=== PATIENT | male | born 1955 | race Caucasian/White ===

== ENCOUNTER 2020-06-24 13:01 | Outpatient (REF) | payer SELFPAY | END 2020-06-24 13:02 | disposition home or self-care (01) | LOC: HO.HAP 13:01 | PROVIDERS: Visit Provider Internal Medicine | DX: Z46.1 Encounter for fitting and adjustment of hearing aid (principal) | CPT/HCPCS: V5264 ==

== ENCOUNTER 2020-08-24 12:34 | Outpatient (REF) | payer OTHER, SELFPAY | END 2020-08-24 12:35 | disposition home or self-care (01) | LOC: HO.LAB 12:34 | PROVIDERS: PCP Internal Medicine; Visit Provider Internal Medicine | DX: Z20.828 Contact with and (suspected) exposure to other viral communicable diseases (principal) | CPT/HCPCS: C9803; U0003 ==

== ENCOUNTER 2021-03-13 06:07 | Outpatient (REF) | payer OTHER, SELFPAY ==
[2021-03-13 06:59] LABS: MANUAL DIFF FLAG NO
[2021-03-13 07:01] LABS: Basophils Absolute Auto 0.1 X10*3/uL (0.0-0.2); Basophils Percent Auto 0.6 % (0-2); Eosinophils Absolute Auto 0.6 X10*3/uL (0.0-0.4); Eosinophils Percent Auto 6.1 % (0-4); Hemoglobin 15.8 g/dl (14.0-18.0); Imm Gran Abs Auto 0.03 X10*3/uL (0.00-0.03); Imm Gran Pct Auto 0.3 % (0.0-0.4); Lymphocytes Absolute Auto 2.5 X10*3/uL (1.2-4.9); Lymphocytes Percent Auto 25.1 % (20-40); Mean Corpuscular HGB Conc 34.3 g/dl (31.0-36.0); Mean Corpuscular Hemoglobin 31.7 pg (27.0-33.0); Mean Corpuscular Volume 92.4 fL (80-98); Mean Platelet Volume 9.9 fL (9.4-12.4); Monocytes Absolute Auto 0.8 X10*3/uL (0.1-1.2); Monocytes Percent Auto 8.1 % (2-11); Neutrophils Absolute Auto 5.9 X10*3/uL (2.0-8.3); Neutrophils Percent Auto 59.8 % (45-73); Platelet Count 326 X10*3/uL (160-400); Red Blood Count 4.98 X10*6/uL (4.60-5.80); Red Cell Distribution Width 12.3 % (11.0-16.0); White Blood Count 9.8 X10*3/uL (4.8-10.8)
[2021-03-13 07:26] LABS: Alanine Aminotransferase 16 U/L (0-40); Albumin Level 4.6 g/dL (3.5-5.0); Alkaline Phosphatase 72 U/L (39-117); Anion Gap 14 (12-20); Aspartate Amino Transferase 21 U/L (5-37); Bilirubin Total 0.4 mg/dL (0.0-1.0); Blood Urea Nitrogen 16 mg/dL (9-16); Carbon Dioxide 29 mmol/L (22-29); Chloride 105 mmol/L (96-108); Cholesterol 172 mg/dL; Estimated Glomerular Filt Rate > 60; Glucose Random 134 mg/dL (60-115); HDL Cholesterol 52 mg/dL; LDL Cholesterol Calculated 100 mg/dl; Sodium 143 mmol/L (135-145); Total Protein 7.6 g/dL (6.5-8.0); Triglycerides 103 mg/dL
[2021-03-13 07:49] LABS: Free T4 (Free Thyroxine) 0.87 ng/dL (0.71-1.85); Prostate Specific Antigen Scr 2.95 ng/mL (<0.05-4.0); Thyroid Stimulating Hormone 0.67 uIU/mL (0.32-4.0)
[2021-03-13 08:12] LABS: Estimated Average Glucose 114 mg/dL; Hemoglobin A1C 151.9601 umol/L; Hemoglobin A1c % 5.6 %
[2021-03-13 08:17] LABS: Vitamin B12 540 pg/mL (200-900)
[2021-03-13 09:44] LABS: Creatinine Urine 78.79 mg/dL; Microalbumin Urine < 5.0 mg/L
== END 2021-03-13 06:08 | disposition home or self-care (01) ==
LOC: HO.LAB 06:07
PROVIDERS: PCP Internal Medicine; Visit Provider Internal Medicine
DX: Z12.5 Encounter for screening for malignant neoplasm of prostate (principal); E11.65 Type 2 diabetes mellitus with hyperglycemia; E78.00 Pure hypercholesterolemia, unspecified
CPT/HCPCS: 36415; 80053; 80061; 82043; 82607; 82746; 83036; 84153; 84439; 84443; 85025

== ENCOUNTER 2021-05-29 15:43 | Outpatient (REF) | payer OTHER, SELFPAY | END 2021-05-29 15:44 | disposition home or self-care (01) | LOC: HO.LAB 15:43 | PROVIDERS: PCP Internal Medicine; Visit Provider Internal Medicine | DX: Z20.822 Contact with and (suspected) exposure to COVID-19 (principal) | CPT/HCPCS: C9803; U0003; U0005 ==

== ENCOUNTER 2021-06-15 08:25 | Outpatient (REF) | payer OTHER, SELFPAY ==
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
--- NOTE | 2021-06-20 12:55 | MHC.AU.MED ---
Medical Clearance for Hearing Instrumentation Date: 06/20/21 Patient Name: Nabeel Saha Date of : 1955 Referring Provider: Kerline Chadwick MD We have seen your patient on 06/15/21 and have determined that they are a candidate for amplification (See accompanying report). Specifically, they would benefit from: Hearing aid use in both ears There is a statute that addresses Medical Evaluation Requirements prior to fitting a patient with a hearing aid. According to [place] statute 265 CMR:6.03(1), (a) General. Except as provided in 265 CMR 6.03(1)(b), a tenderizer tender shall not sell a hearing aid unless the prospective user has presented to the tenderizer tender a written statement signed by a licensed physician that states that the patient's hearing loss has been medically evaluated and the patient may be considered a candidate for a hearing aid. The medical evaluation must have taken place within the preceding six months. Please note: Due to the [place] Statute referenced above, we cannot accept a signature other than that of a licensed physician. DIVISION LEADER and PA signatures cannot be accepted. I am in agreement with the above recommendation. There is no medical contraindication for hearing instrumentation. Physician Signature Date Physician Name (Printed)
== END 2021-06-15 08:26 | disposition home or self-care (01) ==
LOC: HO.SH 08:25
PROVIDERS: Visit Provider Internal Medicine
DX: H91.90 Unspecified hearing loss, unspecified ear (principal)
CPT/HCPCS: 92557; 92567

== ENCOUNTER 2021-06-27 15:10 | Outpatient (REF) | payer SELFPAY | END 2021-06-27 15:11 | disposition home or self-care (01) | LOC: HO.HAP 15:10 | PROVIDERS: Visit Provider Internal Medicine | DX: Z13.89 Encounter for screening for other disorder (principal) ==

== ENCOUNTER → 2021-08-23 13:37 | Outpatient (BNVA) | payer OTHER, SELFPAY | PROVIDERS: PCP Internal Medicine; Visit Provider Dietitian, Registered | DX: E11.65 Type 2 diabetes mellitus with hyperglycemia (principal) | CPT/HCPCS: 97802 ==

== ENCOUNTER 2021-08-25 13:53 | Outpatient (REF) | payer SELFPAY | END 2021-08-25 13:54 | disposition home or self-care (01) | LOC: HO.HAP 13:53 | PROVIDERS: Visit Provider Internal Medicine | DX: Z13.89 Encounter for screening for other disorder (principal) ==

== ENCOUNTER 2021-10-24 14:02 | Outpatient (REF) | payer OTHER, SELFPAY ==
--- NOTE | ~2021-10-24 | US_ITS ---
EXAMINATION: US ABDOMEN COMPLETE CLINICAL INFORMATION: Right upper quadrant abdominal pain. COMPARISON: CT abdomen 03/11/2007 TECHNIQUE: Real-time imaging of the abdominal viscera. FINDINGS: PANCREAS: Normal. ABDOMINAL AORTA: The proximal, mid, and distal segments are normal in caliber. Calcific plaque is present in the aorta. INFERIOR VENA CAVA: Visualized portions are normal. LIVER: Normal. The liver is normal in size. The liver contour is normal. Parenchymal echogenicity is normal. No focal hepatic lesion. There is no intrahepatic biliary duct dilatation seen. GALLBLADDER: A single 3 mm polyp is present. The gallbladder is physiologically distended without evidence of stones, sludge, wall thickening or pericholecystic fluid. COMMON BILE DUCT: Normal in caliber measuring 0.24 cm in diameter. RIGHT KIDNEY: A 4 x 4 x 3 mm upper pole echogenic focus seen consistent with a calculus, nonobstructing. No hydronephrosis or focal parenchymal lesions. The kidney measures 12.4 cm in maximum dimension. LEFT KIDNEY: There is a 5 x 2 x 2 mm lower pole echogenic focus seen consistent with a nonobstructing calculus. At the time of the 2006 a distal obstructing stone was seen in left distal ureter. No hydronephrosis or focal parenchymal lesions. The kidney measures 12.7 cm in maximum dimension. SPLEEN: Normal. The spleen measures 12.2 cm in maximum dimension. FREE FLUID: None. US/US abdomen complete IMPRESSION: 1. Nonobstructing 5 mm left lower pole calculus. 2. A 4 mm nonobstructing right upper pole calculus. 3. A 3 mm gallbladder polyp.
== END 2021-10-24 14:03 | disposition home or self-care (01) ==
LOC: HO.HMGCX 14:02
PROVIDERS: PCP Internal Medicine; Visit Provider Internal Medicine
DX: R10.9 Unspecified abdominal pain (principal); R07.9 Chest pain, unspecified; M79.89 Other specified soft tissue disorders
CPT/HCPCS: 76700

== ENCOUNTER → 2021-10-25 13:28 | Outpatient (BNVA) | payer OTHER, SELFPAY | PROVIDERS: PCP Internal Medicine; Visit Provider Dietitian, Registered | DX: E11.65 Type 2 diabetes mellitus with hyperglycemia (principal); R63.4 Abnormal weight loss; Z68.22 Body mass index [BMI] 22.0-22.9, adult; Z79.84 Long term (current) use of oral hypoglycemic drugs | CPT/HCPCS: 97803 ==

== ENCOUNTER 2021-12-21 10:00 | Outpatient (RCR) | payer OTHER, SELFPAY ==
[2021-12-07 12:07] VITALS: BMI 23.0
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
--- NOTE | 2021-12-07 15:14 | PC.NURSE ---
Case opened in treatment team
--- NOTE | 2021-12-12 11:45 | PC.NURSE ---
I called and left a message with Raeann Early [facility], the clients therapsit, to call to discuss client progress and after care plans.
--- NOTE | 2021-12-12 14:29 | P.PNPSP_ITS ---
Subjective Subjective Date of Service: 12/12/21 Reason For Visit: excessive hoarding, ADHD Guardianship: No Medical Problems Affecting Mental Status: No Interim History: Reports today has been a stressful day so far . Attributes this to a long conversation he had yesterday with his sister. No SI/HI, no safety concerns. Continues with depressed mood, including poor sleep / appetite. Willing to try mirtazapine. Continues with nightmares, hoarding behaviors. Medication Compliance: Yes Side effects from medications: No Attending Groups: Yes Review of Systems Acute medical concerns: No Medical Review of Systems: unchanged Review of Systems Review of Systems Yes all other systems are reviewed and are negative Constitutional: Reports no additional constitutional complaints Mental Status Exam Mental Status Exam Narrative: Well-developed, well nourished male, in NAD. Patient Appearance: Well Grooomed and Appropriate Patient Orientation: Person, Place, Time and Situation Level of Consciousness: Awake, Appropriate and Alert Patient Behavior: Appropriate, Cooperative and Good Eye Contact Mood Description: Depressed and Anxious Affect Description: Depressed and Anxious Patient Cognition Impaired: No Ability to Follow Directions: Good Speech Pattern: Clear, Appropriate and Coherent Memory Description: Intact Hallucinations: None Delusions: Not Present Thought Process: Intact Thought Content: positive for Intact Depressive Symptoms: Increased Anxiety, Insomnia, Difficulty Sleeping, Changes in Appetite (decreased, eating only some days during week. ), Crying Spells, Loss of Int. in Activity, Feelings of Worthlessness, Hopelessness, Feelings of Guilt, Unhappiness, Increased Fatigue, Low Self Esteem and Difficulty Concentrating Judgement: Fair Diagnostics Vital Signs (24Hr): BMI result Body Mass Index 23.0 Assessment & Plan Assessment & Plan (1) MDD (major depressive disorder), recurrent episode, moderate: Status: Acute Code(s): F33.1 - Major depressive disorder, recurrent, moderate Assessment and Plan: Reports today has been a stressful day so far . Attributes this to a long conversation he had yesterday with his sister. No SI/HI, no safety concerns. Continues with depressed mood, including poor sleep / appetite. Willing to try mirtazapine. Continues with nightmares, hoarding behaviors. Discussed stopping trazodone, and trying mirtazapine at night, in order to help with sleep and appetite. He reports he has had to force himself to eat at times due to his depression, and does not want to lose any more weight. We also discussed prazosin for nightmares. He was advisedto discuss with his primary care provider first, as he is already prescribed losartan, which is an antihypertensive, but also has protective factors regarding kidney damage related to diabetes. Discussed potential for low BP if added prazosin to current med regimen. He says that groups are helping. He says conversation with sister was difficult, but that she was supportive. He spent some time with a friend yesterday, which he says was also helpful. (2) Chronic post-traumatic stress disorder (PTSD): Status: Acute Code(s): F43.12 - Post-traumatic stress disorder, chronic (3) Hoarding disorder: Status: Acute Code(s): F42.3 - Hoarding disorder Plan 1. Stop trazodone. 2. Start mirtazapine 7.5mg at bedtime. (7-day script sent to pharmacy). 3. Continue with current [facility] plan of care. 4. Follow-up as per protocol. Patient educated on: diagnosis, medication risk/benefits, therapeutic strategies and medical condition Informed Consent: understands Reason for contiued partial hosp. stay Substantial Risk for: harm to self, inability to function, rapid decompensation and med/psych decompensation Certification I certify that partial hospital treatment is medically necessary due to the symptoms and problems resulting from the patient's mental illness and the failure to treat the patient at the partial hospital level of care would likely result in the patient requiring inpatient psychiatric care which could not be prevented at a less intensive level of care. I spent minutes with the patient and/or on the patient floor today, greater than?50% of which was spent counseling/coordinating care. Discharge Plan Discharge Attending provider: Jeramie Gonzalse Medications: New mirtazapine 7.5 mg tablet 7.5 mg PO BEDTIME 7 Days Qty: 7 0RF Discontinued trazodone 100 mg tablet 100 mg PO BEDTIME PRN (Reason: sleep) Qty: 30 4RF No Action simvastatin 5 mg tablet 5 mg PO DAILY 0RF lorazepam 1 mg tablet 1 mg PO BID-TID PRN (Reason: anxiety) 30 Days Qty: 90 0RF Rx Instructions: Take 2-3 times daily as needed. metformin 500 mg tablet 500 mg PO BID Qty: 180 3RF losartan 25 mg tablet 25 mg PO DAILY Qty: 90 3RF methylphenidate HCl 60 mg capsule,ER biphasic 50-50 60 mg PO DAILY 30 Days Qty: 30 0RF gabapentin 300 mg capsule 600 mg PO TID 90 Days Qty: 540 2RF sertraline 100 mg tablet 200 mg PO DAILY Qty: 180 2RF bupropion HCl 150 mg tablet sustained-release 12 hr 150 mg PO DAILY Qty: 30 0RF mupirocin 2 % ointment 1 appl topical TID Qty: 22 0RF Telehealth Telehealth Location of provider rendering services: practice address Location of patient: address on file Patient Identification confirmed using: Name, : Yes Telehealth method: video Patient verbally consented to treatment: Yes Patient verbally consented to billing insurance company: Yes Patient informed of any privacy concerns related to visit: Yes Time spent with patient (mins): 20
--- NOTE | 2021-12-18 11:51 | PC.NURSE ---
I called the client to talked about the clutter anonymous groups online. He agrees to gideon which times may work for him.
--- NOTE | 2021-12-20 08:27 | PC.NURSE ---
I spoke with the clients therapist Raeann GARCIA. We discussed client's depression and disorganization and the possibility of having the client stay longer in [facility].
--- NOTE | 2021-12-20 11:34 | P.PNPSP_ITS ---
Subjective Subjective Date of Service: 12/20/21 Reason For Visit: excessive hoarding, ADHD Guardianship: No Medical Problems Affecting Mental Status: No Interim History: Describes mood as sad . No SI/HI. Has anxiety regarding what to do after d/c from [facility] today, structure. RTW on Saturday. Asking for work note. Plans to try [employer] for hoarding. Medication Compliance: Yes Side effects from medications: No Attending Groups: Yes Review of Systems Acute medical concerns: No Medical Review of Systems: unchanged Review of Systems Review of Systems Yes all other systems are reviewed and are negative Constitutional: Reports no additional constitutional complaints Mental Status Exam Mental Status Exam Narrative: Met with patient over phone, due to a difficulty he had with logging into meeting. Speech/language was regular rate and rhythm, full prosody, normal volume. Patient Appearance: Appropriate Patient Orientation: Person, Place, Time and Situation Level of Consciousness: Awake, Appropriate and Alert Patient Behavior: Appropriate and Cooperative Mood Description: Sad Affect Description: Anxious Patient Cognition Impaired: No Ability to Follow Directions: Good Speech Pattern: Clear, Appropriate and Coherent Memory Description: Intact Hallucinations: None Delusions: Not Present Thought Process: Intact, Goal Oriented and Linear Thought Content: positive for Intact, positive for Goal Oriented and positive for Linear Depressive Symptoms: Increased Anxiety, Loss of Int. in Activity, Unhappiness, Low Self Esteem and Difficulty Concentrating Judgement: Good Judgement and Insight: Displays insight, states he knows he needs to focus on issues in therapy, includ ing hoarding. Diagnostics Vital Signs (24Hr): BMI result Body Mass Index 23.0 Assessment & Plan Assessment & Plan (1) Hoarding disorder: Status: Acute Code(s): F42.3 - Hoarding disorder Assessment and Plan: Patient expressed ongoing anxiety related to his hoarding. He plans to contact [employer], and is hoping that there 12 step approach will be helpful/useful. He would like to attend a meeting in the [place] area. (2) MDD (major depressive disorder), recurrent episode, moderate: Status: Acute Code(s): F33.1 - Major depressive disorder, recurrent, moderate Assessment and Plan: Patient describes his mood today as ?sad ?. He states that he has found PHP to be helpful. He expressed anxiety regarding completing program and returning to work. He states that he is nervous, and does not feel ready to resume his full duties at work. Discussed in detail possibility of his speaking with his outpatient providers to take a further leave of absence from work. He states that he would like to do this, and plans to contact them. No SI/HI, no safety concern at this time. Patient is satisfied with current medication regimen, no changes at this time. He will continue to work with his primary care provider regarding medications. (3) Chronic post-traumatic stress disorder (PTSD): Status: Acute Code(s): F43.12 - Post-traumatic stress disorder, chronic (4) Anxiety: Status: Acute Code(s): F41.9 - Anxiety disorder, unspecified Plan 1. Patient appears stable for discharge from [facility] at this time. 2. Patient will follow-up with outpatient providers going forward. Patient educated on: diagnosis, medication risk/benefits and therapeutic strategies Informed Consent: understands Reason for contiued partial hosp. stay Substantial Risk for: stable for discharge Certification I certify that partial hospital treatment is medically necessary due to the symp toms and problems resulting from the patient's mental illness and the failure to treat the patient at the partial hospital level of care would likely result in the patient requiring inpatient psychiatric care which could not be prevented at a less intensive level of care. I spent 25_ minutes with the patient and/or on the patient floor today, greater than?50% of which was spent counseling/coordinating care. Discharge Plan Discharge Attending provider: Jeramie Gonzales Medications: New mirtazapine 7.5 mg tablet 7.5 mg PO BEDTIME 7 Days Qty: 7 0RF Discontinued trazodone 100 mg tablet 100 mg PO BEDTIME PRN (Reason: sleep) Qty: 30 4RF No Action simvastatin 5 mg tablet 5 mg PO DAILY 0RF lorazepam 1 mg tablet 1 mg PO BID-TID PRN (Reason: anxiety) 30 Days Qty: 90 0RF Rx Instructions: Take 2-3 times daily as needed. metformin 500 mg tablet 500 mg PO BID Qty: 180 3RF losartan 25 mg tablet 25 mg PO DAILY Qty: 90 3RF methylphenidate HCl 60 mg capsule,ER biphasic 50-50 60 mg PO DAILY 30 Days Qty: 30 0RF gabapentin 300 mg capsule 600 mg PO TID 90 Days Qty: 540 2RF sertraline 100 mg tablet 200 mg PO DAILY Qty: 180 2RF bupropion HCl 150 mg tablet sustained-release 12 hr 150 mg PO DAILY Qty: 30 0RF mupirocin 2 % ointment 1 appl topical TID Qty: 22 0RF Stand Alone Forms: Patient Portal Discharge page Telehealth Telehealth Location of provider rendering services: practice address Location of patient: address on file Patient Identification confirmed using: Name, : Yes Telehealth method: voice only (Patient was unable to log into video, visit was held via telephone.) Patient verbally consented to treatment: Yes Patient verbally consented to billing insurance company: Yes Patient informed of any privacy concerns related to visit: Yes Minutes spent on Phone/Video with Pt.: 20
--- NOTE | 2021-12-20 13:02 | PC.NURSE ---
Patient scheduled to discharge from the program today. Patient stated he feels sad regarding leaving the program and stated he does not feel ready to go back to work however stated he is currently using his vacation time in order to do the program. Educated patient about talking to human resources regarding his benefits and mental health. Patient stated he would look into it. Patient denied SI or thoughts to harm himself. Reviewed patient medications with patient. Patient reports he is taking them as prescribed.
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
--- NOTE | 2021-12-22 08:37 | PC.NURSE ---
Patient struggling with severe depressive sxs with passive SI. Patient referred to [facility] ER crisis for an evaluation d/t symptoms. See Giana Hastings QA ARCHITECT note. Patient was admitted to inpatient level of care.
--- NOTE | 2021-12-22 10:22 | PC.NURSE ---
I spoke with the clients therapist Brit GARCIA about the clients presentation yesterday and inpatient admission
== END 2021-12-21 23:59 | disposition home or self-care (01) ==
LOC: HO.PHPA 10:00
PROVIDERS: Visit Provider Psychiatry & Neurology Psychiatry
DX: F33.1 Major depressive disorder, recurrent, moderate (principal); F43.12 Post-traumatic stress disorder, chronic; F42.3 Hoarding disorder; F90.2 Attention-deficit hyperactivity disorder, combined type
CPT/HCPCS: 90791; 90853

== ENCOUNTER 2021-12-21 14:38 | Inpatient (IN) | payer OTHER, SELFPAY ==
--- NOTE | 2021-12-21 | ECG_ITS ---
Test Reason : CP Blood Pressure : / mmHG Vent. Rate : 086 BPM Atrial Rate : 086 BPM P-R Int : 132 ms QRS Dur : 092 ms QT Int : 382 ms P-R-T Axes : 064 035 046 degrees QTc Int : 457 ms Normal sinus rhythm Normal ECG When compared with ECG of 20-MAY-2015 10:07, No significant change was found Referred By: Generic ED Physician Electronically Signed By:ROSARIO MANZANO MD
--- NOTE | ~2021-12-21 | XR_ITS ---
EXAMINATION: XR CHEST CLINICAL INFORMATION: Shortness of breath COMPARISON: None TECHNIQUE: Frontal view of the chest was obtained. FINDINGS: The lungs are well expanded. There is no focal consolidation, edema, or effusion. No pneumothorax. The cardiomediastinal silhouette is within normal limits. No acute osseous abnormality. XR/XR chest 1V IMPRESSION: Clear lungs.
--- NOTE | ~2021-12-21 | XR_ITS ---
EXAMINATION: XR WRIST, RIGHT CLINICAL INFORMATION: Fall. Pain. COMPARISON: None TECHNIQUE: PA, lateral, and oblique views of the right wrist. FINDINGS: No displaced fracture. No dislocation. Joint spaces are normal. No soft tissue abnormality. XR/XR wrist RT 2V IMPRESSION: No acute abnormality of the wrist. If the pain persists consider follow-up studies.
[2021-12-21 14:49] VITALS: BP 121/81; PULSE 118; RESP 17; TEMP 36.6; O2SAT 98; BMI 21.1
[2021-12-21 15:10] LABS: MANUAL DIFF FLAG NO
[2021-12-21 15:16] LABS: Basophils Absolute Auto 0.1 X10*3/uL (0.0-0.2); Basophils Percent Auto 0.5 % (0-2); Eosinophils Absolute Auto 0.5 X10*3/uL (0.0-0.4); Eosinophils Percent Auto 3.8 % (0-4); Hematocrit 45.2 % (42.0-52.0); Hemoglobin 15.6 g/dl (14.0-18.0); Imm Gran Abs Auto 0.07 X10*3/uL (0.00-0.03); Imm Gran Pct Auto 0.6 % (0.0-0.4); Lymphocytes Absolute Auto 2.4 X10*3/uL (1.2-4.9); Lymphocytes Percent Auto 19.6 % (20-40); Mean Corpuscular HGB Conc 34.5 g/dl (31.0-36.0); Mean Corpuscular Hemoglobin 31.7 pg (27.0-33.0); Mean Corpuscular Volume 91.9 fL (80.0-98.0); Mean Platelet Volume 9.1 fL (9.4-12.4); Monocytes Absolute Auto 1.2 X10*3/uL (0.1-1.2); Monocytes Percent Auto 9.9 % (2-11); Neutrophils Absolute Auto 7.9 x10*3/uL (2.0-8.3); Neutrophils Percent Auto 65.6 % (45-73); Platelet Count 314 X10*3/uL (160-400); Red Blood Count 4.92 X10*6/uL (4.60-5.80); Red Cell Distribution Width 12.1 % (11.0-16.0)
[2021-12-21 15:25] LABS: Ethanol < 10 mg/dL
[2021-12-21 15:26] LABS: Anion Gap 16 (12-20); Blood Urea Nitrogen 18 mg/dL (9-16); Calcium 10.1 mg/dL (8.4-10.2); Carbon Dioxide 29 mmol/L (22-29); Chloride 100 mmol/L (96-108); Creatinine Clr Calc Pharmacy 70.3; Estimated Glomerular Filt Rate > 60; Glucose Random 129 mg/dL (60-115); Potassium 4.8 mmol/L (3.3-5.1); Sodium 140 mmol/L (135-145)
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
[2021-12-21 16:48] LABS: Appearance Urine CLEAR; Color Urine YELLOW; Glucose Urine UA NEG (NEG); Leukocyte Esterase Urine NEG (NEG); Nitrite Urine NEG (NEG); PH 5.5 (5.0-8.0); Urine Blood NEG (NEG); Urine Ketones NEG (NEG); Urine Protein NEG (NEG-TRACE)
[2021-12-21 16:56] LABS: Amphetamine Screen Urine Not Detected (Not Detect); Barbiturates, Urine Not Detected (Not Detect); Benzodiazepines Screen Urine Not Detected (Not Detect); Cannabinoid Screen Urine Not Detected (Not Detect); Cocaine Screen Urine Not Detected (Not Detect); Fentanyl, urine Not Detected (Not Detect); Opiate Screen Urine Not Detected (Not Detect); Phencyclidine Screen Urine Not Detected (Not Detect)
[2021-12-21 16:57] LABS: Magnesium 2.2 mg/dL (1.6-2.6)
[2021-12-21 17:07] LABS: B Type Natriuretic Peptide 14 pg/mL (<100); Troponin-I High Sensitivity 11.3 ng/L (<3.5-35.0)
[2021-12-21 17:14] LABS: COVID-19 Test Negative (Negative)
[2021-12-21 18:11] LABS: Ethanol < 10 mg/dL
[2021-12-21 18:18] LABS: Troponin-I High Sensitivity 11.5 ng/L (<3.5-35.0)
[2021-12-21] MEDS: Gabapentin 300 MG CAPSULE 600 MG PO (20:42)
[2021-12-21] MEDS: Mirtazapine 7.5 MG TABLET PO (20:43)
[2021-12-21] MEDS: metFORMIN HCl 500 MG TABLET PO (20:43)
[2021-12-21 20:50] VITALS: BP 141/79; PULSE 80; RESP 18; TEMP 36.1; O2SAT 99
[2021-12-21] MEDS: LORazepam 1 MG TABLET PO (22:20)
[2021-12-21] MEDS: traZODone HCL 50 MG TABLET PO (22:20)
--- NOTE | 2021-12-22 00:54 | PC.NURSE ---
Pt refusing 2021 flu vaccine, stated already vaccinated.
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
[2021-12-22 06:00] VITALS: BP 115/75; PULSE 92; RESP 16; TEMP 36.9; O2SAT 94
[2021-12-22 08:15] LABS: Estimated Average Glucose 105 mg/dL; Hemoglobin A1c % 5.3 %
[2021-12-22 08:16] LABS: Cholesterol 141 mg/dL; HDL Cholesterol 51 mg/dL; LDL Cholesterol Calculated 78 mg/dl; Magnesium 2.4 mg/dL (1.6-2.6); Triglycerides 64 mg/dL
[2021-12-22 08:37] LABS: Free T4 (Free Thyroxine) 1.22 ng/dL (0.71-1.85); Thyroid Stimulating Hormone 1.19 uIU/mL (0.32-4.0)
[2021-12-22 08:56] LABS: Vitamin B12 653 pg/mL (200-900)
[2021-12-22] MEDS: metFORMIN HCl 500 MG TABLET PO ×2 (09:16→21:45)
[2021-12-22] MEDS: Losartan Potassium 25 MG TABLET PO (09:16)
[2021-12-22] MEDS: Sertraline HCL 100 MG TABLET 200 MG PO (09:16)
[2021-12-22] MEDS: Gabapentin 300 MG CAPSULE 600 MG PO ×3 (09:16→21:45)
[2021-12-22] MEDS: buPROPion HCL 75 MG TABLET PO ×2 (09:16→21:45)
--- NOTE | 2021-12-22 14:46 | PC.NURSE ---
Pt participated in [facility] screen on this date, scored 27/30, indicating cognition is within normal limits. Nurse and WHARFINGER CHIEF aware.
[2021-12-22 17:25] VITALS: BP 102/78; PULSE 76; RESP 16; TEMP 36; O2SAT 94
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
[2021-12-22] MEDS: Atorvastatin Calcium 10 MG TABLET 5 MG PO (21:44)
[2021-12-22] MEDS: Mirtazapine 7.5 MG TABLET PO (21:45)
[2021-12-23 06:20] VITALS: BP 125/59; PULSE 60; RESP 18; TEMP 36.3; O2SAT 97
[2021-12-23] MEDS: Sertraline HCL 100 MG TABLET 200 MG PO (08:25)
[2021-12-23] MEDS: buPROPion HCL 75 MG TABLET PO ×2 (08:25→21:24)
[2021-12-23] MEDS: Gabapentin 300 MG CAPSULE 600 MG PO ×3 (08:25→21:24)
[2021-12-23] MEDS: Losartan Potassium 25 MG TABLET PO (08:25)
[2021-12-23] MEDS: metFORMIN HCl 500 MG TABLET PO ×2 (08:25→21:30)
[2021-12-23 12:33] LABS: Glucose, Whole Blood 87 mg/dL (60-115)
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
[2021-12-23 18:00] VITALS: BP 141/78; PULSE 81; TEMP 36.3; O2SAT 98
[2021-12-23] MEDS: Mirtazapine 7.5 MG TABLET PO (21:24)
[2021-12-23] MEDS: Atorvastatin Calcium 10 MG TABLET 5 MG PO (21:25)
[2021-12-24] MEDS: traZODone HCL 50 MG TABLET PO ×2 (01:37→21:22)
[2021-12-24] MEDS: Milk of Magnesia 30 ML ORAL.SUSP PO (02:10)
[2021-12-24] MEDS: LORazepam 1 MG TABLET PO ×3 (03:48→21:21)
[2021-12-24 06:00] VITALS: BP 122/68; PULSE 71; RESP 14; TEMP 36.8; O2SAT 98
[2021-12-24] MEDS: Sertraline HCL 100 MG TABLET 200 MG PO (09:37)
[2021-12-24] MEDS: buPROPion HCL 75 MG TABLET PO ×2 (09:38→21:21)
[2021-12-24] MEDS: Gabapentin 300 MG CAPSULE 600 MG PO ×3 (09:38→21:21)
[2021-12-24] MEDS: Losartan Potassium 25 MG TABLET PO (09:38)
[2021-12-24] MEDS: metFORMIN HCl 500 MG TABLET PO ×2 (09:38→21:21)
[2021-12-24 12:33] LABS: Glucose, Whole Blood 95 mg/dL (60-115)
--- NOTE | 2021-12-24 13:35 | HO.PSYCHPN ---
Subjective Subjective Date of Service: 12/24/21 Reason For Visit: Depression,SI Interim History: Patient reports he is doing fine. No SI. Had trouble sleeping last night and asked for trazodone and Ativan to be scheduled instead of left as a p.r.n.. Patient says he takes Ativan 1 mg at bedtime at home pretty much every night. Corporate Accounting Manager may changes. Mental Status Exam Mental Status Exam Narrative: Patient Appearance:?Appropriate Patient Orientation:?Person, Place, Time and Situation Level of Consciousness:?Awake and Alert Patient Behavior:?Appropriate, Talkative, Cooperative and Good Eye Contact Mood Description:? ok Affect Description:?congruent Patient Cognition Impaired:?No Ability to Follow Directions:?Good Speech Pattern:?Spontaneous Speech Memory Description:?Intact Perceptual Disturbances: none Thought Process: goal oriented and circumstantial Thought Content:?denies SI/HI Depressive Symptoms:?Increased Anxiety, Insomnia, Diff. Making Decisions, Difficulty Sleeping, Changes in Appetite, Significant Weight Loss, Loss of Int. in Activity, Feelings of Worthlessness, Isolating-Friends/Family, Feelings of Guilt, Unhappiness, Increased Fatigue, Low Self Esteem, Loss of Energy and Difficulty Concentrating Judgement:?Fair Diagnostics Vital Signs (24Hr): Vital Signs - 24 hr 12/23/21 18:00 12/24/21 06:00 Temperature 97.3 F 98.2 F Pulse Rate 81 71 Respiratory Rate 14 Blood Pressure 141/78 H 122/68 Pulse Oximetry 98 98 BMI result Body Mass Index 21.1 Labs Results: 12/21/21 15:02 12/21/21 15:02 Labs: Laboratory Results - last 48 hr 12/23/21 12/24/21 12:28 12:28 POC Glucose 87 95 Imaging Radiology Impressions: ITS Impressions Chest X-Ray 12/21/21 16:38 IMPRESSION: Clear lungs. Wrist X-Ray 12/22/21 13:51 IMPRESSION: No acute abnormality of the wrist. If the pain persists consider follow-up studies. Medications Medications Current Medications Acetaminophen (Acetaminophen 325 Mg Tablet) 650 mg PO Q6H PRN PRN Reason: Headache/Pain Mild Scale (1-3) Al Hydroxide/Mg Hydroxide (Magnesium Hydrox/Alum Hydrox 30 Ml Oral.Susp) 30 ml PO Q6H PRN PRN Reason: Heartburn/Nausea Atorvastatin Calcium (Atorvastatin Calcium 10 Mg Tablet) 5 mg PO BEDTIME [facility] Last Admin: 12/23/21 21:25 Dose: 5 mg Documented by: Bupropion HCl (Bupropion Hcl 75 Mg Tablet) 75 mg PO BID [facility] Last Admin: 12/24/21 09:38 Dose: 75 mg Documented by: Gabapentin (Gabapentin 300 Mg Capsule) 600 mg PO TID [facility] Last Admin: 12/24/21 09:38 Dose: 600 mg Documented by: Hydroxyzine HCl (Hydroxyzine Hcl 25 Mg Tablet) 25 mg PO Q6H PRN PRN Reason: Anxiety Lorazepam (Lorazepam 1 Mg Tablet) 1 mg PO BID PRN PRN Reason: anxiety Lorazepam (Lorazepam 1 Mg Tablet) 1 mg PO BEDTIME [facility] Losartan Potassium (Losartan Potassium 25 Mg Tablet) 25 mg PO DAILY [facility]; Protocol Last Admin: 12/24/21 09:38 Dose: 25 mg Documented by: Magnesium Hydroxide (Milk Of Magnesia 30 Ml Oral.Susp) 30 ml PO DAILY PRN PRN Reason: Constipation Last Admin: 12/24/21 02:10 Dose: 30 ml Documented by: Metformin HCl (Metformin Hcl 500 Mg Tablet) 500 mg PO BID [facility] Last Admin: 12/24/21 09:38 Dose: 500 mg Documented by: Mirtazapine (Mirtazapine 7.5 Mg Tablet) 7.5 mg PO BEDTIME [facility] Last Admin: 12/23/21 21:24 Dose: 7.5 mg Documented by: Sertraline HCl (Sertraline Hcl 100 Mg Tablet) 200 mg PO DAILY [facility] Last Admin: 12/24/21 09:37 Dose: 200 mg Documented by: Sodium Chloride (Sodium Chloride 0.65 % Nasal 44 Ml Sprbtl) 1 spray NOSTRIL-B Q1H PRN PRN Reason: dry nares Trazodone HCl (Trazodone Hcl 50 Mg Tablet) 50 mg PO BEDTIME [facility] Allergies Allergies Allergy/AdvReac Type Severity Reaction Status Date / Time codeine [Codeine] Allergy Mild N/V Verified 12/05/21 16:48 bacitracin Allergy Unknown Unknown Verified 12/05/21 16:48 lisinopril Allergy Unknown Unknown Verified 12/05/21 16:48 Assessment & Plan Assessment & Plan (1) Chronic post-traumatic stress disorder (PTSD): Status: Acute Code(s): F43.12 - Post-traumatic stress disorder, chronic (2) MDD (major depressive disorder), recurrent episode, moderate: Status: Acute Code(s): F33.1 - Major depressive disorder, recurrent, moderate (3) Hoarding disorder: Status: Acute Code(s): F42.3 - Hoarding disorder Plan 66 yo male with PTSD, recurrent MDD, hoarding sx (OCD) with current exacerbation of PTSD sx, conflicts at work and reports of difficulty at home [place] . Plan: Abilify 5 mg daily Continue other medications 12/23 no change in treatment plan 12/24 made trazodone 50 mg scheduled Made Ativan 1 mg q.h.s. scheduled; patient says he takes every night at home I spent minutes with the patient and/or on the patient floor today, greater than?50% of which was spent counseling/coordinating care. Reason for contiued inpatient stay Substantial Risk for: med/psych decompensation
[2021-12-24 18:00] VITALS: BP 129/74; PULSE 89; RESP 16; TEMP 36.6; O2SAT 98
[2021-12-24] MEDS: Mirtazapine 7.5 MG TABLET PO (21:21)
[2021-12-24] MEDS: Atorvastatin Calcium 10 MG TABLET 5 MG PO (21:21)
[2021-12-25] MEDS: hydrOXYzine HCL 25 MG TABLET PO (03:03)
[2021-12-25 06:40] LABS: Glucose, Whole Blood 114 mg/dL (60-115)
[2021-12-25] MEDS: Gabapentin 300 MG CAPSULE 600 MG PO ×3 (08:00→22:09)
[2021-12-25] MEDS: Sertraline HCL 100 MG TABLET 200 MG PO (08:00)
[2021-12-25] MEDS: Losartan Potassium 25 MG TABLET PO (08:00)
[2021-12-25] MEDS: buPROPion HCL 75 MG TABLET PO ×2 (08:00→22:09)
[2021-12-25] MEDS: metFORMIN HCl 500 MG TABLET PO ×2 (08:00→22:09)
[2021-12-25 10:47] VITALS: BP 138/80; PULSE 78; RESP 14; TEMP 36.6; O2SAT 98
--- NOTE | 2021-12-25 16:39 | P.PNPSI_ITS ---
Subjective Subjective Date of Service: 12/25/21 Reason For Visit: Depression,SI Subjective Notes: Conditional Voluntary Healthcare Proxy: No Guardianship: No Medical Problems Affecting Mental Status: No Interim History: Reports sleep quality as a symptom-staying asleep is problematic. Discussed Abilify and not having any SE but no noted positive change as well. Reports depressive sx, poor appetite, with weight loss [employer]. Agrees to a trial of Ensure. Interested in reading Stuff-Compulsive Hoarding and the Meaning of Things and Buried in Treasures . Medication Compliance: Yes Side effects from medications: No Attending Groups: No Review of Systems Acute medical concerns: No Medical Review of Systems: unchanged Review of Systems Reports behavioral changes and Reports memory loss Psychiatric: Reports anxiety, Reports behavioral changes, Reports depression, Reports difficulty concentrating, Reports hopelessness, Reports anhedonia and Reports memory loss Mental Status Exam Mental Status Exam Patient Appearance: Appropriate Patient Orientation: Person, Place, Time and Situation Level of Consciousness: Alert Patient Behavior: Talkative and Good Eye Contact Mood Description: Depressed Affect Description: Flat Patient Cognition Impaired: No Ability to Follow Directions: Good Speech Pattern: Spontaneous Speech Memory Description: Episodic Impaired Hallucinations: None Delusions: Not Present Thought Process: Distracted and Rumination Thought Content: positive for Intact and positive for Perseveration Depressive Symptoms: Increased Anxiety, Diff. Making Decisions, Loss of Int. in Activity, Feelings of Worthlessness, Hopelessness, Feelings of Guilt, Unhappine ss, Increased Fatigue, Low Self Esteem, Loss of Energy and Difficulty Concentrating Judgement: Fair Diagnostics Vital Signs (24Hr): Vital Signs - 24 hr 12/24/21 18:00 12/25/21 10:47 Temperature 97.8 F 98 F Pulse Rate 89 78 Respiratory Rate 16 14 Blood Pressure 129/74 138/80 Pulse Oximetry 98 98 BMI result Body Mass Index 21.1 Labs Results: 12/21/21 15:02 12/21/21 15:02 Labs: Laboratory Results - last 48 hr 12/24/21 12/25/21 12:28 06:36 POC Glucose 95 114 Imaging Radiology Impressions: ITS Impressions Chest X-Ray 12/21/21 16:38 IMPRESSION: Clear lungs. Wrist X-Ray 12/22/21 13:51 IMPRESSION: No acute abnormality of the wrist. If the pain persists consider follow-up studies. Medications Medications Current Medications Acetaminophen (Acetaminophen 325 Mg Tablet) 650 mg PO Q6H PRN PRN Reason: Headache/Pain Mild Scale (1-3) Al Hydroxide/Mg Hydroxide (Magnesium Hydrox/Alum Hydrox 30 Ml Oral.Susp) 30 ml PO Q6H PRN PRN Reason: Heartburn/Nausea Atorvastatin Calcium (Atorvastatin Calcium 10 Mg Tablet) 5 mg PO BEDTIME [facility] Last Admin: 12/24/21 21:21 Dose: 5 mg Documented by: Bupropion HCl (Bupropion Hcl 75 Mg Tablet) 75 mg PO BID [facility] Last Admin: 12/25/21 08:00 Dose: 75 mg Documented by: Gabapentin (Gabapentin 300 Mg Capsule) 600 mg PO TID [facility] Last Admin: 12/25/21 14:02 Dose: 600 mg Documented by: Hydroxyzine HCl (Hydroxyzine Hcl 25 Mg Tablet) 25 mg PO Q6H PRN PRN Reason: Anxiety Last Admin: 12/25/21 03:03 Dose: 25 mg Documented by: Lorazepam (Lorazepam 1 Mg Tablet) 1 mg PO BID PRN PRN Reason: anxiety Last Admin: 12/24/21 14:18 Dose: 1 mg Documented by: Lorazepam (Lorazepam 1 Mg Tablet) 1 mg PO BEDTIME [facility] Last Admin: 12/24/21 21:21 Dose: 1 mg Documented by: Losartan Potassium (Losartan Potassium 25 Mg Tablet) 25 mg PO DAILY [facility]; Protocol Last Admin: 12/25/21 08:00 Dose: 25 mg Documented by: Magnesium Hydroxide (Milk Of Magnesia 30 Ml Oral.Susp) 30 ml PO DAILY PRN PRN Reason: Constipation Last Admin: 12/24/21 02:10 Dose: 30 ml Documented by: Metformin HCl (Metformin Hcl 500 Mg Tablet) 500 mg PO BID [facility] Last Admin: 12/25/21 08:00 Dose: 500 mg Documented by: Mirtazapine (Mirtazapine 7.5 Mg Tablet) 7.5 mg PO BEDTIME [facility] Last Admin: 12/24/21 21:21 Dose: 7.5 mg Documented by: Sertraline HCl (Sertraline Hcl 100 Mg Tablet) 200 mg PO DAILY [facility] Last Admin: 12/25/21 08:00 Dose: 200 mg Documented by: Sodium Chloride (Sodium Chloride 0.65 % Nasal 44 Ml Sprbtl) 1 spray NOSTRIL-B Q1H PRN PRN Reason: dry nares Trazodone HCl (Trazodone Hcl 50 Mg Tablet) 50 mg PO BEDTIME [facility] Last Admin: 12/24/21 21:22 Dose: 50 mg Documented by: Allergies Allergies Allergy/AdvReac Type Severity Reaction Status Date / Time codeine [Codeine] Allergy Mild N/V Verified 12/05/21 16:48 bacitracin Allergy Unknown Unknown Verified 12/05/21 16:48 lisinopril Allergy Unknown Unknown Verified 12/05/21 16:48 Assessment & Plan Assessment & Plan (1) Chronic post-traumatic stress disorder (PTSD): Status: Acute Code(s): F43.12 - Post-traumatic stress disorder, chronic (2) MDD (major depressive disorder), recurrent episode, moderate: Status: Acute Code(s): F33.1 - Major depressive disorder, recurrent, moderate (3) Hoarding disorder: Status: Acute Code(s): F42.3 - Hoarding disorder Plan 66 yo male with PTSD, recurrent MDD, hoarding sx (OCD) with current exacerbation of PTSD sx, conflicts at work and reports of difficulty at home I live in paths at home . Plan: Abilify 5 mg daily Continue other medications 12/23 no change in treatment plan 12/24 made trazodone 50 mg scheduled Made Ativan 1 mg q.h.s. scheduled; patient says he takes every night at home 12/25/21 Insomnia-Increase Trazodone to 100 mg hs Ensure tid Increase Abilify to 10 mg daily I spent minutes with the patient and/or on the patient floor today, greater than?50% of which was spent counseling/coordinating care. Patient educated on: medication risk/benefits and therapeutic strategies Informed Consent: understands and further education needed Reason for contiued inpatient stay Substantial Risk for: inability to function and rapid decompensation
[2021-12-25] MEDS: LORazepam 1 MG TABLET PO ×2 (18:42→22:12)
[2021-12-25 21:55] VITALS: BP 140/87; PULSE 74; TEMP 35.9; O2SAT 97
[2021-12-25] MEDS: Atorvastatin Calcium 10 MG TABLET 5 MG PO (22:08)
[2021-12-25] MEDS: Mirtazapine 7.5 MG TABLET PO (22:09)
[2021-12-25] MEDS: traZODone HCL 100 MG TABLET PO (22:09)
[2021-12-26] MEDS: hydrOXYzine HCL 25 MG TABLET PO (01:53)
[2021-12-26 06:00] VITALS: BP 104/53; PULSE 64; RESP 14; TEMP 37.4; O2SAT 97
[2021-12-26 06:26] LABS: Glucose, Whole Blood 137 mg/dL (60-115)
[2021-12-26] MEDS: buPROPion HCL 75 MG TABLET PO ×2 (09:35→20:08)
[2021-12-26] MEDS: Sertraline HCL 100 MG TABLET 200 MG PO (09:35)
[2021-12-26] MEDS: ARIPiprazole 10 MG TABLET PO (09:35)
[2021-12-26] MEDS: Losartan Potassium 25 MG TABLET PO (09:35)
[2021-12-26] MEDS: Gabapentin 300 MG CAPSULE 600 MG PO ×3 (09:35→20:08)
[2021-12-26] MEDS: metFORMIN HCl 500 MG TABLET PO ×2 (09:36→20:08)
[2021-12-26 13:31] LABS: Creatinine Clr Calc Pharmacy 97.6; Estimated Glomerular Filt Rate > 60
--- NOTE | 2021-12-26 14:50 | HO.PSYCHPN ---
Subjective Subjective Date of Service: 12/26/21 Reason For Visit: Depression,SI Subjective Notes: Conditional Voluntary Healthcare Proxy: No Guardianship: No Medical Problems Affecting Mental Status: No Interim History: Nabeel reports overall sleep is improved, but with nightmares. Wrist pain is still an issue. Discussed Gabapentin-declines at this time. Discussed hx of depression mgt, hoarding mgt-has used an organizational system for keeping items, sending items to trash, or giving items away. Discussed his attempts to attend [employer] in [place] and [place] without success during pandemic. Review of his decision to admit to inpatient. Medication Compliance: Yes Side effects from medications: No Attending Groups: Yes Review of Systems Acute medical concerns: No Medical Review of Systems: unchanged Review of Systems Psychiatric: Reports abnormal sleep pattern (nightmares), Reports anxiety, Reports depression, Reports difficulty concentrating, Reports anhedonia and Reports suicidal ideation Mental Status Exam Mental Status Exam Patient Appearance: Fatigued Patient Orientation: Person, Place, Time and Situation Level of Consciousness: Alert Patient Behavior: Appropriate, Talkative, Cooperative and Good Eye Contact Mood Description: Depressed Affect Description: Flat Patient Cognition Impaired: No Ability to Follow Directions: Good Speech Pattern: Spontaneous Speech Memory Description: Intact Hallucinations: None Delusions: Not Present Perceptual Disturbances: Depersonalization and Derealization Thought Process: Rumination Depressive Symptoms: Increased Anxiety, Diff. Making Decisions, Difficulty Sleeping, Loss of Int. in Activity, Feelings of Worthlessness, Hopelessness, Isolating-Friends/Family, Feelings of Guilt, Unhappiness, Increased Fatigue, Thoughts of /Suicide, Low Self Esteem and Difficulty Concentrating Judgement: Fair Diagnostics Vital Signs (24Hr): Vital Signs - 24 hr 12/25/21 21:55 12/26/21 06:00 Temperature 96.6 F L 99.3 F Pulse Rate 74 64 Respiratory Rate 14 Blood Pressure 140/87 H 104/53 L Pulse Oximetry 97 97 BMI result Body Mass Index 21.1 Labs Results: 12/21/21 15:02 12/26/21 13:05 Labs: Laboratory Results - last 48 hr 12/25/21 12/26/21 12/26/21 06:36 06:14 13:05 Creatinine 0.85 Estim Creat Clear Calc 97.6 Estimated GFR > 60 POC Glucose 114 137 H Imaging Radiology Impressions: ITS Impressions Chest X-Ray 12/21/21 16:38 IMPRESSION: Clear lungs. Wrist X-Ray 12/22/21 13:51 IMPRESSION: No acute abnormality of the wrist. If the pain persists consider follow-up studies. Medications Medications Current Medications Acetaminophen (Acetaminophen 325 Mg Tablet) 650 mg PO Q6H PRN PRN Reason: Headache/Pain Mild Scale (1-3) Al Hydroxide/Mg Hydroxide (Magnesium Hydrox/Alum Hydrox 30 Ml Oral.Susp) 30 ml PO Q6H PRN PRN Reason: Heartburn/Nausea Aripiprazole (Aripiprazole 10 Mg Tablet) 10 mg PO DAILY [facility] Last Admin: 12/26/21 09:35 Dose: 10 mg Documented by: Atorvastatin Calcium (Atorvastatin Calcium 10 Mg Tablet) 5 mg PO BEDTIME [facility] Last Admin: 12/25/21 22:08 Dose: 5 mg Documented by: Bupropion HCl (Bupropion Hcl 75 Mg Tablet) 75 mg PO BID [facility] Last Admin: 12/26/21 09:35 Dose: 75 mg Documented by: Gabapentin (Gabapentin 300 Mg Capsule) 600 mg PO TID [facility] Last Admin: 12/26/21 14:15 Dose: 600 mg Documented by: Hydroxyzine HCl (Hydroxyzine Hcl 25 Mg Tablet) 25 mg PO Q6H PRN PRN Reason: Anxiety Last Admin: 12/26/21 01:53 Dose: 25 mg Documented by: Lorazepam (Lorazepam 1 Mg Tablet) 1 mg PO BID PRN PRN Reason: anxiety Last Admin: 12/25/21 18:42 Dose: 1 mg Documented by: Lorazepam (Lorazepam 1 Mg Tablet) 1 mg PO BEDTIME [facility] Last Admin: 12/25/21 22:12 Dose: 1 mg Documented by: Losartan Potassium (Losartan Potassium 25 Mg Tablet) 25 mg PO DAILY [facility]; Protocol Last Admin: 12/26/21 09:35 Dose: 25 mg Documented by: Magnesium Hydroxide (Milk Of Magnesia 30 Ml Oral.Susp) 30 ml PO DAILY PRN PRN Reason: Constipation Last Admin: 12/24/21 02:10 Dose: 30 ml Documented by: Metformin HCl (Metformin Hcl 500 Mg Tablet) 500 mg PO BID [facility] Last Admin: 12/26/21 09:36 Dose: 500 mg Documented by: Mirtazapine (Mirtazapine 7.5 Mg Tablet) 7.5 mg PO BEDTIME [facility] Last Admin: 12/25/21 22:09 Dose: 7.5 mg Documented by: Sertraline HCl (Sertraline Hcl 100 Mg Tablet) 200 mg PO DAILY [facility] Last Admin: 12/26/21 09:35 Dose: 200 mg Documented by: Sodium Chloride (Sodium Chloride 0.65 % Nasal 44 Ml Sprbtl) 1 spray NOSTRIL-B Q1H PRN PRN Reason: dry nares Trazodone HCl (Trazodone Hcl 100 Mg Tablet) 100 mg PO BEDTIME [facility] Last Admin: 12/25/21 22:09 Dose: 100 mg Documented by: Allergies Allergies Allergy/AdvReac Type Severity Reaction Status Date / Time codeine [Codeine] Allergy Mild N/V Verified 12/05/21 16:48 bacitracin Allergy Unknown Unknown Verified 12/05/21 16:48 lisinopril Allergy Unknown Unknown Verified 12/05/21 16:48 Assessment & Plan Assessment & Plan (1) Chronic post-traumatic stress disorder (PTSD): Status: Acute Code(s): F43.12 - Post-traumatic stress disorder, chronic (2) MDD (major depressive disorder), recurrent episode, moderate: Status: Acute Code(s): F33.1 - Major depressive disorder, recurrent, moderate (3) Hoarding disorder: Status: Acute Code(s): F42.3 - Hoarding disorder Plan 66 yo male with PTSD, recurrent MDD, hoarding sx (OCD) with current exacerbation of PTSD sx, conflicts at work and reports of difficulty at home I live in paths at home . Plan: Abilify 5 mg daily Continue other medications 12/23 no change in treatment plan 12/24 made trazodone 50 mg scheduled Made Ativan 1 mg q.h.s. scheduled; patient says he takes every night at home 12/25/21 Insomnia-Increase Trazodone to 100 mg hs Ensure tid Increase Abilify to 10 mg daily 12/26/21 Continue current regime I spent minutes with the patient and/or on the patient floor today, greater than?50% of which was spent counseling/coordinating care. Patient educated on: therapeutic strategies Informed Consent: understands and further education needed Reason for contiued inpatient stay Substantial Risk for: harm to self, inability to function and rapid decompensation
[2021-12-26 16:11] VITALS: BP 110/74; PULSE 94
[2021-12-26] MEDS: traZODone HCL 100 MG TABLET PO (20:08)
[2021-12-26] MEDS: Mirtazapine 7.5 MG TABLET PO (20:08)
[2021-12-26] MEDS: Atorvastatin Calcium 10 MG TABLET 5 MG PO (20:08)
[2021-12-26] MEDS: LORazepam 1 MG TABLET PO (20:08)
[2021-12-27] MEDS: hydrOXYzine HCL 25 MG TABLET PO (01:23)
[2021-12-27 06:00] VITALS: BP 104/69; PULSE 81; RESP 16; TEMP 36.3; O2SAT 98
[2021-12-27 06:22] LABS: Glucose, Whole Blood 104 mg/dL (60-115)
[2021-12-27] MEDS: Sertraline HCL 100 MG TABLET 200 MG PO (08:44)
[2021-12-27] MEDS: buPROPion HCL 75 MG TABLET PO ×2 (08:44→20:03)
[2021-12-27] MEDS: Losartan Potassium 25 MG TABLET PO (08:44)
[2021-12-27] MEDS: metFORMIN HCl 500 MG TABLET PO ×2 (08:44→20:03)
[2021-12-27] MEDS: Gabapentin 300 MG CAPSULE 600 MG PO ×3 (08:44→20:05)
[2021-12-27] MEDS: ARIPiprazole 10 MG TABLET PO (08:44)
[2021-12-27] MEDS: LORazepam 1 MG TABLET PO ×2 (14:47→20:04)
--- NOTE | 2021-12-27 16:38 | HO.PSYCHPN ---
Subjective Subjective Date of Service: 12/27/21 Reason For Visit: Depression,SI Subjective Notes: Conditional Voluntary Healthcare Proxy: No Guardianship: No Medical Problems Affecting Mental Status: No Interim History: Met with pt and Kiran GOODE. Discussed sx of depression, hoarding, OCD, family issues and pt's perspective on family history and effects current day. Continues with anxiety 02/23, nightmares, poor sleep and dreams of feeling lost. Avoiding television programs that may be triggering or activating for him. Discussed some of his traumatic experience/ memories in his past of psychiatric care. Willing to participate in coaching to address hoarding issues at home. Anxiety is increased around this issue as his sister is the truckload owner operator of the home he is living in currently and he believes she will be upset if she sees the condition it is in. Medication Compliance: Yes Side effects from medications: No Attending Groups: Yes Review of Systems Acute medical concerns: No Medical Review of Systems: unchanged Review of Systems Psychiatric: Reports abnormal sleep pattern, Reports anxiety, Reports depression, Reports difficulty concentrating, Reports hopelessness, Reports anhedonia and Reports suicidal ideation Mental Status Exam Mental Status Exam Patient Appearance: Fatigued Patient Orientation: Person, Place, Time and Situation Level of Consciousness: Alert Patient Behavior: Appropriate, Talkative, Cooperative and Good Eye Contact Mood Description: Depressed Affect Description: Flat Patient Cognition Impaired: No Ability to Follow Directions: Good Speech Pattern: Spontaneous Speech Memory Description: Intact Hallucinations: None Delusions: Not Present Perceptual Disturbances: Depersonalization and Derealization Thought Process: Rumination Depressive Symptoms: Increased Anxiety, Diff. Making Decisions, Difficulty Sleeping, Loss of Int. in Activity, Feelings of Worthlessness, Hopelessness, Isolating-Friends/Family, Feelings of Guilt, Unhappiness, Increased Fatigue, Thoughts of /Suicide, Low Self Esteem and Difficulty Concentrating Judgement: Fair Diagnostics Vital Signs (24Hr): Vital Signs - 24 hr 12/27/21 06:00 Temperature 97.3 F Pulse Rate 81 Respiratory Rate 16 Blood Pressure 104/69 Pulse Oximetry 98 BMI result Body Mass Index 21.1 Labs Results: 12/21/21 15:02 12/26/21 13:05 Labs: Laboratory Results - last 48 hr 12/26/21 12/26/21 12/27/21 06:14 13:05 06:10 Creatinine 0.85 Estim Creat Clear Calc 97.6 Estimated GFR > 60 POC Glucose 137 H 104 Imaging Radiology Impressions: ITS Impressions Chest X-Ray 12/21/21 16:38 IMPRESSION: Clear lungs. Wrist X-Ray 12/22/21 13:51 IMPRESSION: No acute abnormality of the wrist. If the pain persists consider follow-up studies. Medications Medications Current Medications Acetaminophen (Acetaminophen 325 Mg Tablet) 650 mg PO Q6H PRN PRN Reason: Headache/Pain Mild Scale (1-3) Al Hydroxide/Mg Hydroxide (Magnesium Hydrox/Alum Hydrox 30 Ml Oral.Susp) 30 ml PO Q6H PRN PRN Reason: Heartburn/Nausea Aripiprazole (Aripiprazole 10 Mg Tablet) 10 mg PO DAILY [facility] Last Admin: 12/27/21 08:44 Dose: 10 mg Documented by: Atorvastatin Calcium (Atorvastatin Calcium 10 Mg Tablet) 5 mg PO BEDTIME [facility] Last Admin: 12/26/21 20:08 Dose: 5 mg Documented by: Bupropion HCl (Bupropion Hcl 75 Mg Tablet) 75 mg PO BID [facility] Last Admin: 12/27/21 08:44 Dose: 75 mg Documented by: Gabapentin (Gabapentin 300 Mg Capsule) 600 mg PO TID [facility] Last Admin: 12/27/21 14:45 Dose: 600 mg Documented by: Hydroxyzine HCl (Hydroxyzine Hcl 25 Mg Tablet) 25 mg PO Q6H PRN PRN Reason: Anxiety Last Admin: 12/27/21 01:23 Dose: 25 mg Documented by: Lorazepam (Lorazepam 1 Mg Tablet) 1 mg PO BID PRN PRN Reason: anxiety Last Admin: 12/27/21 14:47 Dose: 1 mg Documented by: Lorazepam (Lorazepam 1 Mg Tablet) 1 mg PO BEDTIME [facility] Last Admin: 12/26/21 20:08 Dose: 1 mg Documented by: Losartan Potassium (Losartan Potassium 25 Mg Tablet) 25 mg PO DAILY [facility]; Protocol Last Admin: 12/27/21 08:44 Dose: 25 mg Documented by: Magnesium Hydroxide (Milk Of Magnesia 30 Ml Oral.Susp) 30 ml PO DAILY PRN PRN Reason: Constipation Last Admin: 12/24/21 02:10 Dose: 30 ml Documented by: Metformin HCl (Metformin Hcl 500 Mg Tablet) 500 mg PO BID [facility] Last Admin: 12/27/21 08:44 Dose: 500 mg Documented by: Mirtazapine (Mirtazapine 7.5 Mg Tablet) 7.5 mg PO BEDTIME [facility] Last Admin: 12/26/21 20:08 Dose: 7.5 mg Documented by: Sertraline HCl (Sertraline Hcl 100 Mg Tablet) 200 mg PO DAILY [facility] Last Admin: 12/27/21 08:44 Dose: 200 mg Documented by: Sodium Chloride (Sodium Chloride 0.65 % Nasal 44 Ml Sprbtl) 1 spray NOSTRIL-B Q1H PRN PRN Reason: dry nares Trazodone HCl (Trazodone Hcl 100 Mg Tablet) 100 mg PO BEDTIME [facility] Last Admin: 12/26/21 20:08 Dose: 100 mg Documented by: Allergies Allergies Allergy/AdvReac Type Severity Reaction Status Date / Time codeine [Codeine] Allergy Mild N/V Verified 12/05/21 16:48 bacitracin Allergy Unknown Unknown Verified 12/05/21 16:48 lisinopril Allergy Unknown Unknown Verified 12/05/21 16:48 Assessment & Plan Assessment & Plan (1) Chronic post-traumatic stress disorder (PTSD): Status: Acute Code(s): F43.12 - Post-traumatic stress disorder, chronic (2) MDD (major depressive disorder), recurrent episode, moderate: Status: Acute Code(s): F33.1 - Major depressive disorder, recurrent, moderate (3) Hoarding disorder: Status: Acute Code(s): F42.3 - Hoarding disorder Plan 66 yo male with PTSD, recurrent MDD, hoarding sx (OCD) with current exacerbation of PTSD sx, conflicts at work and reports of difficulty at home I live in paths at home . Plan: Abilify 5 mg daily Continue other medications 12/23 no change in treatment plan 12/24 made trazodone 50 mg scheduled Made Ativan 1 mg q.h.s. scheduled; patient says he takes every night at home 12/25/21 Insomnia-Increase Trazodone to 100 mg hs Ensure tid Increase Abilify to 10 mg daily 12/26/21 Continue current regime 12/27/21 Continue current regime Willing to review hoarding resources to assist him in the home. I spent minutes with the patient and/or on the patient floor today, greater than?50% of which was spent counseling/coordinating care. Patient educated on: medication risk/benefits and therapeutic strategies Informed Consent: understands and further education needed Reason for contiued inpatient stay Substantial Risk for: harm to self, inability to function and rapid decompensation
[2021-12-27 18:00] VITALS: BP 124/74; PULSE 69; RESP 16; TEMP 37; O2SAT 97
[2021-12-27] MEDS: traZODone HCL 100 MG TABLET PO (20:03)
[2021-12-27] MEDS: Atorvastatin Calcium 10 MG TABLET 5 MG PO (20:04)
[2021-12-27] MEDS: Mirtazapine 7.5 MG TABLET PO (20:04)
[2021-12-28] MEDS: hydrOXYzine HCL 25 MG TABLET PO (01:54)
[2021-12-28 06:21] LABS: Glucose, Whole Blood 95 mg/dL (60-115)
[2021-12-28] MEDS: Sertraline HCL 100 MG TABLET 200 MG PO (09:34)
[2021-12-28] MEDS: metFORMIN HCl 500 MG TABLET PO ×2 (09:34→20:01)
[2021-12-28] MEDS: buPROPion HCL 75 MG TABLET PO ×2 (09:34→20:01)
[2021-12-28] MEDS: Losartan Potassium 25 MG TABLET PO (09:34)
[2021-12-28] MEDS: ARIPiprazole 10 MG TABLET PO (09:34)
[2021-12-28] MEDS: Gabapentin 300 MG CAPSULE 600 MG PO ×3 (09:34→20:02)
[2021-12-28 09:36] VITALS: BP 128/60; PULSE 70; RESP 14; TEMP 36.2; O2SAT 96
[2021-12-28 12:43] LABS: Glucose, Whole Blood 104 mg/dL (60-115)
[2021-12-28] MEDS: Sodium Chloride 0.65 % Nasal 44 ML SPRBTL 1 SPRAY NOSTRIL-B ×2 (15:22→18:46)
--- NOTE | 2021-12-28 16:26 | HO.PSYCHPN ---
Subjective Subjective Date of Service: 12/28/21 Reason For Visit: Depression,SI Subjective Notes: Conditional Voluntary Healthcare Proxy: No Guardianship: No Medical Problems Affecting Mental Status: No Interim History: Review of medications and purpose. Reviewed use of stimulants (Methylphenidate) and efficacy. Will trial again. Discussed feeling judged by the family for his symptoms, with associated shame and guilt. Discussed hoarding and is willing to pursue more active interventions for assistance Medication Compliance: Yes Side effects from medications: No Attending Groups: Yes Review of Systems Acute medical concerns: No Medical Review of Systems: unchanged Review of Systems Psychiatric: Reports abnormal sleep pattern, Reports anxiety, Reports depression, Reports difficulty concentrating, Reports hopelessness, Reports anhedonia and Reports suicidal ideation Mental Status Exam Mental Status Exam Patient Appearance: Fatigued Patient Orientation: Person, Place, Time and Situation Level of Consciousness: Alert Patient Behavior: Appropriate, Talkative, Cooperative and Good Eye Contact Mood Description: Depressed Affect Description: Flat Patient Cognition Impaired: No Ability to Follow Directions: Good Speech Pattern: Spontaneous Speech Memory Description: Intact Hallucinations: None Delusions: Not Present Perceptual Disturbances: Depersonalization and Derealization Thought Process: Rumination Depressive Symptoms: Increased Anxiety, Diff. Making Decisions, Difficulty Sleeping, Loss of Int. in Activity, Feelings of Worthlessness, Hopelessness, Isolating-Friends/Family, Feelings of Guilt, Unhappiness, Increased Fatigue, Thoughts of /Suicide, Low Self Esteem and Difficulty Concentrating Judgement: Fair Diagnostics Vital Signs (24Hr): Vital Signs - 24 hr 12/27/21 18:00 12/28/21 09:36 Temperature 98.6 F 97.2 F Pulse Rate 69 70 Respiratory Rate 16 14 Blood Pressure 124/74 128/60 Pulse Oximetry 97 96 BMI result Body Mass Index 21.1 Labs Results: 12/21/21 15:02 12/26/21 13:05 Labs: Laboratory Results - last 48 hr 12/27/21 12/28/21 12/28/21 06:10 05:50 12:37 POC Glucose 104 95 104 Imaging Radiology Impressions: ITS Impressions Chest X-Ray 12/21/21 16:38 IMPRESSION: Clear lungs. Wrist X-Ray 12/22/21 13:51 IMPRESSION: No acute abnormality of the wrist. If the pain persists consider follow-up studies. Medications Medications Current Medications Acetaminophen (Acetaminophen 325 Mg Tablet) 650 mg PO Q6H PRN PRN Reason: Headache/Pain Mild Scale (1-3) Al Hydroxide/Mg Hydroxide (Magnesium Hydrox/Alum Hydrox 30 Ml Oral.Susp) 30 ml PO Q6H PRN PRN Reason: Heartburn/Nausea Atorvastatin Calcium (Atorvastatin Calcium 10 Mg Tablet) 5 mg PO BEDTIME [facility] Last Admin: 12/27/21 20:04 Dose: 5 mg Documented by: Bupropion HCl (Bupropion Hcl 75 Mg Tablet) 75 mg PO BID [facility] Last Admin: 12/28/21 09:34 Dose: 75 mg Documented by: Gabapentin (Gabapentin 300 Mg Capsule) 600 mg PO TID [facility] Last Admin: 12/28/21 15:20 Dose: 600 mg Documented by: Hydroxyzine HCl (Hydroxyzine Hcl 25 Mg Tablet) 25 mg PO Q6H PRN PRN Reason: Anxiety Last Admin: 12/28/21 01:54 Dose: 25 mg Documented by: Lorazepam (Lorazepam 1 Mg Tablet) 1 mg PO BID PRN PRN Reason: anxiety Last Admin: 12/27/21 14:47 Dose: 1 mg Documented by: Lorazepam (Lorazepam 1 Mg Tablet) 1 mg PO BEDTIME [facility] Last Admin: 12/27/21 20:04 Dose: 1 mg Documented by: Losartan Potassium (Losartan Potassium 25 Mg Tablet) 25 mg PO DAILY [facility]; Protocol Last Admin: 12/28/21 09:34 Dose: 25 mg Documented by: Magnesium Hydroxide (Milk Of Magnesia 30 Ml Oral.Susp) 30 ml PO DAILY PRN PRN Reason: Constipation Last Admin: 12/24/21 02:10 Dose: 30 ml Documented by: Metformin HCl (Metformin Hcl 500 Mg Tablet) 500 mg PO BID [facility] Last Admin: 12/28/21 09:34 Dose: 500 mg Documented by: Methylphenidate HCl (Methylphenidate Hcl 10 Mg Tablet) 10 mg PO DAILY@0700 [facility] Mirtazapine (Mirtazapine 7.5 Mg Tablet) 7.5 mg PO BEDTIME [facility] Last Admin: 12/27/21 20:04 Dose: 7.5 mg Documented by: Sertraline HCl (Sertraline Hcl 100 Mg Tablet) 200 mg PO DAILY [facility] Last Admin: 12/28/21 09:34 Dose: 200 mg Documented by: Sodium Chloride (Sodium Chloride 0.65 % Nasal 44 Ml Sprbtl) 1 spray NOSTRIL-B Q1H PRN PRN Reason: dry nares Last Admin: 12/28/21 15:22 Dose: 1 spray Documented by: Trazodone HCl (Trazodone Hcl 100 Mg Tablet) 100 mg PO BEDTIME [facility] Last Admin: 12/27/21 20:03 Dose: 100 mg Documented by: Allergies Allergies Allergy/AdvReac Type Severity Reaction Status Date / Time codeine [Codeine] Allergy Mild N/V Verified 12/05/21 16:48 bacitracin Allergy Unknown Rash Verified 12/28/21 14:17 lisinopril Allergy Unknown Rash Verified 12/28/21 14:17 Assessment & Plan Assessment & Plan (1) Chronic post-traumatic stress disorder (PTSD): Status: Acute Code(s): F43.12 - Post-traumatic stress disorder, chronic (2) MDD (major depressive disorder), recurrent episode, moderate: Status: Acute Code(s): F33.1 - Major depressive disorder, recurrent, moderate (3) Hoarding disorder: Status: Acute Code(s): F42.3 - Hoarding disorder Plan 66 yo male with PTSD, recurrent MDD, hoarding sx (OCD) with current exacerbation of PTSD sx, conflicts at work and reports of difficulty at home I live [place] home . Plan: Abilify 5 mg daily Continue other medications 12/23 no change in treatment plan 12/24 made trazodone 50 mg scheduled Made Ativan 1 mg q.h.s. scheduled; patient says he takes every night at home 12/25/21 Insomnia-Increase Trazodone to 100 mg hs Ensure tid Increase Abilify to 10 mg daily 12/26/21 Continue current regime 12/27/21 Continue current regime Willing to review hoarding resources to assist him in the home. 12/28/21 Discontinue Abilify-tolerated with no effect of augmentation Methylphenidate 10 mg a.m.. I spent minutes with the patient and/or on the patient floor today, greater than?50% of which was spent counseling/coordinating care. Patient educated on: medication risk/benefits and therapeutic strategies Informed Consent: understands and further education needed Reason for contiued inpatient stay Substantial Risk for: harm to self, inability to function and rapid decompensation
[2021-12-28 16:44] VITALS: BP 124/75; PULSE 79; RESP 20; TEMP 36.4; O2SAT 96
[2021-12-28] MEDS: LORazepam 1 MG TABLET PO ×2 (18:45→20:02)
[2021-12-28] MEDS: traZODone HCL 100 MG TABLET PO (20:01)
[2021-12-28] MEDS: Atorvastatin Calcium 10 MG TABLET 5 MG PO (20:02)
[2021-12-28] MEDS: Mirtazapine 7.5 MG TABLET PO (20:02)
[2021-12-29 06:43] LABS: Glucose, Whole Blood 119 mg/dL (60-115)
[2021-12-29 08:00] VITALS: BP 125/74; PULSE 62; TEMP 36.1
[2021-12-29] MEDS: Losartan Potassium 25 MG TABLET PO (08:57)
[2021-12-29] MEDS: Sertraline HCL 100 MG TABLET 200 MG PO (08:57)
[2021-12-29] MEDS: metFORMIN HCl 500 MG TABLET PO ×2 (08:57→21:42)
[2021-12-29] MEDS: buPROPion HCL 75 MG TABLET PO ×2 (08:57→21:42)
[2021-12-29] MEDS: Gabapentin 300 MG CAPSULE 600 MG PO ×3 (08:57→21:42)
[2021-12-29] MEDS: Methylphenidate HCl 10 MG TABLET PO (08:58)
[2021-12-29] MEDS: LORazepam 1 MG TABLET PO ×2 (12:17→21:42)
[2021-12-29] MEDS: Sodium Chloride 0.65 % Nasal 44 ML SPRBTL 1 SPRAY NOSTRIL-B (12:17)
--- NOTE | 2021-12-29 18:08 | P.PNPSI_ITS ---
Subjective Subjective Date of Service: 12/29/21 Reason For Visit: Depression,SI Subjective Notes: Conditional Voluntary Healthcare Proxy: No Guardianship: No Medical Problems Affecting Mental Status: No Interim History: Tolerating methylphenidate. FMLA paperwork completed. Pt to review. Pt attending group and participating. Engaged in milieu. Medication Compliance: Yes Side effects from medications: No Attending Groups: Yes Review of Systems Acute medical concerns: No Medical Review of Systems: unchanged Review of Systems Psychiatric: Reports abnormal sleep pattern, Reports anxiety, Reports depression, Reports difficulty concentrating, Reports hopelessness, Reports anhedonia and Reports suicidal ideation Mental Status Exam Mental Status Exam Patient Appearance: Fatigued Patient Orientation: Person, Place, Time and Situation Level of Consciousness: Alert Patient Behavior: Appropriate, Talkative, Cooperative and Good Eye Contact Mood Description: Depressed Affect Description: Flat Patient Cognition Impaired: No Ability to Follow Directions: Good Speech Pattern: Spontaneous Speech Memory Description: Intact Hallucinations: None Delusions: Not Present Perceptual Disturbances: Depersonalization and Derealization Thought Process: Rumination Depressive Symptoms: Increased Anxiety, Diff. Making Decisions, Difficulty Sleeping, Loss of Int. in Activity, Feelings of Worthlessness, Hopelessness, Isolating-Friends/Family, Feelings of Guilt, Unhappiness, Increased Fatigue, Thoughts of /Suicide, Low Self Esteem and Difficulty Concentrating Judgement: Fair Diagnostics Vital Signs (24Hr): Vital Signs - 24 hr 12/29/21 08:00 Temperature 96.9 F Pulse Rate 62 Blood Pressure 125/74 BMI result Body Mass Index 21.1 Labs Results: 12/21/21 15:02 12/26/21 13:05 Labs: Laboratory Results - last 48 hr 12/28/21 12/28/21 12/29/21 05:50 12:37 06:36 POC Glucose 95 104 119 H Imaging Radiology Impressions: ITS Impressions Chest X-Ray 12/21/21 16:38 IMPRESSION: Clear lungs. Wrist X-Ray 12/22/21 13:51 IMPRESSION: No acute abnormality of the wrist. If the pain persists consider follow-up studies. Medications Medications Current Medications Acetaminophen (Acetaminophen 325 Mg Tablet) 650 mg PO Q6H PRN PRN Reason: Headache/Pain Mild Scale (1-3) Al Hydroxide/Mg Hydroxide (Magnesium Hydrox/Alum Hydrox 30 Ml Oral.Susp) 30 ml PO Q6H PRN PRN Reason: Heartburn/Nausea Atorvastatin Calcium (Atorvastatin Calcium 10 Mg Tablet) 5 mg PO BEDTIME [facility] Last Admin: 12/28/21 20:02 Dose: 5 mg Documented by: Bupropion HCl (Bupropion Hcl 75 Mg Tablet) 75 mg PO BID [facility] Last Admin: 12/29/21 08:57 Dose: 75 mg Documented by: Gabapentin (Gabapentin 300 Mg Capsule) 600 mg PO TID [facility] Last Admin: 12/29/21 15:41 Dose: 600 mg Documented by: Hydroxyzine HCl (Hydroxyzine Hcl 25 Mg Tablet) 25 mg PO Q6H PRN PRN Reason: Anxiety Last Admin: 12/28/21 01:54 Dose: 25 mg Documented by: Lorazepam (Lorazepam 1 Mg Tablet) 1 mg PO BID PRN PRN Reason: anxiety Last Admin: 12/29/21 12:17 Dose: 1 mg Documented by: Lorazepam (Lorazepam 1 Mg Tablet) 1 mg PO BEDTIME [facility] Last Admin: 12/28/21 20:02 Dose: 1 mg Documented by: Losartan Potassium (Losartan Potassium 25 Mg Tablet) 25 mg PO DAILY [facility]; Protocol Last Admin: 12/29/21 08:57 Dose: 25 mg Documented by: Magnesium Hydroxide (Milk Of Magnesia 30 Ml Oral.Susp) 30 ml PO DAILY PRN PRN Reason: Constipation Last Admin: 12/24/21 02:10 Dose: 30 ml Documented by: Metformin HCl (Metformin Hcl 500 Mg Tablet) 500 mg PO BID [facility] Last Admin: 12/29/21 08:57 Dose: 500 mg Documented by: Methylphenidate HCl (Methylphenidate Hcl 10 Mg Tablet) 10 mg PO DAILY@0700 [facility] Last Admin: 12/29/21 08:58 Dose: 10 mg Documented by: Mirtazapine (Mirtazapine 7.5 Mg Tablet) 7.5 mg PO BEDTIME [facility] Last Admin: 12/28/21 20:02 Dose: 7.5 mg Documented by: Sertraline HCl (Sertraline Hcl 100 Mg Tablet) 200 mg PO DAILY [facility] Last Admin: 12/29/21 08:57 Dose: 200 mg Documented by: Sodium Chloride (Sodium Chloride 0.65 % Nasal 44 Ml Sprbtl) 1 spray NOSTRIL-B Q1H PRN PRN Reason: dry nares Last Admin: 12/29/21 12:17 Dose: 1 spray Documented by: Trazodone HCl (Trazodone Hcl 100 Mg Tablet) 100 mg PO BEDTIME [facility] Last Admin: 12/28/21 20:01 Dose: 100 mg Documented by: Allergies Allergies Allergy/AdvReac Type Severity Reaction Status Date / Time codeine [Codeine] Allergy Mild N/V Verified 12/05/21 16:48 bacitracin Allergy Unknown Rash Verified 12/28/21 14:17 lisinopril Allergy Unknown Rash Verified 12/28/21 14:17 Assessment & Plan Assessment & Plan (1) Chronic post-traumatic stress disorder (PTSD): Status: Acute Code(s): F43.12 - Post-traumatic stress disorder, chronic (2) MDD (major depressive disorder), recurrent episode, moderate: Status: Acute Code(s): F33.1 - Major depressive disorder, recurrent, moderate (3) Hoarding disorder: Status: Acute Code(s): F42.3 - Hoarding disorder Plan 66 yo male with PTSD, recurrent MDD, hoarding sx (OCD) with current exacerbation of PTSD sx, conflicts at work and reports of difficulty at home I live [place] at home . Plan: Abilify 5 mg daily Continue other medications 12/23 no change in treatment plan 12/24 made trazodone 50 mg scheduled Made Ativan 1 mg q.h.s. scheduled; patient says he takes every night at home 12/25/21 Insomnia-Increase Trazodone to 100 mg hs Ensure tid Increase Abilify to 10 mg daily 12/26/21 Continue current regime 12/27/21 Continue current regime Willing to review hoarding resources to assist him in the home. 12/28/21 Discontinue Abilify-tolerated with no effect of augmentation Methylphenidate 10 mg a.m.. 12/29/21 Continue current plan. I spent minutes with the patient and/or on the patient floor today, greater than?50% of which was spent counseling/coordinating care. Patient educated on: medication risk/benefits Informed Consent: understands Reason for contiued inpatient stay Substantial Risk for: harm to self, inability to function and rapid decompensation
[2021-12-29 20:28] VITALS: BP 142/91; PULSE 95; RESP 18; TEMP 36.3; O2SAT 98
[2021-12-29] MEDS: traZODone HCL 100 MG TABLET PO (21:42)
[2021-12-29] MEDS: Atorvastatin Calcium 10 MG TABLET 5 MG PO (21:42)
[2021-12-29] MEDS: Mirtazapine 7.5 MG TABLET PO (21:42)
[2021-12-29 21:50] LABS: Glucose, Whole Blood 89 mg/dL (60-115)
[2021-12-29] MEDS: Acetaminophen 325 MG TABLET 650 MG PO (21:51)
[2021-12-30 06:45] LABS: Glucose, Whole Blood 97 mg/dL (60-115)
[2021-12-30 08:23] VITALS: BP 114/72; PULSE 68; RESP 16; TEMP 36.5; O2SAT 97
[2021-12-30] MEDS: Sertraline HCL 100 MG TABLET 200 MG PO (08:44)
[2021-12-30] MEDS: metFORMIN HCl 500 MG TABLET PO ×2 (08:44→20:55)
[2021-12-30] MEDS: Losartan Potassium 25 MG TABLET PO (08:45)
[2021-12-30] MEDS: Gabapentin 300 MG CAPSULE 600 MG PO ×3 (08:45→20:56)
[2021-12-30] MEDS: buPROPion HCL 75 MG TABLET PO ×2 (08:45→20:54)
[2021-12-30] MEDS: Methylphenidate HCl 10 MG TABLET PO (08:45)
[2021-12-30] MEDS: Acetaminophen 325 MG TABLET 650 MG PO (11:31)
[2021-12-30] MEDS: LORazepam 1 MG TABLET PO ×2 (11:31→20:56)
[2021-12-30] MEDS: Milk of Magnesia 30 ML ORAL.SUSP PO (14:34)
[2021-12-30 18:00] VITALS: BP 130/61; PULSE 74; RESP 16; TEMP 36.6; O2SAT 96
--- NOTE | 2021-12-30 18:36 | P.PNPSI_ITS ---
Subjective Subjective Date of Service: 12/30/21 Reason For Visit: Depression,SI Interim History: Participating in milieu and groups, [facility] paperwork completed and faxed. Reports back pain, foot pain (neuropathy). Medication review with pt. Discussed sx of confusion [employer]. Medication Compliance: Yes Side effects from medications: No Attending Groups: Yes Review of Systems Acute medical concerns: No Medical Review of Systems: unchanged Mental Status Exam Mental Status Exam Patient Appearance: Fatigued Patient Orientation: Person, Place, Time and Situation Level of Consciousness: Alert Patient Behavior: Appropriate, Talkative, Cooperative and Good Eye Contact Mood Description: Depressed Affect Description: Flat Patient Cognition Impaired: No Ability to Follow Directions: Good Speech Pattern: Spontaneous Speech Memory Description: Intact Hallucinations: None Delusions: Not Present Perceptual Disturbances: Depersonalization and Derealization Thought Process: Rumination Depressive Symptoms: Increased Anxiety, Diff. Making Decisions, Difficulty Sleeping, Loss of Int. in Activity, Feelings of Worthlessness, Hopelessness, Isolating-Friends/Family, Feelings of Guilt, Unhappiness, Increased Fatigue, Thoughts of /Suicide, Low Self Esteem and Difficulty Concentrating Judgement: Fair Diagnostics Vital Signs (24Hr): Vital Signs - 24 hr 12/29/21 20:28 12/30/21 08:23 Temperature 97.4 F 97.7 F Pulse Rate 95 68 Respiratory Rate 18 16 Blood Pressure 142/91 H 114/72 Pulse Oximetry 98 97 BMI result Body Mass Index 21.1 Labs Results: 12/21/21 15:02 12/26/21 13:05 Labs: Laboratory Results - last 48 hr 12/29/21 12/29/21 12/30/21 06:36 21:41 06:31 POC Glucose 119 H 89 97 Imaging Radiology Impressions: ITS Impressions Chest X-Ray 12/21/21 16:38 IMPRESSION: Clear lungs. Wrist X-Ray 12/22/21 13:51 IMPRESSION: No acute abnormality of the wrist. If the pain persists consider follow-up studies. Medications Medications Current Medications Acetaminophen (Acetaminophen 325 Mg Tablet) 650 mg PO Q6H PRN PRN Reason: Headache/Pain Mild Scale (1-3) Last Admin: 12/30/21 11:31 Dose: 650 mg Documented by: Al Hydroxide/Mg Hydroxide (Magnesium Hydrox/Alum Hydrox 30 Ml Oral.Susp) 30 ml PO Q6H PRN PRN Reason: Heartburn/Nausea Atorvastatin Calcium (Atorvastatin Calcium 10 Mg Tablet) 5 mg PO BEDTIME [facility] Last Admin: 12/29/21 21:42 Dose: 5 mg Documented by: Bupropion HCl (Bupropion Hcl 75 Mg Tablet) 75 mg PO BID [facility] Last Admin: 12/30/21 08:45 Dose: 75 mg Documented by: Gabapentin (Gabapentin 300 Mg Capsule) 600 mg PO TID [facility] Last Admin: 12/30/21 14:34 Dose: 600 mg Documented by: Hydroxyzine HCl (Hydroxyzine Hcl 25 Mg Tablet) 25 mg PO Q6H PRN PRN Reason: Anxiety Last Admin: 12/28/21 01:54 Dose: 25 mg Documented by: Lorazepam (Lorazepam 1 Mg Tablet) 1 mg PO BID PRN PRN Reason: anxiety Last Admin: 12/30/21 11:31 Dose: 1 mg Documented by: Lorazepam (Lorazepam 1 Mg Tablet) 1 mg PO BEDTIME [facility] Last Admin: 12/29/21 21:42 Dose: 1 mg Documented by: Losartan Potassium (Losartan Potassium 25 Mg Tablet) 25 mg PO DAILY [facility]; Protocol Last Admin: 12/30/21 08:45 Dose: 25 mg Documented by: Magnesium Hydroxide (Milk Of Magnesia 30 Ml Oral.Susp) 30 ml PO DAILY PRN PRN Reason: Constipation Last Admin: 12/30/21 14:34 Dose: 30 ml Documented by: Metformin HCl (Metformin Hcl 500 Mg Tablet) 500 mg PO BID [facility] Last Admin: 12/30/21 08:44 Dose: 500 mg Documented by: Methylphenidate HCl (Methylphenidate Hcl 10 Mg Tablet) 10 mg PO DAILY@0700 [facility] Last Admin: 12/30/21 08:45 Dose: 10 mg Documented by: Mirtazapine (Mirtazapine 7.5 Mg Tablet) 7.5 mg PO BEDTIME [facility] Last Admin: 12/29/21 21:42 Dose: 7.5 mg Documented by: Sertraline HCl (Sertraline Hcl 100 Mg Tablet) 200 mg PO DAILY [facility] Last Admin: 12/30/21 08:44 Dose: 200 mg Documented by: Sodium Chloride (Sodium Chloride 0.65 % Nasal 44 Ml Sprbtl) 1 spray NOSTRIL-B Q1H PRN PRN Reason: dry nares Last Admin: 12/29/21 12:17 Dose: 1 spray Documented by: Trazodone HCl (Trazodone Hcl 100 Mg Tablet) 100 mg PO BEDTIME [facility] Last Admin: 12/29/21 21:42 Dose: 100 mg Documented by: Allergies Allergies Allergy/AdvReac Type Severity Reaction Status Date / Time codeine [Codeine] Allergy Mild N/V Verified 12/05/21 16:48 bacitracin Allergy Unknown Rash Verified 12/28/21 14:17 lisinopril Allergy Unknown Rash Verified 12/28/21 14:17 Assessment & Plan Assessment & Plan (1) Chronic post-traumatic stress disorder (PTSD): Status: Acute Code(s): F43.12 - Post-traumatic stress disorder, chronic (2) MDD (major depressive disorder), recurrent episode, moderate: Status: Acute Code(s): F33.1 - Major depressive disorder, recurrent, moderate (3) Hoarding disorder: Status: Acute Code(s): F42.3 - Hoarding disorder Plan 66 yo male with PTSD, recurrent MDD, hoarding sx (OCD) with current exacerbation of PTSD sx, conflicts at work and reports of difficulty at home I live [place] at home . Plan: Abilify 5 mg daily Continue other medications 12/23 no change in treatment plan 12/24 made trazodone 50 mg scheduled Made Ativan 1 mg q.h.s. scheduled; patient says he takes every night at home 12/25/21 Insomnia-Increase Trazodone to 100 mg hs Ensure tid Increase Abilify to 10 mg daily 12/26/21 Continue current regime 12/27/21 Continue current regime Willing to review hoarding resources to assist him in the home. 12/28/21 Discontinue Abilify-tolerated with no effect of augmentation Methylphenidate 10 mg a.m.. 12/29/21 Continue current plan. 12/30/21 Continue current plan. I spent minutes with the patient and/or on the patient floor today, greater than?50% of which was spent counseling/coordinating care. Patient educated on: medication risk/benefits, therapeutic strategies and other Informed Consent: understands and further education needed Reason for contiued inpatient stay Substantial Risk for: harm to self, inability to function and rapid decompensation
[2021-12-30] MEDS: traZODone HCL 100 MG TABLET PO (20:54)
[2021-12-30] MEDS: Atorvastatin Calcium 10 MG TABLET 5 MG PO (20:55)
[2021-12-30] MEDS: Mirtazapine 7.5 MG TABLET PO (20:57)
[2021-12-31] MEDS: hydrOXYzine HCL 25 MG TABLET PO (01:32)
[2021-12-31 06:48] LABS: Glucose, Whole Blood 113 mg/dL (60-115)
[2021-12-31] MEDS: Losartan Potassium 25 MG TABLET PO (10:10)
[2021-12-31] MEDS: Gabapentin 300 MG CAPSULE 600 MG PO ×3 (10:10→22:02)
[2021-12-31] MEDS: Methylphenidate HCl 10 MG TABLET PO (10:10)
[2021-12-31] MEDS: metFORMIN HCl 500 MG TABLET PO ×2 (10:11→22:02)
[2021-12-31] MEDS: Sertraline HCL 100 MG TABLET 200 MG PO (10:11)
[2021-12-31] MEDS: buPROPion HCL 75 MG TABLET PO ×2 (10:11→22:02)
[2021-12-31 10:21] VITALS: BP 113/62; PULSE 74; RESP 16; TEMP 35.9; O2SAT 99
[2021-12-31] MEDS: LORazepam 1 MG TABLET PO ×2 (12:29→22:02)
[2021-12-31] MEDS: Acetaminophen 325 MG TABLET 650 MG PO (12:29)
[2021-12-31] MEDS: Sodium Chloride 0.65 % Nasal 44 ML SPRBTL 1 SPRAY NOSTRIL-B ×2 (12:45→22:05)
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
[2021-12-31] MEDS: Atorvastatin Calcium 10 MG TABLET 5 MG PO (22:02)
[2021-12-31] MEDS: Mirtazapine 7.5 MG TABLET PO (22:03)
[2021-12-31] MEDS: traZODone HCL 100 MG TABLET PO (22:03)
[2022-01-01] MEDS: LORazepam 1 MG TABLET PO ×2 (03:19→21:00)
[2022-01-01] MEDS: Methylphenidate HCl 5 MG TABLET 15 MG PO (06:39)
[2022-01-01 06:49] LABS: Glucose, Whole Blood 114 mg/dL (60-115)
[2022-01-01 08:00] VITALS: BP 121/68; PULSE 76; TEMP 36.2; O2SAT 98
[2022-01-01] MEDS: Gabapentin 300 MG CAPSULE 600 MG PO ×3 (09:46→21:00)
[2022-01-01] MEDS: Losartan Potassium 25 MG TABLET PO (09:47)
[2022-01-01] MEDS: Sertraline HCL 100 MG TABLET 200 MG PO (09:47)
[2022-01-01] MEDS: buPROPion HCL 75 MG TABLET PO ×2 (09:47→21:01)
[2022-01-01] MEDS: metFORMIN HCl 500 MG TABLET PO ×2 (09:47→21:00)
[2022-01-01 19:00] VITALS: BP 122/67; PULSE 67; TEMP 36.2; O2SAT 100
--- NOTE | 2022-01-01 19:28 | P.PNPSI_ITS ---
Subjective Subjective Date of Service: 01/01/22 Reason For Visit: Depression,SI Interim History: Pt reports his hearing aid has broken and he requested assistance in repair. Will contact [facility] [place] (they are on holiday today). Continues to struggle with depressive sx. Discussed discharge. Pt not feeling ready at all. Working on full milieu participation to assist with sx mgt. Tolerating increase in Methylphenidate Medication Compliance: Yes Side effects from medications: No Attending Groups: Yes Review of Systems Acute medical concerns: No Medical Review of Systems: unchanged Mental Status Exam Mental Status Exam Patient Appearance: Fatigued Patient Orientation: Person, Place, Time and Situation Level of Consciousness: Alert Patient Behavior: Appropriate, Talkative, Cooperative and Good Eye Contact Mood Description: Depressed Affect Description: Flat Patient Cognition Impaired: No Ability to Follow Directions: Good Speech Pattern: Spontaneous Speech Memory Description: Intact Hallucinations: None Delusions: Not Present Perceptual Disturbances: Depersonalization and Derealization Thought Process: Rumination Depressive Symptoms: Increased Anxiety, Diff. Making Decisions, Difficulty Sl eeping, Loss of Int. in Activity, Feelings of Worthlessness, Hopelessness, Isolating-Friends/Family, Feelings of Guilt, Unhappiness, Increased Fatigue, Thoughts of /Suicide, Low Self Esteem and Difficulty Concentrating Judgement: Fair Diagnostics Vital Signs (24Hr): Vital Signs - 24 hr 01/01/22 08:00 Temperature 97.1 F Pulse Rate 76 Blood Pressure 121/68 Pulse Oximetry 98 BMI result Body Mass Index 21.1 Labs Results: 12/21/21 15:02 12/26/21 13:05 Labs: Laboratory Results - last 48 hr 12/31/21 01/01/22 06:36 06:43 POC Glucose 113 114 Imaging Radiology Impressions: ITS Impressions Chest X-Ray 12/21/21 16:38 IMPRESSION: Clear lungs. Wrist X-Ray 12/22/21 13:51 IMPRESSION: No acute abnormality of the wrist. If the pain persists consider follow-up studies. Medications Medications Current Medications Acetaminophen (Acetaminophen 325 Mg Tablet) 650 mg PO Q6H PRN PRN Reason: Headache/Pain Mild Scale (1-3) Last Admin: 12/31/21 12:29 Dose: 650 mg Documented by: Al Hydroxide/Mg Hydroxide (Magnesium Hydrox/Alum Hydrox 30 Ml Oral.Susp) 30 ml PO Q6H PRN PRN Reason: Heartburn/Nausea Atorvastatin Calcium (Atorvastatin Calcium 10 Mg Tablet) 5 mg PO BEDTIME [facility] Last Admin: 12/31/21 22:02 Dose: 5 mg Documented by: Bupropion HCl (Bupropion Hcl 75 Mg Tablet) 75 mg PO BID [facility] Last Admin: 01/01/22 09:47 Dose: 75 mg Documented by: Gabapentin (Gabapentin 300 Mg Capsule) 600 mg PO TID [facility] Last Admin: 01/01/22 15:13 Dose: 600 mg Documented by: Hydroxyzine HCl (Hydroxyzine Hcl 25 Mg Tablet) 25 mg PO Q6H PRN PRN Reason: Anxiety Last Admin: 12/31/21 01:32 Dose: 25 mg Documented by: Lorazepam (Lorazepam 1 Mg Tablet) 1 mg PO BID PRN PRN Reason: anxiety Last Admin: 01/01/22 03:19 Dose: 1 mg Documented by: Lorazepam (Lorazepam 1 Mg Tablet) 1 mg PO BEDTIME [facility] Last Admin: 12/31/21 22:02 Dose: 1 mg Documented by: Losartan Potassium (Losartan Potassium 25 Mg Tablet) 25 mg PO DAILY [facility]; Protocol Last Admin: 01/01/22 09:47 Dose: 25 mg Documented by: Magnesium Hydroxide (Milk Of Magnesia 30 Ml Oral.Susp) 30 ml PO DAILY PRN PRN Reason: Constipation Last Admin: 12/30/21 14:34 Dose: 30 ml Documented by: Metformin HCl (Metformin Hcl 500 Mg Tablet) 500 mg PO BID [facility] Last Admin: 01/01/22 09:47 Dose: 500 mg Documented by: Methylphenidate HCl (Methylphenidate Hcl 5 Mg Tablet) 15 mg PO DAILY@0700 [facility] Last Admin: 01/01/22 06:39 Dose: 15 mg Documented by: Mirtazapine (Mirtazapine 7.5 Mg Tablet) 7.5 mg PO BEDTIME [facility] Last Admin: 12/31/21 22:03 Dose: 7.5 mg Documented by: Sertraline HCl (Sertraline Hcl 100 Mg Tablet) 200 mg PO DAILY [facility] Last Admin: 01/01/22 09:47 Dose: 200 mg Documented by: Sodium Chloride (Sodium Chloride 0.65 % Nasal 44 Ml Sprbtl) 1 spray NOSTRIL-B Q1H PRN PRN Reason: dry nares Last Admin: 12/31/21 22:05 Dose: 1 spray Documented by: Trazodone HCl (Trazodone Hcl 100 Mg Tablet) 100 mg PO BEDTIME [facility] Last Admin: 12/31/21 22:03 Dose: 100 mg Documented by: Allergies Allergies Allergy/AdvReac Type Severity Reaction Status Date / Time codeine [Codeine] Allergy Mild N/V Verified 12/05/21 16:48 bacitracin Allergy Unknown Rash Verified 12/28/21 14:17 lisinopril Allergy Unknown Rash Verified 12/28/21 14:17 Assessment & Plan Assessment & Plan (1) Chronic post-traumatic stress disorder (PTSD): Status: Acute Code(s): F43.12 - Post-traumatic stress disorder, chronic (2) MDD (major depressive disorder), recurrent episode, moderate: Status: Acute Code(s): F33.1 - Major depressive disorder, recurrent, moderate (3) Hoarding disorder: Status: Acute Code(s): F42.3 - Hoarding disorder Plan 66 yo male with PTSD, recurrent MDD, hoarding sx (OCD) with current exacerbation of PTSD sx, conflicts at work and reports of difficulty at home I live [place] at home . Plan: Abilify 5 mg daily Continue other medications 12/23 no change in treatment plan 12/24 made trazodone 50 mg scheduled Made Ativan 1 mg q.h.s. scheduled; patient says he takes every night at home 12/25/21 Insomnia-Increase Trazodone to 100 mg hs Ensure tid Increase Abilify to 10 mg daily 12/26/21 Continue current regime 12/27/21 Continue current regime Willing to review hoarding resources to assist him in the home. 12/28/21 Discontinue Abilify-tolerated with no effect of augmentation Methylphenidate 10 mg a.m.. 12/29/21 Continue current plan. 12/30/21 Continue current plan. 12/31/21- Increase Methylphenidate to 15 mg a.m. 01/01/22- Continue current regime. I spent minutes with the patient and/or on the patient floor today, greater than?50% of which was spent counseling/coordinating care. Patient educated on: medication risk/benefits and therapeutic strategies Informed Consent: further education needed Reason for contiued inpatient stay Substantial Risk for: harm to self, inability to function and rapid decompensation
[2022-01-01] MEDS: Atorvastatin Calcium 10 MG TABLET 5 MG PO (21:00)
[2022-01-01] MEDS: Mirtazapine 7.5 MG TABLET PO (21:00)
[2022-01-01] MEDS: traZODone HCL 100 MG TABLET PO (21:01)
[2022-01-02] MEDS: hydrOXYzine HCL 25 MG TABLET PO (00:41)
[2022-01-02] MEDS: LORazepam 1 MG TABLET PO ×2 (00:41→20:32)
[2022-01-02] MEDS: Methylphenidate HCl 5 MG TABLET 15 MG PO (07:13)
[2022-01-02 07:26] LABS: Glucose, Whole Blood 136 mg/dL (60-115)
[2022-01-02] MEDS: Gabapentin 300 MG CAPSULE 600 MG PO ×3 (08:25→20:32)
[2022-01-02] MEDS: buPROPion HCL 75 MG TABLET PO ×2 (08:25→20:33)
[2022-01-02] MEDS: Losartan Potassium 25 MG TABLET PO (08:25)
[2022-01-02] MEDS: metFORMIN HCl 500 MG TABLET PO ×2 (08:25→20:32)
[2022-01-02] MEDS: Sertraline HCL 100 MG TABLET 200 MG PO (08:25)
[2022-01-02] MEDS: Acetaminophen 325 MG TABLET 650 MG PO ×2 (08:31→21:42)
[2022-01-02] MEDS: Milk of Magnesia 30 ML ORAL.SUSP PO (08:31)
[2022-01-02 08:35] VITALS: BP 133/81; PULSE 70; RESP 16; TEMP 35.8; O2SAT 99
[2022-01-02 09:27] LABS: Creatinine Clr Calc Pharmacy 103.7; Estimated Glomerular Filt Rate > 60
[2022-01-02] MEDS: Sodium Chloride 0.65 % Nasal 44 ML SPRBTL 1 SPRAY NOSTRIL-B (13:55)
--- NOTE | 2022-01-02 17:26 | P.PNPSI_ITS ---
Subjective Subjective Date of Service: 01/02/22 Reason For Visit: Depression,SI Subjective Notes: Conditional Voluntary Interim History: Discussed a tense few days in milieu. Struggling with peers which he is focused on. Discussed using mindfulness skills. Agrees that he is more focused on others and peer struggles vs his own issues. It may be time for me to go home and return to my therapy. Medication Compliance: Yes Side effects from medications: No Attending Groups: Yes Review of Systems Acute medical concerns: No Medical Review of Systems: unchanged Review of Systems Reports behavioral changes Psychiatric: Reports anxiety, Reports behavioral changes, Reports irritability, Reports anhedonia and Reports suicidal ideation (denies) Mental Status Exam Mental Status Exam Patient Appearance: Appropriate Patient Orientation: Person, Place, Time and Situation Level of Consciousness: Alert Patient Behavior: Appropriate, Talkative, Cooperative and Good Eye Contact Mood Description: Apprehensive Affect Description: Flat Patient Cognition Impaired: No Ability to Follow Directions: Good Speech Pattern: Spontaneous Speech Memory Description: Intact Hallucinations: None Delusions: Not Present Thought Process: Distracted Thought Content: positive for [place], positive for Circumstantial and positive for Suicidal Ideation (denies) Depressive Symptoms: Increased Anxiety Judgement: Good Diagnostics Vital Signs (24Hr): Vital Signs - 24 hr 01/01/22 19:00 01/02/22 08:35 Temperature 97.1 F 96.4 F L Pulse Rate 67 70 Respiratory Rate 16 Blood Pressure 122/67 133/81 Pulse Oximetry 100 99 BMI result Body Mass Index 21.1 Labs Results: 12/21/21 15:02 01/02/22 08:08 Labs: Laboratory Results - last 48 hr 01/01/22 01/02/22 01/02/22 06:43 07:19 08:08 Creatinine 0.80 Estim Creat Clear Calc 103.7 Estimated GFR > 60 POC Glucose 114 136 H Imaging Radiology Impressions: ITS Impressions Chest X-Ray 12/21/21 16:38 IMPRESSION: Clear lungs. Wrist X-Ray 12/22/21 13:51 IMPRESSION: No acute abnormality of the wrist. If the pain persists consider follow-up studies. Medications Medications Current Medications Acetaminophen (Acetaminophen 325 Mg Tablet) 650 mg PO Q6H PRN PRN Reason: Headache/Pain Mild Scale (1-3) Last Admin: 01/02/22 08:31 Dose: 650 mg Documented by: Al Hydroxide/Mg Hydroxide (Magnesium Hydrox/Alum Hydrox 30 Ml Oral.Susp) 30 ml PO Q6H PRN PRN Reason: Heartburn/Nausea Atorvastatin Calcium (Atorvastatin Calcium 10 Mg Tablet) 5 mg PO BEDTIME [facility] Last Admin: 01/01/22 21:00 Dose: 5 mg Documented by: Bupropion HCl (Bupropion Hcl 75 Mg Tablet) 75 mg PO BID [facility] Last Admin: 01/02/22 08:25 Dose: 75 mg Documented by: Gabapentin (Gabapentin 300 Mg Capsule) 600 mg PO TID [facility] Last Admin: 01/02/22 15:19 Dose: 600 mg Documented by: Hydroxyzine HCl (Hydroxyzine Hcl 25 Mg Tablet) 25 mg PO Q6H PRN PRN Reason: Anxiety Last Admin: 01/02/22 00:41 Dose: 25 mg Documented by: Lorazepam (Lorazepam 1 Mg Tablet) 1 mg PO BID PRN PRN Reason: anxiety Last Admin: 01/02/22 00:41 Dose: 1 mg Documented by: Lorazepam (Lorazepam 1 Mg Tablet) 1 mg PO BEDTIME [facility] Last Admin: 01/01/22 21:00 Dose: 1 mg Documented by: Losartan Potassium (Losartan Potassium 25 Mg Tablet) 25 mg PO DAILY [facility]; Protocol Last Admin: 01/02/22 08:25 Dose: 25 mg Documented by: Magnesium Hydroxide (Milk Of Magnesia 30 Ml Oral.Susp) 30 ml PO DAILY PRN PRN Reason: Constipation Last Admin: 01/02/22 08:31 Dose: 30 ml Documented by: Metformin HCl (Metformin Hcl 500 Mg Tablet) 500 mg PO BID [facility] Last Admin: 01/02/22 08:25 Dose: 500 mg Documented by: Methylphenidate HCl (Methylphenidate Hcl 5 Mg Tablet) 15 mg PO DAILY@0700 [facility] Last Admin: 01/02/22 07:13 Dose: 15 mg Documented by: Mirtazapine (Mirtazapine 7.5 Mg Tablet) 7.5 mg PO BEDTIME [facility] Last Admin: 01/01/22 21:00 Dose: 7.5 mg Documented by: Sertraline HCl (Sertraline Hcl 100 Mg Tablet) 200 mg PO DAILY [facility] Last Admin: 01/02/22 08:25 Dose: 200 mg Documented by: Sodium Chloride (Sodium Chloride 0.65 % Nasal 44 Ml Sprbtl) 1 spray NOSTRIL-B Q1H PRN PRN Reason: dry nares Last Admin: 01/02/22 13:55 Dose: 1 spray Documented by: Trazodone HCl (Trazodone Hcl 100 Mg Tablet) 100 mg PO BEDTIME [facility] Last Admin: 01/01/22 21:01 Dose: 100 mg Documented by: Allergies Allergies Allergy/AdvReac Type Severity Reaction Status Date / Time bacitracin Allergy Unknown Rash Verified 12/28/21 14:17 lisinopril Allergy Unknown Rash Verified 12/28/21 14:17 codeine [Codeine] AdvReac Mild Nausea and Verified 01/02/22 11:50 Vomiting Assessment & Plan Assessment & Plan (1) Chronic post-traumatic stress disorder (PTSD): Status: Acute Code(s): F43.12 - Post-traumatic stress disorder, chronic (2) MDD (major depressive disorder), recurrent episode, moderate: Status: Acute Code(s): F33.1 - Major depressive disorder, recurrent, moderate (3) Hoarding disorder: Status: Acute Code(s): F42.3 - Hoarding disorder Plan 66 yo male with PTSD, recurrent MDD, hoarding sx (OCD) with current exacerbation of PTSD sx, conflicts at work and reports of difficulty at home I live [place] at home . Plan: Abilify 5 mg daily Continue other medications 12/23 no change in treatment plan 12/24 made trazodone 50 mg scheduled Made Ativan 1 mg q.h.s. scheduled; patient says he takes every night at home 12/25/21 Insomnia-Increase Trazodone to 100 mg hs Ensure tid Increase Abilify to 10 mg daily 12/26/21 Continue current regime 12/27/21 Continue current regime Willing to review hoarding resources to assist him in the home. 12/28/21 Discontinue Abilify-tolerated with no effect of augmentation Methylphenidate 10 mg a.m.. 12/29/21 Continue current plan. 12/30/21 Continue current plan. 12/31/21- Increase Methylphenidate to 15 mg a.m. 01/01/22- Continue current regime. 01/02/22- Continue current regime. Discharge planning. I spent minutes with the patient and/or on the patient floor today, greater than?50% of which was spent counseling/coordinating care. Patient educated on: therapeutic strategies Informed Consent: understands and further education needed Reason for contiued inpatient stay Substantial Risk for: harm to self, inability to function and rapid de compensation
[2022-01-02 18:00] VITALS: BP 153/77; PULSE 83; RESP 16; TEMP 35.9; O2SAT 98
[2022-01-02] MEDS: Mirtazapine 7.5 MG TABLET PO (20:32)
[2022-01-02] MEDS: traZODone HCL 100 MG TABLET PO (20:32)
[2022-01-02] MEDS: Atorvastatin Calcium 10 MG TABLET 5 MG PO (20:32)
[2022-01-03] MEDS: LORazepam 1 MG TABLET PO ×4 (03:30→22:20)
[2022-01-03] MEDS: Methylphenidate HCl 5 MG TABLET 15 MG PO (06:37)
[2022-01-03 08:04] LABS: Glucose, Whole Blood 111 mg/dL (60-115)
[2022-01-03] MEDS: Losartan Potassium 25 MG TABLET PO (08:53)
[2022-01-03] MEDS: Gabapentin 300 MG CAPSULE 600 MG PO ×3 (08:53→22:08)
[2022-01-03] MEDS: Sertraline HCL 100 MG TABLET 200 MG PO (08:53)
[2022-01-03] MEDS: buPROPion HCL 75 MG TABLET PO ×2 (08:54→22:07)
[2022-01-03] MEDS: metFORMIN HCl 500 MG TABLET PO ×2 (08:54→22:09)
[2022-01-03 09:04] VITALS: BP 144/75; PULSE 80; TEMP 36.2; O2SAT 95
--- NOTE | 2022-01-03 16:16 | P.PNPSI_ITS ---
Subjective Subjective Date of Service: 01/03/22 Reason For Visit: Depression,SI Subjective Notes: Conditional Voluntary Healthcare Proxy: No Guardianship: No Medical Problems Affecting Mental Status: No Interim History: Met with pt and Kiran GOODE Discussed current concerns and interpersonal difficulties with peers. Discussed future planning. Will proceed with discharge on 01/04. Medication Compliance: Yes Side effects from medications: No Attending Groups: Yes Review of Systems Acute medical concerns: No Medical Review of Systems: unchanged Review of Systems Reports behavioral changes Psychiatric: Reports anxiety, Reports behavioral changes and Reports suicidal ideation (denies) Mental Status Exam Mental Status Exam Patient Appearance: Appropriate Patient Orientation: Person, Place, Time and Situation Level of Consciousness: Alert Patient Behavior: Appropriate, Talkative, Cooperative and Good Eye Contact Mood Description: Apprehensive Affect Description: Constricted Patient Cognition Impaired: No Ability to Follow Directions: Good Speech Pattern: Spontaneous Speech Memory Description: Intact Hallucinations: None Delusions: Not Present Thought Process: Intact Thought Content: positive for Intact Judgement: Good Diagnostics Vital Signs (24Hr): Vital Signs - 24 hr 01/02/22 18:00 01/03/22 09:04 Temperature 96.6 F L 97.1 F Pulse Rate 83 80 Respiratory Rate 16 Blood Pressure 153/77 H 144/75 H Pulse Oximetry 98 95 BMI result Body Mass Index 21.1 Labs Results: 12/21/21 15:02 01/02/22 08:08 Labs: Laboratory Results - last 48 hr 01/02/22 01/02/22 01/03/22 07:19 08:08 07:56 Creatinine 0.80 Estim Creat Clear Calc 103.7 Estimated GFR > 60 POC Glucose 136 H 111 Imaging Radiology Impressions: ITS Impressions Chest X-Ray 12/21/21 16:38 IMPRESSION: Clear lungs. Wrist X-Ray 12/22/21 13:51 IMPRESSION: No acute abnormality of the wrist. If the pain persists consider follow-up studies. Medications Medications Current Medications Acetaminophen (Acetaminophen 325 Mg Tablet) 650 mg PO Q6H PRN PRN Reason: Headache/Pain Mild Scale (1-3) Last Admin: 01/02/22 21:42 Dose: 650 mg Documented by: Al Hydroxide/Mg Hydroxide (Magnesium Hydrox/Alum Hydrox 30 Ml Oral.Susp) 30 ml PO Q6H PRN PRN Reason: Heartburn/Nausea Atorvastatin Calcium (Atorvastatin Calcium 10 Mg Tablet) 5 mg PO BEDTIME [place] Last Admin: 01/02/22 20:32 Dose: 5 mg Documented by: Bupropion HCl (Bupropion Hcl 75 Mg Tablet) 75 mg PO BID [facility] Last Admin: 01/03/22 08:54 Dose: 75 mg Documented by: Gabapentin (Gabapentin 300 Mg Capsule) 600 mg PO TID [facility] Last Admin: 01/03/22 14:27 Dose: 600 mg Documented by: Hydroxyzine HCl (Hydroxyzine Hcl 25 Mg Tablet) 25 mg PO Q6H PRN PRN Reason: Anxiety Last Admin: 01/02/22 00:41 Dose: 25 mg Documented by: Lorazepam (Lorazepam 1 Mg Tablet) 1 mg PO BID PRN PRN Reason: anxiety Last Admin: 01/03/22 12:57 Dose: 1 mg Documented by: Lorazepam (Lorazepam 1 Mg Tablet) 1 mg PO BEDTIME [facility] Last Admin: 01/02/22 20:32 Dose: 1 mg Documented by: Losartan Potassium (Losartan Potassium 25 Mg Tablet) 25 mg PO DAILY [facility]; Protocol Last Admin: 01/03/22 08:53 Dose: 25 mg Documented by: Magnesium Hydroxide (Milk Of Magnesia 30 Ml Oral.Susp) 30 ml PO DAILY PRN PRN Reason: Constipation Last Admin: 01/02/22 08:31 Dose: 30 ml Documented by: Metformin HCl (Metformin Hcl 500 Mg Tablet) 500 mg PO BID [facility] Last Admin: 01/03/22 08:54 Dose: 500 mg Documented by: Methylphenidate HCl (Methylphenidate Hcl 5 Mg Tablet) 15 mg PO DAILY@0700 [facility] Last Admin: 01/03/22 06:37 Dose: 15 mg Documented by: Mirtazapine (Mirtazapine 7.5 Mg Tablet) 7.5 mg PO BEDTIME [facility] Last Admin: 01/02/22 20:32 Dose: 7.5 mg Documented by: Sertraline HCl (Sertraline Hcl 100 Mg Tablet) 200 mg PO DAILY [facility] Last Admin: 01/03/22 08:53 Dose: 200 mg Documented by: Sodium Chloride (Sodium Chloride 0.65 % Nasal 44 Ml Sprbtl) 1 spray NOSTRIL-B Q1H PRN PRN Reason: dry nares Last Admin: 01/02/22 13:55 Dose: 1 spray Documented by: Trazodone HCl (Trazodone Hcl 100 Mg Tablet) 100 mg PO BEDTIME [facility] Last Admin: 01/02/22 20:32 Dose: 100 mg Documented by: Allergies Allergies Allergy/AdvReac Type Severity Reaction Status Date / Time bacitracin Allergy Unknown Rash Verified 12/28/21 14:17 lisinopril Allergy Unknown Rash Verified 12/28/21 14:17 codeine [Codeine] AdvReac Mild Nausea and Verified 01/02/22 11:50 Vomiting Assessment & Plan Assessment & Plan (1) Chronic post-traumatic stress disorder (PTSD): Status: Acute Code(s): F43.12 - Post-traumatic stress disorder, chronic (2) MDD (major depressive disorder), recurrent episode, moderate: Status: Acute Code(s): F33.1 - Major depressive disorder, recurrent, moderate (3) Hoarding disorder: Status: Acute Code(s): F42.3 - Hoarding disorder Plan 66 yo male with PTSD, recurrent MDD, hoarding sx (OCD) with current exacerbation of PTSD sx, conflicts at work and reports of difficulty at home I live in [place] at home . Plan: Abilify 5 mg daily Continue other medications 12/23 no change in treatment plan 12/24 made trazodone 50 mg scheduled Made Ativan 1 mg q.h.s. scheduled; patient says he takes every night at home 12/25/21 Insomnia-Increase Trazodone to 100 mg hs Ensure tid Increase Abilify to 10 mg daily 12/26/21 Continue current regime 12/27/21 Continue current regime Willing to review hoarding resources to assist him in the home. 12/28/21 Discontinue Abilify-tolerated with no effect of augmentation Methylphenidate 10 mg a.m.. 12/29/21 Continue current plan. 12/30/21 Continue current plan. 12/31/21- Increase Methylphenidate to 15 mg a.m. 01/01/22- Continue current regime. 01/03/22-Discharge 01/04/22. Return to OP regime upon discharge. I spent minutes with the patient and/or on the patient floor today, greater than?50% of which was spent counseling/coordinating care. Patient educated on: therapeutic strategies Informed Consent: understands Reason for contiued inpatient stay Substantial Risk for: stable for discharge
[2022-01-03 18:50] VITALS: BP 121/67; PULSE 82; RESP 18; TEMP 36.4; O2SAT 97
[2022-01-03] MEDS: Sodium Chloride 0.65 % Nasal 44 ML SPRBTL 1 SPRAY NOSTRIL-B (20:30)
[2022-01-03] MEDS: Atorvastatin Calcium 10 MG TABLET 5 MG PO (22:05)
[2022-01-03] MEDS: Mirtazapine 7.5 MG TABLET PO (22:10)
[2022-01-03] MEDS: traZODone HCL 100 MG TABLET PO (22:10)
[2022-01-04] MEDS: Methylphenidate HCl 5 MG TABLET 15 MG PO (06:52)
[2022-01-04 07:01] LABS: Glucose, Whole Blood 105 mg/dL (60-115)
[2022-01-04 08:00] VITALS: BP 132/78; PULSE 84; TEMP 35.8; O2SAT 98
[2022-01-04] MEDS: Sertraline HCL 100 MG TABLET 200 MG PO (08:26)
[2022-01-04] MEDS: Gabapentin 300 MG CAPSULE 600 MG PO (08:26)
[2022-01-04] MEDS: metFORMIN HCl 500 MG TABLET PO (08:26)
[2022-01-04] MEDS: buPROPion HCL 75 MG TABLET PO (08:26)
[2022-01-04] MEDS: Losartan Potassium 25 MG TABLET PO (08:26)
--- NOTE | 2022-01-04 12:57 | PC.NURSE ---
Patient was well aware and ready for discharge. Paperwork reviewed with patient . Follow up appointment and next dose medications explained to patient. Patient verbalized understanding. Patient was accompanied with belongings to the front of the buildings per hospital policy.
--- NOTE | 2022-01-04 15:54 | PM.PSYDC ---
DS: Providers Provider Date of Service: 01/04/22 Date of admission: 12/21/21 20:48 Date of discharge: 01/04/22 Primary care physician: Kerline Chadwick MD Admitting clinician: Indiana Dawson Attending physician on admission: Indiana Dawson Attending physician on discharge: Indiana Dawson Discharging clinician: Indiana Dawson DS: Diagnosis Discharge Diagnosis (1) Chronic post-traumatic stress disorder (PTSD): Status: Acute (2) MDD (major depressive disorder), recurrent episode, moderate: Status: Acute (3) Hoarding disorder: Status: Acute DS: Medications Discharge Medications Home Medications: Home Medications Medication Instructions Recorded Confirmed simvastatin 5 mg tablet 5 mg PO DAILY 01/09/21 12/21/21 Previous Rx's Medication Instructions Recorded lorazepam 1 mg tablet 1 mg PO BID-TID PRN 30 Days #90 tab 09/05/21 metformin 500 mg tablet 500 mg PO BID #180 cap 10/17/21 mupirocin 2 % topical ointment 1 appl TOPICAL TID #22 g 11/16/21 gabapentin 300 mg capsule 600 mg PO TID 90 Days #540 cap 12/05/21 sertraline 100 mg tablet 200 mg PO DAILY #180 tab 12/05/21 losartan 25 mg tablet 25 mg PO DAILY #90 tab 12/07/21 methylphenidate HCl 60 mg biphasic 60 mg PO DAILY 30 Days #30 cap 12/07/21 50-50 capsule,extended release mirtazapine 7.5 mg tablet 7.5 mg PO BEDTIME 7 Days #7 tab 12/12/21 bupropion HCl 150 mg tablet,12 hr 150 mg PO DAILY #90 tab 12/20/21 sustained-release trazodone 100 mg tablet 100 mg PO BEDTIME PRN 90 Days #90 12/21/21 tab sodium chloride 0.65 % nasal spray 1 spray INTRANASAL Q1H PRN #44 ml 01/04/22 aerosol (Deep Sea Nasal) Mental Status Exam Mental Status Exam Patient Appearance: Appropriate Patient Orientation: Person, Place, Time and Situation Level of Consciousness: Alert Patient Behavior: Appropriate, Talkative, Cooperative and Good Eye Contact Mood Description: Apprehensive Affect Description: Constricted Patient Cognition Impaired: No Ability to Follow Directions: Good Speech Pattern: Spontaneous Speech Memory Description: Intact Hallucinations: None Delusions: Not Present Thought Process: Intact Thought Content: positive for Intact Judgement: Good Data Data Completed and Pending Completed studies during hospitalization [Text1]: 12/29/21 12/29/21 12/30/21 06:36 21:41 06:31 Creatinine Estim Creat Clear Calc Estimated GFR POC Glucose 119 H 89 97 12/31/21 01/01/22 01/02/22 06:36 06:43 07:19 Creatinine Estim Creat Clear Calc Estimated GFR POC Glucose 113 114 136 H 01/02/22 01/03/22 01/04/22 08:08 07:56 06:54 Creatinine 0.80 Estim Creat Clear Calc 103.7 Estimated GFR > 60 POC Glucose 111 105 Imaging Diagnostic Imaging Impressions Chest X-Ray 12/21/21 16:38 IMPRESSION: Clear lungs. Wrist X-Ray 12/22/21 13:51 IMPRESSION: No acute abnormality of the wrist. If the pain persists consider follow-up studies. DS: Summary Hospital Course Hospital Course: Admission to adult psychiatry to address symptoms of chronic PTSD, recurrent severe major depression and hoarding disorder. Pt admitted after an admission to [facility] hospital program. Care plan, medication regime and out patient plan of care prior to admission were reviewed. Education was provided regarding management of symptoms, medications and side effects. Nursing and social media coordinator worked with Nabeel on care planning, education regarding management of symptoms, medications and discharge planning. Medication regime was maintained. Methylphenidate was re-started. Nabeel responded to individual psychotherapy and appeared to get distracted with peers in the milieu and psychosocial struggles within the milieu. He was willing to accept assistance from [facility] with coaching regarding his hoarding and prefers to return to his individual therapy focus in out patient vs group focus on in patient milieu. Time spent discussing smoking cessation with patient: 3 to 10 minutes Status at Discharge Functional status at discharge: independent ambulation Overall status at discharge: patient is back to baseline Time Spent with Patient Time attestation: Total time spent providing and/or coordinating discharge services:35 Time spent: Greater than 30 minutes Discharge Plan Discharge Patient Disposition: Home, Self-Care Discharge Diagnosis: PTSD-Chronic Recurrent Major Depression Hoarding Disorder Referrals: [facility] [Other] (Referral to [facility]. Patient will need to follow-up with Agency following discharge and speak with Ric and complete intake for assistance with hoarding) Raeann Early [Other] - 01/09/22 8:00 am (Outpatient appointment with therapist by tele-health) Kerline Chadwick MD [Primary Care Provider] - 01/09/22 2:00 pm (IN OFFICE) Discharge Medications: New Deep Sea Nasal 0.65 % Aerosol,Flushing 1 spray intranasal Q1H PRN (Reason: dry nares) Qty: 44 0RF Continued simvastatin 5 mg tablet 5 mg PO DAILY 0RF lorazepam 1 mg tablet 1 mg PO BID-TID PRN (Reason: anxiety) 30 Days Qty: 90 0RF Rx Instructions: Take 2-3 times daily as needed. metformin 500 mg tablet 500 mg PO BID Qty: 180 3RF losartan 25 mg tablet 25 mg PO DAILY Qty: 90 3RF methylphenidate HCl 60 mg capsule,ER biphasic 50-50 60 mg PO DAILY 30 Days Qty: 30 0RF bupropion HCl 150 mg tablet sustained-release 12 hr 150 mg PO DAILY Qty: 90 0RF trazodone 100 mg tablet 100 mg PO BEDTIME PRN (Reason: insomnia) 90 Days Qty: 90 1RF mirtazapine 7.5 mg tablet 7.5 mg PO BEDTIME 7 Days Qty: 7 0RF gabapentin 300 mg capsule 600 mg PO TID 90 Days Qty: 540 2RF sertraline 100 mg tablet 200 mg PO DAILY Qty: 180 2RF mupirocin 2 % ointment 1 appl topical TID Qty: 22 0RF Discharge Orders: Discharge Order (Routine); Ordered 01/04/22 Ordered By: Indiana Dawson Diet: advance to usual diet Activity on Discharge: As tolerated Stand Alone Forms: Patient Portal Discharge page, Community Support Care Plan Goals: Mood Stabilization Health Concerns: Chronic PTSD Recurrent Major Depression Hoarding Disorder Plan of Treatment: Attend follow up appointments Take medications as directed Work with [facility] team on managing your belongings Call/return as needed [place] to work on coping skills Crisis Team [phone] can be called as needed. Assessment: non-psychotic non-suicidal Discharge Date/Time: 01/04/22 13:30
== END 2022-01-04 13:30 | disposition home or self-care (01) | DRG 751 ==
LOC: HO.ED 17:31 → HO.PM5 20:58
PROVIDERS: Physician Assistant; Registered Nurse; Admitting Provider Psychiatry & Neurology Psychiatry; Emergency Provider Internal Medicine; PCP Internal Medicine; Visit Provider Clinical Nurse Specialist Psychiatric/Mental Health, Adult
DX: F33.1 Major depressive disorder, recurrent, moderate (principal); R45.851 Suicidal ideations; M32.9 Systemic lupus erythematosus, unspecified; F43.12 Post-traumatic stress disorder, chronic; F42.3 Hoarding disorder; Z20.822 Contact with and (suspected) exposure to COVID-19; Z88.5 Allergy status to narcotic agent; Z88.8 Allergy status to other drugs, medicaments and biological substances; Z79.84 Long term (current) use of oral hypoglycemic drugs; Z79.899 Other long term (current) drug therapy; F90.9 Attention-deficit hyperactivity disorder, unspecified type
CPT/HCPCS: 36415; 71045; 73100; 80048; 80061; 80307; 81003; 82077; 82565; 82607; 82746; 82947; 83036; 83735; 83880; 84439; 84443; 84484; 85025; 87635; 93005; 99285

== ENCOUNTER 2022-01-02 13:46 | Outpatient (REF) | payer SELFPAY | END 2022-01-02 13:47 | disposition home or self-care (01) | LOC: HO.HAP 13:46 | PROVIDERS: Visit Provider Internal Medicine | DX: Z13.89 Encounter for screening for other disorder (principal) ==

== ENCOUNTER 2023-05-13 12:37 | Outpatient (AMB) | payer OTHER, SELFPAY ==
[2023-05-13 12:46] VITALS: BP 130/74; PULSE 67; O2SAT 97; BMI 27.1
--- NOTE | 2023-05-13 12:46 | A.OFFPC_ITS ---
Vital Signs 05/13/23 12:46 Height 6 ft Weight 200 lb BMI 27.1 BP 130/74 Blood Pressure Location Lt brachial Position Sitting Pulse 67 Pulse Source Pulse Oximeter Pulse Oximetry (%) 97 Oxygen Delivery Method Room Air Intake Visit Reasons: Cholesterol , DM Allergies bacitracin Allergy (Unknown, Verified 05/13/23 12:47) Rash lisinopril Allergy (Unknown, Verified 05/13/23 12:47) Rash codeine [Codeine] Adverse Reaction (Mild, Verified 05/13/23 12:47) Nausea and Vomiting Tobacco use date assessed: 11/07/22 Fall risk assessment: No Falls in past year Last assessed Fall Risk: 05/13/23 Dental Screening Dental Screen Date: 05/13/23 Did you have a dental visit in the last 12 months?: Yes Did you have a dental problem in the last 6 months where you did not have access to dental care?: No Was dental information given to patient?: Patient has dentist HPI Cholesterol , DM HPI Details 68-year-old overweight male with controlled diabetes mellitus hypercholesterolemia obsessive-compulsive disorder, ADHD hypertension diabetic neuropathy . and obstructive sleep apnea coming in for follow-up. Last seen in January 2023. Noted weight gain. Review of the notes received letter from adoption social worker whom the patient seeing for counseling concern about generalized anxiety disorder [facility] Medical History (Updated 05/13/23 @ 13:07 by Kerline Chadwick MD) Acute anxiety Annual physical exam Anxiety Burn Chest pain not due to acute coronary syndrome Chronic post-traumatic stress disorder (PTSD) Colon cancer screening Colonoscopy refused Diabetic foot Diabetic neuropathy Diverticular disease Hospital discharge follow-up Hypercholesterolemia Insomnia Left renal stone Obsessive compulsive disorder Obstructive sleep apnea SLE (systemic lupus erythematosus related syndrome) Substance abuse Type 2 diabetes mellitus with hyperglycemia Surgical History History of hammertoe correction Hx of colonoscopy S/P tonsillectomy Family History (Updated 02/07/23 @ 12:34 by Brynn Bolaños CMA) Father CVD (cardiovascular disease) Mother Diabetes Sister Bladder cancer Other ADHD Social History Household Members: None Household Members Other:: None Housing: Condominium Do you presently have visiting nurse or other home services: No Alcohol intake: former Patient Tobacco Use Status: Never used Tobacco e-Cigarette/Vaping Use: Never Used Second Hand Smoke Exposure: No service: No Current occupational status: employed Sexual orientation: Straight/Heterosexual Cognitive needs: Yes Hearing needs: Yes Vision needs: Yes Questionnaire PHQ-9 Over the last 2 weeks, how often have you been bothered by any of the following problems? 1. Little interest or pleasure in doing things: more than half the days 2. Feeling down, depressed, or hopeless: nearly every day 3. Trouble falling or staying asleep, or sleeping too much: nearly every day 4. Feeling tired or having little energy: nearly every day 5. Poor appetite or overeating: nearly every day 6. Feeling bad about yourself - or that you are a failure or have let yourself or your family down: nearly every day 7. Trouble concentrating on things, such as reading the newspaper or watching television: nearly every day 8. Moving or speaking so slowly that other people could have noticed. Or the opposite - being so fidgety or restless that you have been moving around a lot more than usual: several days 9. Thoughts that you would be better off or of hurting yourself in some way: several days Total score: 22 Depression Screening Interpretation: Positive Depression Screening Follow-up: In treatment Source: Developed by Drs. Connor Carson, Jerri Caro, Amado Elmore and colleagues, with an educational dinah from [employer]. Thrive Questionnaire Date Thrive assessed: 11/07/22 I am a: Patient What is your living situation today?: I have a steady place to live Within the past 12 months, did the food you bought not last and you didn't have the money to get more?: Never true Within the past 12 months, did you worry whether your food would run out before you got money to buy more?: Never true Do you have trouble paying for medicines?: No Do you have trouble getting transportation to medical appointments?: No Do you have trouble paying your heating and electricity bill?: No Do you have trouble taking care of your child, family member or friend?: No Do you have trouble with day-to-day activities such as bathing, preparing meals, shopping, managing finances, etc.?: No Are you currently unemployed and looking for a job?: No Are you interested in more education?: No Currently or been in a relationship where the following occur: no concerns reported AUDIT C Alcohol Use Questionnaire (AUDIT-C) 1. How often do you have a drink containing alcohol?: Never 2. How many drinks containing alcohol do you have on a typical day when you are drinking?: 1 or 2 (0) 3. How often do you have six or more drinks on one occasion?: Never Total Score: 0 Score Reviewed/Action Taken: No LEIA-7 AMB Questionnaire LEIA-7 Date LEIA - 7 assessed: 11/07/22 Source: Developed by Drs. Connor Carson, Jerri Caro, Amado Elmore and colleagues, with an educational dinah from [employer]. Physical exam (Primary Care) Vital Signs: Last Vital Signs Pulse 67 05/13/23 12:46 BP 130/74 05/13/23 12:46 Pulse Ox 97 05/13/23 12:46 Oxygen Delivery Method Room Air 05/13/23 12:46 BMI result Body Mass Index 27.1 Tobacco/Smoking Status: Tobacco use Status Tobacco use date assessed 11/07/22 05/13/23 12:48 Patient Tobacco Use Status Never used Tobacco 05/13/23 12:48 e-Cigarette/Vaping Use Never Used 05/13/23 12:48 PHQ-9: PHQ-9 Score PHQ-9: Total score 22 05/13/23 13:01 Depression Screening Interpretation: Positive Depression Screening Follow-up: In treatment Thrive Assessment: Date of Thrive Assessment Date Thrive assessed 11/07/22 05/13/23 12:48 Currently or been in a relationship where the following occur: no concerns reported Const General: alert; No acute distress Eyes Conjunctivae: conjunctivae normal Resp Auscultation: clear to auscultation bilaterally Cardio Rate: regular rate Rhythm: regular rhythm GI Inspection: Yes normal to inspection Extrem General: Yes normal to inspection and No edema Results AMB Hemoglobin A1c AMB Hemoglobin A1c 5.8 % Last Edit by Brynn Bolaños CMA on 05/13/23 13 :01 Results Reviewed Results Reviewed: Laboratory Last Values Hgb A1c (Clinic) 5.8 % (4.0-6.0) 05/13/23 12:48 Assessment and Plan Assessment & Plan (1) Overweight (BMI 25.0-29.9): Code(s): E66.3 - Overweight Plan: Diet and exercise (2) MDD (major depressive disorder), recurrent episode, moderate: Comment: Counseling Code(s): F33.1 - Major depressive disorder, recurrent, moderate Plan: Continue with counseling (3) Hypertension: Code(s): I10 - Essential (primary) hypertension Plan: Continue with blood pressure medication. Decrease salt intake and exercise patient is on losartan 25 mg once a day (4) Type 2 diabetes mellitus with hyperglycemia: Comment: Dr. Yin Code(s): E11.65 - Type 2 diabetes mellitus with hyperglycemia Qualifiers: Diabetes mellitus fdc insulin use: without intermodal owner operator truck driver use Qualif ied Code(s): E11.65 - Type 2 diabetes mellitus with hyperglycemia Plan: Decrease the amount of carbohydrate intake, pasta, bread, rice and potatoes are all sugar and that is aside from all the sweet stuff, remember that fruits are good but they are Sweet also. Hemoglobin A1c goal of less than 7.0. Patient is on metformin 500 mg once a day (5) Hypercholesterolemia: Code(s): E78.00 - Pure hypercholesterolemia, unspecified Plan: Avoid fried foods, chicken skin, eggs, butter margarine, pastries and meat. Be it pork or beef they have a lot of cholesterol on simvastatin. LDL goal of less than 100 reminded about blood work (6) Obsessive compulsive disorder: Comment: PTSD held on [facility] [place] once a week April 2020 Code(s): F42.9 - Obsessive-compulsive disorder, unspecified Qualifiers: Obsessive-compulsive disorder type: hoarding disorder Qualified Code(s): F42.3 - Hoarding disorder Plan: Continue with counseling (7) ADHD: Code(s): F90.9 - Attention-deficit hyperactivity disorder, unspecified type Qualifiers: Attention deficit-hyperactivity disorder type: combined inattentive- hyperactive Qualified Code(s): F90.2 - Attention-deficit hyperactivity disorder, combined type Plan: Continue with present medication and counseling Orders: Orders AMB Hemoglobin A1c Today Z13.9 - Encounter for screening, unspecified Medications: Refilled bupropion HCl 150 mg PO DAILY 90 tabs 2RF F32.A - Depression, unspecified gabapentin 600 mg (2 x 300 mg) PO TID 540 caps 2RF 90 days E11.40 - Type 2 diabetes mellitus with diabetic neuropathy, unspecified hydroxyzine HCl 25 mg PO TID 270 tabs 1RF anxiety 90 days F41.9 - Anxiety disorder, unspecified lorazepam Take 2-3 times daily as needed. 1 mg PO BID-TID PRN 90 tabs 1RF anxiety 30 days F90.9 - Attention-deficit hyperactivity disorder, unspecified type losartan 25 mg PO DAILY 90 tabs 3RF I10 - Essential (primary) hypertension metformin 500 mg PO DAILY 90 caps 3RF 90 days E11.65 - Type 2 diabetes mellitus with hyperglycemia methylphenidate HCl Partial Fill upon patient request. 40 mg PO DAILY 30 caps 0RF 30 days F90.2 - Attention-deficit hyperactivity disorder, combined type sertraline 200 mg (2 x 100 mg) PO DAILY 180 tabs 2RF E11.65 - Type 2 diabetes mellitus with hyperglycemia simvastatin 5 mg PO DAILY 90 tabs 3RF E11.65 - Type 2 diabetes mellitus with hyperglycemia trazodone 100 mg PO BEDTIME PRN 90 tabs 1RF insomnia 90 days E11.65 - Type 2 diabetes mellitus with hyperglycemia Coding Level of Care Code Est Pt Level 4 (53782) Diagnoses Overweight (BMI 25.0-29.9) E66.3 MDD (major depressive disorder), recurrent episode, moderate F33.1 Hypertension I10 Type 2 diabetes mellitus with hyperglycemia E11.65 Diabetes mellitus 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
== END 2023-05-13 13:21 | disposition home or self-care (01) ==
PROVIDERS: PCP Internal Medicine; Visit Provider Internal Medicine
DX: F33.1 Major depressive disorder, recurrent, moderate (principal); I10 Essential (primary) hypertension; E11.65 Type 2 diabetes mellitus with hyperglycemia; F90.2 Attention-deficit hyperactivity disorder, combined type; E66.3 Overweight; E78.00 Pure hypercholesterolemia, unspecified; F42.3 Hoarding disorder
CPT/HCPCS: 83036; 99214

== ENCOUNTER 2023-05-22 07:41 | Outpatient (REF) | payer OTHER, SELFPAY ==
[2023-05-22 07:53] LABS: MANUAL DIFF FLAG NO
[2023-05-22 08:20] LABS: Basophils Absolute Auto 0.1 X10*3/uL (0.0-0.2); Basophils Percent Auto 0.6 % (0-2); Eosinophils Absolute Auto 0.8 X10*3/uL (0.0-0.4); Eosinophils Percent Auto 7.6 % (0-4); Hematocrit 41.4 % (42.0-52.0); Hemoglobin 14.9 g/dl (14.0-18.0); Imm Gran Abs Auto 0.04 X10*3/uL (0.00-0.03); Imm Gran Pct Auto 0.4 % (0.0-0.4); Lymphocytes Absolute Auto 3.2 X10*3/uL (1.2-4.9); Lymphocytes Percent Auto 29.9 % (20-40); Mean Corpuscular Volume 91.8 fL (80.0-98.0); Mean Platelet Volume 10.1 fL (9.4-12.4); Monocytes Percent Auto 9.5 % (2-11); Neutrophils Absolute Auto 5.6 x10*3/uL (2.0-8.3); Platelet Count 293 X10*3/uL (160-400); Red Blood Count 4.51 X10*6/uL (4.60-5.80); Red Cell Distribution Width 12.1 % (11.0-16.0); White Blood Count 10.8 X10*3/uL (4.8-10.8)
[2023-05-22 08:54] LABS: Estimated Average Glucose 108 mg/dL; Hemoglobin A1c % 5.4 % (<6.0)
[2023-05-22 09:04] LABS: Alanine Aminotransferase 23 U/L (0-40); Albumin Level 4.3 g/dL (3.5-5.0); Alkaline Phosphatase 67 U/L (39-117); Anion Gap 13 (12-20); Aspartate Amino Transferase 22 U/L (5-37); Bilirubin Total 0.4 mg/dL (0.0-1.0); Blood Urea Nitrogen 15 mg/dL (9-16); Calcium 9.5 mg/dL (8.4-10.2); Carbon Dioxide 26 mmol/L (22-29); Chloride 106 mmol/L (96-108); Cholesterol 157 mg/dL (<200); Estimated Glomerular Filt Rate > 60; Glucose Random 117 mg/dL (60-115); HDL Cholesterol 58 mg/dL (>40); LDL Cholesterol Calculated 84 mg/dL (<100); Sodium 141 mmol/L (135-145); Total Protein 7.5 g/dL (6.5-8.0); Triglycerides 75 mg/dL (<150)
[2023-05-22 09:19] LABS: Free T4 (Free Thyroxine) 1.02 ng/dL (0.71-1.85); Thyroid Stimulating Hormone 1.45 uIU/mL (0.32-4.0)
[2023-05-22 09:36] LABS: Folate 14.1 ng/mL (> or = 4.0); Prostate Specific Antigen Scr 2.95 ng/mL (<0.05-4.0); Vitamin B12 668 pg/mL (200-900)
[2023-05-22 11:13] LABS: Creatinine Urine 84.82 mg/dL; Microalbumin Urine < 5.0 mg/L
== END 2023-05-22 07:42 | disposition home or self-care (01) ==
LOC: HO.LAB 07:41
PROVIDERS: PCP Internal Medicine; Visit Provider Internal Medicine
DX: Z12.5 Encounter for screening for malignant neoplasm of prostate (principal); E11.65 Type 2 diabetes mellitus with hyperglycemia; E78.00 Pure hypercholesterolemia, unspecified
CPT/HCPCS: 36415; 80053; 80061; 82043; 82570; 82607; 82746; 83036; 84153; 84439; 84443; 85025

== ENCOUNTER 2023-08-26 12:46 | Outpatient (AMB) | payer OTHER, SELFPAY ==
[2023-08-26 12:48] VITALS: BP 112/62; PULSE 76; O2SAT 98; BMI 27.3
--- NOTE | 2023-08-26 12:48 | MHC.PC.OV ---
Vital Signs 08/26/23 12:48 Height 6 ft Weight 201 lb BMI 27.3 BP 112/62 Blood Pressure Location Lt brachial Position Sitting Pulse 76 Pulse Source Pulse Oximeter Pulse Oximetry (%) 98 Oxygen Delivery Method Room Air Intake Visit Reasons: Depression, DM HTN Chicken Tender Required: No Allergies bacitracin Allergy (Unknown, Verified 08/26/23 12:48) Rash lisinopril Allergy (Unknown, Verified 08/26/23 12:48) Rash codeine [Codeine] Adverse Reaction (Mild, Verified 08/26/23 12:48) Nausea and Vomiting Tobacco use date assessed: 08/26/23 Fall risk assessment: No Falls in past year Last assessed Fall Risk: 08/26/23 Dental Screening Dental Screen Date: 08/26/23 Did you have a dental visit in the last 12 months?: No Did you have a dental problem in the last 6 months where you did not have access to dental care?: No HPI Depression, DM HTN HPI Details 68-year-old overweight male with diabetes mellitus controlled hypertension hypercholesterolemia obsessive-compulsive disorder ADHD and major depressive disorder last seen in April 2023. Patient is here for follow-up. Patient's Cologuard test was done in November 2022 negative. Patient recently saw the eye doctor August 2023 showing open angle and borderline finding glaucoma stable no retinopathy cataracts but not significant retinal lesion [facility] Medical History (Updated 05/13/23 @ 13:07 by Kerline Chadwick MD) Colon cancer screening Colonoscopy refused Hospital discharge follow-up Chest pain not due to acute coronary syndrome Acute anxiety Chronic post-traumatic stress disorder (PTSD) Anxiety Annual physical exam Diabetic foot Burn Left renal stone Substance abuse SLE (systemic lupus erythematosus related syndrome) Diverticular disease Type 2 diabetes mellitus with hyperglycemia Diabetic neuropathy Hypercholesterolemia Obsessive compulsive disorder Obstructive sleep apnea Insomnia Surgical History Hx of colonoscopy S/P tonsillectomy History of hammertoe correction Family History (Updated 02/07/23 @ 12:34 by Brynn Bolaños CMA) Father CVD (cardiovascular disease) Mother Diabetes Sister Bladder cancer Other ADHD Social History Household Members: None Household Members Other:: None Housing: Condominium Do you presently have visiting nurse or other home services: No Alcohol intake: former Patient Tobacco Use Status: Never used Tobacco e-Cigarette/Vaping Use: Never Used Second Hand Smoke Exposure: No service: No Current occupational status: employed Sexual orientation: Straight/Heterosexual Cognitive needs: Yes Hearing needs: Yes Vision needs: Yes Questionnaire PHQ-9 Over the last 2 weeks, how often have you been bothered by any of the following problems? 1. Little interest or pleasure in doing things: more than half the days 2. Feeling down, depressed, or hopeless: nearly every day 3. Trouble falling or staying asleep, or sleeping too much: nearly every day 4. Feeling tired or having little energy: nearly every day 5. Poor appetite or overeating: nearly every day 6. Feeling bad about yourself - or that you are a failure or have let yourself or your family down: nearly every day 7. Trouble concentrating on things, such as reading the newspaper or watching television: nearly every day 8. Moving or speaking so slowly that other people could have noticed. Or the opposite - being so fidgety or restless that you have been moving around a lot more than usual: several days 9. Thoughts that you would be better off or of hurting yourself in some way: several days Total score: 22 Depression Screening Interpretation: Positive Depression Screening Follow-up: In treatment Depression Screening Done: Yes Source: Developed by Drs. Connor Carson, Jerri Caro, Amado Elmore and colleagues, with an educational dinah from [employer]. Thrive Questionnaire Date Thrive assessed: 11/07/22 AUDIT C Alcohol Use Questionnaire (AUDIT-C) 1. How often do you have a drink containing alcohol?: Never 2. How many drinks containing alcohol do you have on a typical day when you are drinking?: 1 or 2 (0) 3. How often do you have six or more drinks on one occasion?: Never Total Score: 0 Score Reviewed/Action Taken: No LEIA-7 AMB Questionnaire LEIA-7 Date LEIA - 7 assessed: 08/26/23 Feeling nervous, anxious, or on edge: 1 = Several days Not being able to stop or control worryin = Several days Worrying too much about different things: 0 = Not at all Trouble relaxin = Not at all Being so restless that it is hard to sit still: 0 = Not at all Becoming easily annoyed or irritable: 0 = Not at all Feeling afraid as if something awful might happen: 0 = Not at all Total LEIA-7 score (0-4 normal; 5-9 mild; 10-14 moderate; 15-21 severe): 2 Source: Developed by Drs. Connor Carson, Jerri Caro, Amado Elmore and colleagues, with an educational dinah from [employer]. Physical exam (Primary Care) Vital Signs: Last Vital Signs Pulse 76 08/26/23 12:48 BP 112/62 08/26/23 12:48 Pulse Ox 98 08/26/23 12:48 Oxygen Delivery Method Room Air 08/26/23 12:48 BMI result Body Mass Index 27.3 Tobacco/Smoking Status: Tobacco use Status Tobacco use date assessed 08/26/23 08/26/23 12:51 Patient Tobacco Use Status Never used Tobacco 08/26/23 12:51 e-Cigarette/Vaping Use Never Used 08/26/23 12:51 PHQ-9: PHQ-9 Score PHQ-9: Total score 22 08/26/23 12:51 Depression Screening Interpretation: Positive Depression Screening Follow-up: In treatment Thrive Assessment: Date of Thrive Assessment Date Thrive assessed 11/07/22 08/26/23 12:51 Const General: alert; No acute distress Eyes Conjunctivae: conjunctivae normal Resp Auscultation: clear to auscultation bilaterally Cardio Rate: regular rate Rhythm: regular rhythm GI Inspection: Yes normal to inspection Extrem General: Yes normal to inspection and No edema Office Procedures Flu Questionnaire Does the patient have a severe egg allergy?: No Does the patient have severe life threatening allergies?: No Does the patient have a fever or illness today?: No Has the patient ever had Guillain-Lampe Syndrome?: No Has the patient ever had any past reaction to a flu shot?: No Results AMB Hemoglobin A1c AMB Hemoglobin A1c 6.2 % Last Edit by JULES Carrero on 08/26/23 13:02 Immunizations flu vacc [id number] 6mos up(PF) 60 mcg(15 mcgx4)/0.5 mL IM syringe Performing Provider: Kerline Chadwick MD [facility] Administered by: JULES Carrero on 08/26/23 13:01 Dose Route Admin Location Dispensed Lot Number Expiration Date NDC Scooter Mechanic 0.5 mL IM Left Deltoid 0.5 mL [id number] 03/15/24 [id number] [employer] VIS Given Date VIS Provided VIS Publication Date 08/26/23 Single Vaccine 21 Eligibility Eligibility Date Funding Source Not [facility] Eligible 08/26/23 Private Results Reviewed Results Reviewed: Laboratory Last Values Hgb A1c (Clinic) 6.2 % (4.0-6.0) H 08/26/23 12:43 Assessment and Plan Assessment & Plan (1) Type 2 diabetes mellitus with hyperglycemia: Comment: Dr. Yin Code(s): E11.65 - Type 2 diabetes mellitus with hyperglycemia Qualifiers: Diabetes mellitus extermination inspector insulin use: without mcfp use Qualified Code(s): E11.65 - Type 2 diabetes mellitus with hyperglycemia Plan: Decrease the amount of carbohydrate intake, pasta, bread, rice and potatoes are all sugar and that is aside from all the sweet stuff, remember that fruits are good but they are Sweet also. Hemoglobin A1c goal of less than 7.0. Patient is on metformin 500 mg once a day (2) Hypercholesterolemia: Code(s): E78.00 - Pure hypercholesterolemia, unspecified Plan: Avoid fried foods, chicken skin, eggs, butter margarine, pastries and meat. Be it pork or beef they have a lot of cholesterol LDL goal of less than 100 and triglyceride of less than 150. Last blood work was May 2023 (3) Obsessive compulsive disorder: Comment: PTSD held on [facility] in [place] once a week April 2020 Code(s): F42.9 - Obsessive-compulsive disorder, unspecified Qualifiers: Obsessive-compulsive disorder type: hoarding disorder Qualified Code(s): F42.3 - Hoarding disorder Plan: Continue with counseling and therapy. On trazodone, sertraline lorazepam and bupropion (4) Overweight (BMI 25.0-29.9): Code(s): E66.3 - Overweight Plan: Diet and exercise (5) Hypertension: Code(s): I10 - Essential (primary) hypertension Plan: Continue with blood pressure medication. Decrease salt intake and exercise patient is on losartan 25 mg once a day Orders: Orders AMB Hemoglobin A1c Today E11.65 - Type 2 diabetes mellitus with hyperglycemia Influenza [id number] Immunization Today Z23 - Encounter for immunization Coding Level of Care Code Est Pt Level 4 (97801) Diagnoses Type 2 diabetes mellitus with hyperglycemia, without long-term current use of insulin E11.65 Diabetes mellitus extermination inspector insulin use: without mcfp use Hypercholesterolemia E78.00 Hoarding disorder F42.3 Obsessive-compulsive disorder type: hoarding disorder Overweight (BMI 25.0-29.9) E66.3 Hypertension I10 Additional Codes PHQ-9 - 01565 - PHQ-9 Billing: ([id number])
== END 2023-08-26 13:24 | disposition home or self-care (01) ==
PROVIDERS: PCP Internal Medicine; Visit Provider Internal Medicine
DX: E11.65 Type 2 diabetes mellitus with hyperglycemia (principal); E78.00 Pure hypercholesterolemia, unspecified; F42.3 Hoarding disorder; Z23 Encounter for immunization; E66.3 Overweight; I10 Essential (primary) hypertension
CPT/HCPCS: 83036; 90471; 90686; 99214

== ENCOUNTER 2023-09-06 10:19 | Outpatient (REF) | payer OTHER, SELFPAY | END 2023-09-06 10:20 | disposition home or self-care (01) | LOC: HO.SH 10:19 | PROVIDERS: Visit Provider Internal Medicine | DX: Z01.118 Encounter for examination of ears and hearing with other abnormal findings (principal); H90.3 Sensorineural hearing loss, bilateral | CPT/HCPCS: 92552 ==

== ENCOUNTER 2023-09-06 11:33 | Outpatient (REF) | payer SELFPAY ==
--- NOTE | 2023-09-06 15:02 | MHC.AU.MED ---
Medical Clearance for Hearing Instrumentation Date: 09/06/23 Patient Name: Nabeel Saha Date of : 1955 Primary Care Provider: Referring Provider: Kerline Chadwick MD We have seen your patient on 09/06/23 and have determined that they are a candidate for amplification (See accompanying report). Specifically, they would benefit from: Hearing aid use in both ears There is a statute that addresses Medical Evaluation Requirements prior to fitting a patient with a hearing aid. According to [place] statute 265 CMR:6.03(1), (a) General. Except as provided in 265 CMR 6.03(1)(b), a cloth shearing supervisor shall not sell a hearing aid unless the prospective user has presented to the cloth shearing supervisor a written statement signed by a licensed physician that states that the patient's hearing loss has been medically evaluated and the patient may be considered a candidate for a hearing aid. The medical evaluation must have taken place within the preceding six months. Please note: Due to the [place] Statute referenced above, we cannot accept a signature other than that of a licensed physician. CLAIM SPECIALIST and PA signatures cannot be accepted. I am in agreement with the above recommendation. There is no medical contraindication for hearing instrumentation. Physician Signature Date Physician Name (Printed)
--- NOTE | 2023-09-17 13:17 | MHC.AU.HA1 ---
Hearing Aid Evaluation Date of Visit: 09/06/23 Film Washer Used: Historical Information: Description of Hearing: Right ear: Moderately severe to profound mixed hearing loss Left ear: Moderate to moderately severe sensorineural hearing loss Summary: Nabeel is currently wearing amplifiers as he lost his hearing aids quite some time ago. He states he wants to pursue new hearing aids, would like to go back to the Vopium system, and would like for them to be able to stream to his Android phone. He is quite opposed to earmolds as he has had issues with comfort in the past and has successfully used domes. He understands my recommendation would be an earmold in the left ear, and agreed to re-evaluate this plan if we run into issues achieving adequate gain. Will contact for fitting once aids are in. Hearing Aid Prescription: Based on the individual?s shared listening needs, communication environments, dexterity, desire for connectivity, and personal preferences, the following prescription for amplification has been made: Right ear: Make, Model, Color: Phonak CROS Battery Size: Rechargeable Online Media Buyer/Slim Tube: 2 Type of Earmold/Dome/CShell/SlimTip: med open Left ear: Left ear prescription to be same as Right Hearing Aid above: Make, Model, Color: Phonak L70R Battery Size: Rechargeable Online Media Buyer/Slim Tube: 2 M Type of Earmold/Dome/CShell/SlimTip: med power Accessories/Assistive Technology Recommended: logging contractor Plan of Care: Patient wishes to purchase hearing aids as prescribed Action Taken/Action Needed: Medical Clearance to be requested from PCP/ENT Hearing Instrument Fitting to be scheduled when materials arrive Primary Diagnosis: H90.A31 Mixed HL, Unilateral Right Ear, W/Restricted Contralateral Secondary Diagnosis: H90.A22 SNHL, Unilatearl, Left Ear, W/Restricted Contralateral Hearing Signature: Provider: Geovani Santa, [facility]
== END 2023-09-06 11:34 | disposition home or self-care (01) ==
LOC: HO.HAP 11:33
PROVIDERS: Visit Provider Internal Medicine
DX: Z46.1 Encounter for fitting and adjustment of hearing aid (principal); H90.3 Sensorineural hearing loss, bilateral
CPT/HCPCS: 92552; 92590

== ENCOUNTER 2023-09-26 14:41 | Outpatient (REF) | payer SELFPAY ==
--- NOTE | 2023-09-27 13:02 | MHC.AU.HA2 ---
Hearing Instrument Fitting- Adult- Binaural Date of Visit: 09/26/23 Hearing Instruments Dispensed: Right Ear: Make, Model, Color, Serial Number: Phonak CROS Electric Green SN [id number] Lawn Mower Sharpener Repair Warranty: 12/08/2026 Lawn Mower Sharpener Loss and Damage Warranty: 12/08/2026 [facility] Service Plan: N/A Battery Size: Rechargeable Experimental Display Builder/Slim Tube: 2 Earmold/Dome/CShell/SlimTip: med open Type of Wax Guard: CeruShield Left Ear: Make, Model, Color, Serial Number: Phonak L70R Electric Green SN [id number] Lawn Mower Sharpener Repair Warranty: 12/08/2026 Lawn Mower Sharpener Loss and Damage Warranty: 12/08/2026 [facility] Service Plan: N/A Battery Size: Rechargeable Experimental Display Builder/Slim Tube: 2 M Earmold/Dome/CShell/SlimTip: med power Type of Wax Guard: CeruShield Accessories/Assistive Technology: Phonak [employer] Miller Ease [id number] Summary of Fitting: Nabeel visited for fitting with Phonak L70R biCROS system. He is an experienced hearing aid user. Reviewed wire charger use and cleaning process. Programmed and verified to NAL-NL2 targets and ran again for headshadow effect. Nabeel is aware of my previous recommendation for an earmold in his left ear, though Real Ear measurements looked excellent with a power dome. Paired his left hearing aid with his phone. Follow up in 3 wks. Recommendations: Recommendations: A hearing instrument follow-up is recommended in 2-3 weeks. Diagnosis Code(s): Primary Diagnosis: H90.3 Bilateral Sensorineural Hearing Loss Signature: Provider: Geovani Santa, CCC-A
== END 2023-09-26 14:42 | disposition home or self-care (01) ==
LOC: HO.HAP 14:41
PROVIDERS: Visit Provider Internal Medicine
DX: Z46.1 Encounter for fitting and adjustment of hearing aid (principal); H90.3 Sensorineural hearing loss, bilateral
CPT/HCPCS: V5221; V5299

== ENCOUNTER 2023-10-17 14:28 | Outpatient (REF) | payer SELFPAY ==
--- NOTE | 2023-10-17 15:40 | MHC.AU.HA3 ---
Hearing Instrument Follow-Up- Binaural Date of Visit: 10/17/23 Right Ear: Make, Model, Color, Serial Number: Carley CROS Electric Green SN [id number] Hr Clerk Repair Warranty: 12/08/2026 Hr Clerk Loss and Damage Warranty: 12/08/2026 [facility] Service Plan: N/A Battery Size: Rechargeable Scaffold Erector/Slim Tube: 2 Earmold/Dome/CShell/SlimTip:med open [facility]ax [facility]: [facility] Date of Fittin09/26/23 Left Ear: Make, Model, Color, Serial Number: Carley L70R Electric Green SN [id number] Hr Clerk Repair Warranty: 12/08/2026 Hr Clerk Loss and Damage Warranty: 12/08/2026 [facility] Service Plan: N/A Battery Size: Rechargeable Scaffold Erector/Slim Tube: 2 M Earmold/Dome/CShell/SlimTip: med power [facility] Wax [facility] Date of Fittin09/26/23 Follow-Up Summary: Nabeel visited for fitting follow up; he states he is doing well with the hearing aids and is getting used to wearing them again. No adjustments needed at this time. He wants to stay on top of regular audiograms and plans to request a doctors order at his next physical. Recommendations: Recommendations: Hearing instrument follow-up or maintenance as needed. Diagnosis Code(s): Primary Diagnosis: H90.3 Bilateral Sensorineural Hearing Loss Signature: Provider: Geovani Santa, CCC-A
== END 2023-10-17 14:29 | disposition home or self-care (01) ==
LOC: HO.HAP 14:28
PROVIDERS: Visit Provider Internal Medicine
DX: Z13.89 Encounter for screening for other disorder (principal)

== ENCOUNTER 2023-12-04 10:14 | Outpatient (AMB) | payer SELFPAY ==
[2023-12-04 10:18] VITALS: BP 130/88; PULSE 97; O2SAT 99; BMI 26.6
--- NOTE | 2023-12-04 10:18 | A.OFFPC_ITS ---
Vital Signs 12/04/23 10:18 Height 6 ft Weight 196 lb 0.6 oz BMI 26.6 BP 130/88 Blood Pressure Location Lt brachial Position Sitting Pulse 97 Pulse Source Pulse Oximeter Pulse Oximetry (%) 99 Oxygen Delivery Method Room Air Intake Visit Reasons: DM Intake Note: Patient is here to follow up on DM White Metal Caster Required: No Allergies bacitracin Allergy (Unknown, Verified 12/04/23 10:18) Rash lisinopril Allergy (Unknown, Verified 12/04/23 10:18) Rash codeine [Codeine] Adverse Reaction (Mild, Verified 12/04/23 10:18) Nausea and Vomiting Tobacco use date assessed: 12/04/23 Fall risk assessment: No Falls in past year Last assessed Fall Risk: 12/04/23 Dental Screening Dental Screen Date: 12/04/23 Did you have a dental visit in the last 12 months?: No Did you have a dental problem in the last 6 months where you did not have access to dental care?: No HPI DM HPI Details 68-year-old overweight male with control led diabetes mellitus hypercholesterolemia obsessive-compulsive disorder hypertension coming in for follow-up. Last seen in August 2023. Patient's Cologuard is up-to-date November 2022. [facility] Medical History (Updated 05/13/23 @ 13:07 by Kerline Chadwick MD) Colon cancer screening Colonoscopy refused Hospital discharge follow-up Chest pain not due to acute coronary syndrome Acute anxiety Chronic post-traumatic stress disorder (PTSD) Anxiety Annual physical exam Diabetic foot Burn Left renal stone Substance abuse SLE (systemic lupus erythematosus related syndrome) Diverticular disease Type 2 diabetes mellitus with hyperglycemia Diabetic neuropathy Hypercholesterolemia Obsessive compulsive disorder Obstructive sleep apnea Insomnia Surgical History Hx of colonoscopy S/P tonsillectomy History of hammertoe correction Family History (Updated 02/07/23 @ 12:34 by Brynn Bolaños CMA) Father CVD (cardiovascular disease) Mother Diabetes Sister Bladder cancer Other ADHD Social History Household Members: None Household Members Other:: None Housing: Condominium Do you presently have visiting nurse or other home services: No Alcohol intake: former Patient Tobacco Use Status: Never used Tobacco e-Cigarette/Vaping Use: Never Used Second Hand Smoke Exposure: No service: No Current occupational status: employed Sexual orientation: Straight/Heterosexual Cognitive needs: Yes Hearing needs: Yes Vision needs: Yes Questionnaire Thrive Questionnaire Date Thrive assessed: 12/04/23 I am a: Patient What is your living situation today?: I have a steady place to live Within the past 12 months, did the food you bought not last and you didn't have the money to get more?: Never true Within the past 12 months, did you worry whether your food would run out before you got money to buy more?: Never true Do you have trouble paying for medicines?: No Do you have trouble getting transportation to medical appointments?: No Do you have trouble paying your heating and electricity bill?: No Do you have trouble taking care of your child, family member or friend?: No Do you have trouble with day-to-day activities such as bathing, preparing meals, shopping, managing finances, etc.?: No Are you currently unemployed and looking for a job?: No Are you interested in more education?: No Please select the resources that you would like help with: None THRIVE Score: 0 AUDIT C Alcohol Use Questionnaire (AUDIT-C) 1. How often do you have a drink containing alcohol?: Never 2. How many drinks containing alcohol do you have on a typical day when you are drinking?: 1 or 2 (0) 3. How often do you have six or more drinks on one occasion?: Never Total Score: 0 Score Reviewed/Action Taken: No LEIA-7 AMB Questionnaire LEIA-7 Date LEIA - 7 assessed: 12/04/23 Source: Developed by Drs. Connor Carson, Jerri Caro, Amado Elmore and colleagues, with an educational dinah from [employer]. Physical exam (Primary Care) Vital Signs: Last Vital Signs Pulse 97 12/04/23 10:18 BP 130/88 12/04/23 10:18 Pulse Ox 99 12/04/23 10:18 Oxygen Delivery Method Room Air 12/04/23 10:18 BMI result Body Mass Index 26.6 Tobacco/Smoking Status: Tobacco use Status Tobacco use date assessed 12/04/23 12/04/23 10:30 Patient Tobacco Use Status Never used Tobacco 12/04/23 10:30 e-Cigarette/Vaping Use Never Used 12/04/23 10:30 Thrive Assessment: Date of Thrive Assessment Date Thrive assessed 12/04/23 12/04/23 10:30 Const General: alert; No acute distress Eyes Conjunctivae: conjunctivae normal Resp Auscultation: clear to auscultation bilaterally Cardio Rate: regular rate Rhythm: regular rhythm GI Inspection: Yes normal to inspection Extrem General: Yes normal to inspection and No edema Results AMB Hemoglobin A1c AMB Hemoglobin A1c 6.3 % Last Edit by JULES Carrero on 12/04/23 10:33 Assessment and Plan Assessment & Plan (1) Overweight (BMI 25.0-29.9): Code(s): E66.3 - Overweight Plan: Continue with diet and exercise (2) Type 2 diabetes mellitus with hyperglycemia: Comment: Dr. Yin Code(s): E11.65 - Type 2 diabetes mellitus with hyperglycemia Qualifiers: Diabetes mellitus extermination supervisor insulin use: without extermination supervisor use Qualified Code(s): E11.65 - Type 2 diabetes mellitus with hyperglycemia Plan: Decrease the amount of carbohydrate intake, pasta, bread, rice and potatoes are all sugar and that is aside from all the sweet stuff, remember that fruits are good but they are Sweet also. Hemoglobin A1c goal of less than 7.0. On metformin 500 mg once a day (3) Hypercholesterolemia: Code(s): E78.00 - Pure hypercholesterolemia, unspecified Plan: Avoid fried foods, chicken skin, eggs, butter margarine, pastries and meat. Be it pork or beef they have a lot of cholesterol LDL goal of less than 100 and triglyceride of less than 150. Blood work last done in May 2023 on simvastatin 5 mg once a day (4) Obsessive compulsive disorder: Comment: PTSD held on [facility] in [place] once a week April 2020 Code(s): F42.9 - Obsessive-compulsive disorder, unspecified Qualifiers: Obsessive-compulsive disorder type: hoarding disorder Qualified Code( s): F42.3 - Hoarding disorder Plan: Continue with counseling and therapy (5) Hypertension: Code(s): I10 - Essential (primary) hypertension Plan: Continue with blood pressure medication. Decrease salt intake and exercise on losartan 25 mg once a day Orders: Orders AMB Hemoglobin A1c Today E11.65 - Type 2 diabetes mellitus with hyperglycemia Coding Level of Care Code Est Pt Level 4 (04416) Diagnoses Overweight (BMI 25.0-29.9) E66.3 Type 2 diabetes mellitus with hyperglycemia, without long-term current use of insulin E11.65 Diabetes mellitus [facility] insulin use: without extermination supervisor use Hypercholesterolemia E78.00 Hoarding disorder F42.3 Obsessive-compulsive disorder type: hoarding disorder Hypertension I10
== END 2023-12-04 10:41 | disposition home or self-care (01) ==
PROVIDERS: PCP Internal Medicine; Visit Provider Internal Medicine
DX: E66.3 Overweight (principal); E11.65 Type 2 diabetes mellitus with hyperglycemia; E78.00 Pure hypercholesterolemia, unspecified; F42.3 Hoarding disorder; I10 Essential (primary) hypertension
CPT/HCPCS: 83036; 99214

== ENCOUNTER 2024-04-02 07:59 | Outpatient (AMB) | payer SELFPAY ==
[2024-04-02 08:24] VITALS: BP 144/82; PULSE 81; O2SAT 96; BMI 26.9
--- NOTE | 2024-04-02 08:24 | A.OFFPC_ITS ---
Vital Signs 04/02/24 08:24 Height 6 ft Weight 89.811 kg BMI 26.9 BP 144/82 H Blood Pressure Location Lt brachial Position Sitting Pulse 81 Pulse Source Pulse Oximeter Pulse Oximetry (%) 96 Oxygen Delivery Method Room Air Intake Visit Reasons: DM Allergies bacitracin Allergy (Unknown, Verified 04/02/24 08:25) Rash lisinopril Allergy (Unknown, Verified 04/02/24 08:25) Rash codeine [Codeine] Adverse Reaction (Mild, Verified 04/02/24 08:25) Nausea and Vomiting Tobacco use date assessed: 12/04/23 Fall risk assessment: No Falls in past year Last assessed Fall Risk: 04/02/24 Dental Screening Dental Screen Date: 12/04/23 HPI DM HPI Details 69-year-old overweight male with control led diabetes mellitus hypercholesterolemia hypertension with an obsessive-compulsive disorder last seen in November 2023. Patient is up-to-date with the Cologuard December 03- complains of having depression- has been hoarding still. 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 But otherwise has been having no problems no refills needed [facility] Medical History (Updated 05/13/23 @ 13:07 by Kerline Chadwick MD) Colon cancer screening Colonoscopy refused Hospital discharge follow-up Chest pain not due to acute coronary syndrome Acute anxiety Chronic post-traumatic stress disorder (PTSD) Anxiety Annual physical exam Diabetic foot Burn Left renal stone Substance abuse SLE (systemic lupus erythematosus related syndrome) Diverticular disease Type 2 diabetes mellitus with hyperglycemia Diabetic neuropathy Hypercholesterolemia Obsessive compulsive disorder Obstructive sleep apnea Insomnia Surgical History Hx of colonoscopy S/P tonsillectomy History of hammertoe correction Family History (Updated 02/07/23 @ 12:34 by Brynn Bolaños CMA) Father CVD (cardiovascular disease) Mother Diabetes Sister Bladder cancer Other ADHD Social History Household Members: None Household Members Other:: None Housing: Condominium Do you presently have visiting nurse or other home services: No Alcohol intake: former Patient Tobacco Use Status: Never used Tobacco e-Cigarette/Vaping Use: Never Used Second Hand Smoke Exposure: No service: No Current occupational status: employed Sexual orientation: Straight/Heterosexual Cognitive needs: Yes Hearing needs: Yes Vision needs: Yes Questionnaire PHQ-9 Over the last 2 weeks, how often have you been bothered by any of the following problems? 1. Little interest or pleasure in doing things: more than half the days 2. Feeling down, depressed, or hopeless: nearly every day 3. Trouble falling or staying asleep, or sleeping too much: nearly every day 4. Feeling tired or having little energy: nearly every day 5. Poor appetite or overeating: nearly every day 6. Feeling bad about yourself - or that you are a failure or have let yourself or your family down: nearly every day 7. Trouble concentrating on things, such as reading the newspaper or watching television: nearly every day 8. Moving or speaking so slowly that other people could have noticed. Or the opposite - being so fidgety or restless that you have been moving around a lot more than usual: several days 9. Thoughts that you would be better off or of hurting yourself in some way: several days Total score: 22 Depression Screening Interpretation: Positive Depression Screening Follow-up: In treatment Depression Screening Done: Yes Source: Developed by Drs. Connor Carson, Jerri Caro, Amado Elmore and colleagues, with an educational dinah from [employer]. Thrive Questionnaire Date Thrive assessed: 12/04/23 AUDIT C Alcohol Use Questionnaire (AUDIT-C) 1. How often do you have a drink containing alcohol?: Never 2. How many drinks containing alcohol do you have on a typical day when you are drinking?: 1 or 2 (0) 3. How often do you have six or more drinks on one occasion?: Never Total Score: 0 Score Reviewed/Action Taken: No LEIA-7 AMB Questionnaire LEIA-7 Date LEIA - 7 assessed: 12/04/23 Source: Developed by Drs. Connor Carson, Jerri Caro, Amado Elmore and colleagues, with an educational dinah from [employer]. Physical exam (Primary Care) Vital Signs: Last Vital Signs Pulse 81 04/02/24 08:24 BP 144/82 H 04/02/24 08:24 Pulse Ox 96 04/02/24 08:24 Oxygen Delivery Method Room Air 04/02/24 08:24 BMI result Body Mass Index 26.9 Tobacco/Smoking Status: Tobacco use Status Tobacco use date assessed 12/04/23 04/02/24 08:25 Patient Tobacco Use Status Never used Tobacco 04/02/24 08:25 e-Cigarette/Vaping Use Never Used 04/02/24 08:25 PHQ-9: PHQ-9 Score PHQ-9: Total score 22 04/02/24 08:39 Depression Screening Interpretation: Positive Depression Screening Follow-up: In treatment Thrive Assessment: Date of Thrive Assessment Date Thrive assessed 12/04/23 04/02/24 08:25 Const General: alert; No acute distress Eyes Conjunctivae: conjunctivae normal Resp Auscultation: clear to auscultation bilaterally Cardio Rate: regular rate Rhythm: regular rhythm GI Inspection: Yes normal to inspection Extrem General: Yes normal to inspection and No edema Results AMB Hemoglobin A1c AMB Hemoglobin A1c 6.0 % Last Edit by Brynn Bolaños CMA on 04/02/24 08 :57 Assessment and Plan Assessment & Plan (1) Type 2 diabetes mellitus with hyperglycemia: Comment: Dr. Yin Code(s): E11.65 - Type 2 diabetes mellitus with hyperglycemia Qualifiers: Diabetes mellitus skilled nursing insulin use: without terminal computer operator use Qualified Code(s): E11.65 - Type 2 diabetes mellitus with hyperglycemia Plan: Decrease the amount of carbohydrate intake, pasta, bread, rice and potatoes are all sugar and that is aside from all the sweet stuff, remember that fruits are good but they are Sweet also. Hemoglobin A1c goal of less than 7.0 patient is diet controlled (2) Hypercholesterolemia: Code(s): E78.00 - Pure hypercholesterolemia, unspecified Plan: Avoid fried foods, chicken skin, eggs, butter margarine, pastries and meat. Be it pork or beef they have a lot of cholesterol LDL goal of less than 100 and triglyceride of less than 150 on simvastatin 5 mg once a day May 2023 last blood work (3) Hypertension: Code(s): I10 - Essential (primary) hypertension Plan: Continue with blood pressure medication. Decrease salt intake and exercise presently on no medication continue to monitor. (4) Obsessive compulsive disorder: Comment: PTSD held on [facility] in [place] once a week April 2020 Code(s): F42.9 - Obsessive-compulsive disorder, unspecified Qualifiers: Obsessive-compulsive disorder type: hoarding disorder Qualified Code(s): F42.3 - Hoarding disorder Plan: Continue with counseling and therapy taking trazodone, lorazepam, bupropion and gabapentin patient is referred for counseling and therapy right (5) Overweight (BMI 25.0-29.9): Code(s): E66.3 - Overweight Plan: Stable continue with diet and exercise Orders: Orders AMB Hemoglobin A1c Today Z13.9 - Encounter for screening, unspecified Complete Blood Count Auto Diff 2 Months E11.65 - Type 2 diabetes mellitus with hyperglycemia Comprehensive Met. Panel 2 Months E11.65 - Type 2 diabetes mellitus with hyperglycemia Creatinine Urine 2 Months E11.65 - Type 2 diabetes mellitus with hyperglycemia Lipid Panel 2 Months E11.65 - Type 2 diabetes mellitus with hyperglycemia, E78.00 - Pure hypercholesterolemia, unspecified Hemoglobin A1c 2 Months E11.65 - Type 2 diabetes mellitus with hyperglycemia Microalbumin, Random (w Creat) 2 Months E11.65 - Type 2 diabetes mellitus with hyperglycemia Free T4 (Free Thyroxine) 2 Months E11.65 - Type 2 diabetes mellitus with hyperglycemia Thyroid Stimulating Hormone 2 Months E11.65 - Type 2 diabetes mellitus with hyperglycemia Vitamin B12 and Folate 2 Months E11.65 - Type 2 diabetes mellitus with hyperglycemia Prostate Specific Antigen Scr 2 Months E11.65 - Type 2 diabetes mellitus with hyperglycemia Referrals Psychiatry Outpatient Consultation Service F42.3 - Hoarding disorder Coding Level of Care Code Est Pt Level 4 (37145) Diagnoses Type 2 diabetes mellitus with hyperglycemia, without long-term current use of insulin E11.65 Diabetes mellitus terminal computer operator insulin use: without terminal computer operator use Hypercholesterolemia E78.00 Hypertension I10 Hoarding disorder F42.3 Obsessive-compulsive disorder type: hoarding disorder Overweight (BMI 25.0-29.9) E66.3 Additional Codes PHQ-9 - 76617 - PHQ-9 Billing: ([id number])
== END 2024-04-02 09:01 | disposition home or self-care (01) ==
PROVIDERS: PCP Internal Medicine; Visit Provider Internal Medicine
DX: E11.65 Type 2 diabetes mellitus with hyperglycemia (principal); E78.00 Pure hypercholesterolemia, unspecified; I10 Essential (primary) hypertension; F42.3 Hoarding disorder; E66.3 Overweight
CPT/HCPCS: 83036; 99214

== ENCOUNTER 2024-05-19 13:06 | Outpatient (REF) | payer SELFPAY | END 2024-05-19 13:07 | disposition home or self-care (01) | LOC: HO.HAP 13:06 | PROVIDERS: Visit Provider Internal Medicine | DX: Z46.1 Encounter for fitting and adjustment of hearing aid (principal); H90.3 Sensorineural hearing loss, bilateral | CPT/HCPCS: 92593 ==

== ENCOUNTER 2024-07-03 07:44 | Outpatient (REF) | payer BC, SELFPAY ==
[2024-07-03 07:59] LABS: MANUAL DIFF FLAG NO
[2024-07-03 08:45] LABS: Basophils Absolute Auto 0.1 X10*3/uL (0.0-0.2); Basophils Percent Auto 0.6 % (0-2); Eosinophils Absolute Auto 0.9 X10*3/uL (0.0-0.4); Eosinophils Percent Auto 7.8 % (0-4); Hematocrit 42.9 % (42.0-52.0); Hemoglobin 14.6 g/dl (14.0-18.0); Imm Gran Abs Auto 0.04 X10*3/uL (0.00-0.03); Imm Gran Pct Auto 0.4 % (0.0-0.4); Lymphocytes Percent Auto 36.2 % (20-40); Mean Corpuscular Hemoglobin 31.4 pg (27.0-33.0); Mean Corpuscular Volume 92.3 fL (80.0-98.0); Mean Platelet Volume 9.9 fL (9.4-12.4); Monocytes Absolute Auto 1.1 X10*3/uL (0.1-1.2); Monocytes Percent Auto 9.5 % (2-11); Neutrophils Percent Auto 45.5 % (45-73); Platelet Count 322 X10*3/uL (160-400); Red Blood Count 4.65 X10*6/uL (4.60-5.80); Red Cell Distribution Width 12.4 % (11.0-16.0)
[2024-07-03 08:56] LABS: Estimated Average Glucose 128 mg/dL; Hemoglobin A1C 151.4668 umol/L; Hemoglobin A1c % 6.1 % (<6.0); Total Hemoglobin (HGBA1C) 3524.3851 umol/L
[2024-07-03 09:25] LABS: Creatinine Urine 112.01 mg/dL; Microalbumin Urine < 5.0 mg/L
[2024-07-03 09:33] LABS: Alanine Aminotransferase 39 U/L (0-40); Albumin Level 4.3 g/dL (3.5-5.0); Alkaline Phosphatase 69 U/L (39-117); Anion Gap 13 (12-20); Aspartate Amino Transferase 25 U/L (5-37); Bilirubin Total 0.7 mg/dL (0.0-1.0); Blood Urea Nitrogen 20 mg/dL (9-16); Calcium 9.7 mg/dL (8.4-10.2); Carbon Dioxide 29 mmol/L (22-29); Chloride 105 mmol/L (96-108); Cholesterol 162 mg/dL (<200); Estimated Glomerular Filt Rate > 60; Glucose Random 127 mg/dL (60-115); HDL Cholesterol 47 mg/dL (>40); LDL Cholesterol Calculated 99 mg/dL (<100); Potassium 4.3 mmol/L (3.3-5.1); Sodium 143 mmol/L (135-145); Total Protein 7.3 g/dL (6.5-8.0); Triglycerides 81 mg/dL (<150)
[2024-07-03 09:34] LABS: Free T4 (Free Thyroxine) 1.02 ng/dL (0.71-1.85); Thyroid Stimulating Hormone 2.21 uIU/mL (0.32-4.0)
[2024-07-03 09:44] LABS: Folate 11.2 ng/mL (> or = 4.0); Prostate Specific Antigen Scr 3.23 ng/mL (<0.05-4.0); Vitamin B12 549 pg/mL (200-900)
== END 2024-07-03 07:45 | disposition home or self-care (01) ==
LOC: HO.LAB 07:44
PROVIDERS: PCP Internal Medicine; Visit Provider Internal Medicine
DX: E11.65 Type 2 diabetes mellitus with hyperglycemia (principal); E78.00 Pure hypercholesterolemia, unspecified; Z12.5 Encounter for screening for malignant neoplasm of prostate
CPT/HCPCS: 36415; 80053; 80061; 82043; 82570; 82607; 82746; 83036; 84153; 84439; 84443; 85025

== ENCOUNTER 2024-07-27 13:01 | Outpatient (AMB) | payer BC, SELFPAY ==
--- NOTE | 2024-07-27 13:04 | A.OFFPC_ITS ---
Vital Signs 07/27/24 13:06 Height 6 ft Weight 200 lb 2 oz BMI 27.1 BP 126/74 Blood Pressure Location Lt brachial Position Sitting Pulse 88 Pulse Source Pulse Oximeter Pulse Oximetry (%) 97 Oxygen Delivery Method Room Air Intake Visit Reasons: Follow up Allergies bacitracin Allergy (Unknown, Verified 07/27/24 13:07) Rash lisinopril Allergy (Unknown, Verified 07/27/24 13:07) Rash gabapentin Adverse Reaction (Intermediate, Unverified 07/27/24 13:29) leg swelling codeine [Codeine] Adverse Reaction (Mild, Verified 07/27/24 13:07) Nausea and Vomiting trazodone Adverse Reaction (Intermediate, Uncoded 07/27/24 13:29) night mare Tobacco use date assessed: 07/27/24 Fall risk assessment: No Falls in past year Last assessed Fall Risk: 07/27/24 Dental Screening Dental Screen Date: 07/27/24 Did you have a dental visit in the last 12 months?: No Did you have a dental problem in the last 6 months where you did not have access to dental care?: No Was dental information given to patient?: Patient has dentist HPI Follow up HPI Details 69-year-old overweight male with diabete s mellitus hypercholesterolemia hypertension obsessive-compulsive disorder coming in for follow-up. Last seen in 04/02/2024 [facility]. [facility], [facility] Medical History Colon cancer screening Colonoscopy refused Hospital discharge follow-up Chest pain not due to acute coronary syndrome Acute anxiety Chronic post-traumatic stress disorder (PTSD) Anxiety Annual physical exam Diabetic foot Burn Left renal stone Substance abuse SLE (systemic lupus erythematosus related syndrome) Diverticular disease Type 2 diabetes mellitus with hyperglycemia Diabetic neuropathy Hypercholesterolemia Obsessive compulsive disorder Obstructive sleep apnea Insomnia Surgical History Hx of colonoscopy S/P tonsillectomy History of hammertoe correction Family History Father CVD (cardiovascular disease) Mother Diabetes Sister Bladder cancer Other ADHD Social History Household Members: None Household Members Other:: None Housing: Condominium Do you presently have visiting nurse or other home services: No Alcohol intake: former Patient Tobacco Use Status: Never used Tobacco e-Cigarette/Vaping Use: Never Used Second Hand Smoke Exposure: No service: No Current occupational status: employed Sexual orientation: Straight/Heterosexual Cognitive needs: Yes Hearing needs: Yes Vision needs: Yes Questionnaire PHQ-9 Over the last 2 weeks, how often have you been bothered by any of the following problems? 1. Little interest or pleasure in doing things: several days 2. Feeling down, depressed, or hopeless: nearly every day 3. Trouble falling or staying asleep, or sleeping too much: nearly every day 4. Feeling tired or having little energy: nearly every day 5. Poor appetite or overeating: nearly every day 6. Feeling bad about yourself - or that you are a failure or have let yourself or your family down: nearly every day 7. Trouble concentrating on things, such as reading the newspaper or watching television: more than half the days 8. Moving or speaking so slowly that other people could have noticed. Or the opposite - being so fidgety or restless that you have been moving around a lot more than usual: more than half the days 9. Thoughts that you would be better off or of hurting yourself in some way: several days Total score: 21 Depression Screening Interpretation: Positive Depression Screening Follow-up: In treatment Depression Screening Done: Yes 90507 - PHQ-9 Billing: Yes Source: Developed by Drs. Connor Carson, Jerri Caro, Amado Elmore and colleagues, with an educational dinah from [email or web address]. Thrive Questionnaire Date Thrive assessed: 12/04/23 I am a: Patient What is your living situation today?: I have a steady place to live Within the past 12 months, did the food you bought not last and you didn't have the money to get more?: Never true Within the past 12 months, did you worry whether your food would run out before you got money to buy more?: Never true Do you have trouble paying for medicines?: No Do you have trouble getting transportation to medical appointments?: No Do you have trouble paying your heating and electricity bill?: No Do you have trouble taking care of your child, family member or friend?: No Do you have trouble with day-to-day activities such as bathing, preparing meals, shopping, managing finances, etc.?: No Are you currently unemployed and looking for a job?: No Are you interested in more education?: No Please select the resources that you would like help with: None THRIVE Score: 0 AUDIT C Alcohol Use Questionnaire (AUDIT-C) 1. How often do you have a drink containing alcohol?: Never 3. How often do you have six or more drinks on one occasion?: Never Total Score: 0 Score Reviewed/Action Taken: No LEIA-7 AMB Questionnaire LEIA-7 Date LEIA - 7 assessed: 07/27/24 Feeling nervous, anxious, or on edge: 2 = More than half the days Not being able to stop or control worryin = Nearly every day Worrying too much about different things: 3 = Nearly every day Trouble relaxin = More than half the days Being so restless that it is hard to sit still: 2 = More than half the days Becoming easily annoyed or irritable: 2 = More than half the days Feeling afraid as if something awful might happen: 3 = Nearly every day Total LEIA-7 score (0-4 normal; 5-9 mild; 10-14 moderate; 15-21 severe): 17 Source: Developed by Drs. Connor Carson, Jerri Caro, Amado Elmore and colleagues, with an educational dinah from [email or web address]. LEIA-7 Assessment Billing LEIA-7 Assessment Tool: LEIA-7 Assessment 01538 Physical exam (Primary Care) Vital Signs: Last Vital Signs Pulse 88 07/27/24 13:06 BP 126/74 07/27/24 13:06 Pulse Ox 97 07/27/24 13:06 Oxygen Delivery Method Room Air 07/27/24 13:06 BMI result Body Mass Index 27.1 Tobacco/Smoking Status: Tobacco use Status Tobacco use date assessed 07/27/24 07/27/24 13:12 Patient Tobacco Use Status Never used Tobacco 07/27/24 13:12 e-Cigarette/Vaping Use Never Used 07/27/24 13:12 PHQ-9: PHQ-9 Score PHQ-9: Total score 21 07/27/24 13:12 Depression Screening Interpretation: Positive Depression Screening Follow-up: In treatment Thrive Assessment: Date of Thrive Assessment Date Thrive assessed 12/04/23 07/27/24 13:12 Const General: alert; No acute distress Eyes Conjunctivae: conjunctivae normal Resp Auscultation: clear to auscultation bilaterally Cardio Rate: regular rate Rhythm: regular rhythm GI Inspection: Yes normal to inspection Extrem General: Yes normal to inspection and No edema Coding Level of Care Code Est Pt Level 4 (23389) Complex EM visit Add On G2211 Diagnoses Overweight (BMI 25.0-29.9) E66.3 Type 2 diabetes mellitus with hyperglycemia, without long-term current use of insulin E11.65 Diabetes mellitus lobsterman insulin use: without senior care use Hypercholesterolemia E78.00 Hoarding disorder F42.3 Obsessive-compulsive disorder type: hoarding disorder Primary hypertension I10 Hypertension type: primary hypertension Peripheral vascular disease I73.9 Idiopathic peripheral neuropathy G60.9 Peripheral neuropathy type: idiopathic neuropathy, unspecified Primary insomnia F51.01 Insomnia type: primary Additional Codes LEIA-7 Assessment Billing - LEIA-7 Assessment Tool: LEIA-7 Assessment 43632 ([id number]) PHQ-9 - 32746 - PHQ-9 Billing: Yes ([id number]) Assessment & Plan Assessment & Plan (1) Overweight (BMI 25.0-29.9): Code(s): E66.3 - Overweight Category: Medical Plan: Diet and exercise (2) Type 2 diabetes mellitus with hyperglycemia: Comment: Dr. Yin Code(s): E11.65 - Type 2 diabetes mellitus with hyperglycemia Category: Medical Qualifiers: Diabetes mellitus senior care insulin use: without senior care use Qualified Code(s): E11.65 - Type 2 diabetes mellitus with hyperglycemia Plan: Decrease the amount of carbohydrate intake, pasta, bread, rice and potatoes are all sugar and that is aside from all the sweet stuff, remember that fruits are good but they are Sweet also. Hemoglobin A1c goal of less than 7.0. Patient is diet controlled. (3) Hypercholesterolemia: Code(s): E78.00 - Pure hypercholesterolemia, unspecified Category: Medical Plan: Avoid fried foods, chicken skin, eggs, butter margarine, pastries and meat. Be it pork or beef they have a lot of cholesterol LDL goal of less than 100 and triglyceride of less than 150. Presently on diet control. (4) Obsessive compulsive disorder: Comment: PTSD held on [facility] in [place] once a week April 2020 Code(s): F42.9 - Obsessive-compulsive disorder, unspecified Category: Medical Qualifiers: Obsessive-compulsive disorder type: hoarding disorder Qualified Code(s): F42.3 - Hoarding disorder Plan: Continue with counseling and therapy referral for counseling done (5) Hypertension: Code(s): I10 - Essential (primary) hypertension Category: Medical Qualifiers: Hypertension type: primary hypertension Qualified Code(s): I10 - Essential (primary) hypertension Plan: Continue with blood pressure medication. Decrease salt intake and exercise patient is diet controlled. (6) Peripheral vascular disease: Code(s): I73.9 - Peripheral vascular disease, unspecified Category: Medical Plan: discussed about gabapentinn causing swelling - will d/c When sitting down elevate the legs, exercise, and support stockings (7) Peripheral neuropathy: Code(s): G62.9 - Polyneuropathy, unspecified Category: Medical Qualifiers: Peripheral neuropathy type: idiopathic neuropathy, unspecified Qualified Code(s): G60.9 - Hereditary and idiopathic neuropathy, unspecified Plan: will send a med in place of gabapentin. Duloxetine (8) Insomnia: Code(s): G47.00 - Insomnia, unspecified Category: Medical Qualifiers: Insomnia type: primary Qualified Code(s): F51.01 - Primary insomnia Plan: no zolpidem and trazodone- will try a different med ramelteon Orders: Referrals Psychiatry Referral F42.3 - Hoarding disorder Medications: New cetirizine (Zyrtec) 10 mg PO DAILY PRN 90 tabs 1RF allergy symptoms duloxetine 30 mg PO DAILY 30 caps 3RF G62.9 - Polyneuropathy, unspecified ramelteon 8 mg PO BEDTIME PRN 30 tabs 2RF sleep F51.01 - Primary insomnia Discontinued gabapentin Discontinued Reason: Doctor's Order 600 mg (2 x 300 mg) PO TID 90 days 540 caps 2RF E11.40 - Type 2 diabetes mellitus with diabetic neuropathy, unspecified
[2024-07-27 13:06] VITALS: BP 126/74; PULSE 88; O2SAT 97; BMI 27.1
== END 2024-07-27 13:49 | disposition home or self-care (01) ==
PROVIDERS: PCP Internal Medicine; Visit Provider Internal Medicine
DX: E11.65 Type 2 diabetes mellitus with hyperglycemia (principal); I73.9 Peripheral vascular disease, unspecified; E66.3 Overweight; Z68.27 Body mass index [BMI] 27.0-27.9, adult; E78.00 Pure hypercholesterolemia, unspecified; F42.3 Hoarding disorder; I10 Essential (primary) hypertension; G60.9 Hereditary and idiopathic neuropathy, unspecified; F51.01 Primary insomnia

== ENCOUNTER → 2024-07-27 13:01 | Outpatient (BNVA) | payer BC, SELFPAY | PROVIDERS: PCP Internal Medicine; Visit Provider Internal Medicine | DX: E66.3 Overweight (principal); E11.65 Type 2 diabetes mellitus with hyperglycemia; E78.00 Pure hypercholesterolemia, unspecified; F42.3 Hoarding disorder; I10 Essential (primary) hypertension; I73.9 Peripheral vascular disease, unspecified; G60.9 Hereditary and idiopathic neuropathy, unspecified; F51.01 Primary insomnia | CPT/HCPCS: 96127 ==

== ENCOUNTER 2024-11-13 12:30 | Outpatient (AMB) | payer MEDICARE, SELFPAY ==
--- NOTE | 2024-11-13 12:54 | MHC.PC.OV ---
Vital Signs 11/13/24 12:56 Height 6 ft Weight 195 lb 6 oz BMI 26.5 BP 130/82 Blood Pressure Location Lt brachial Position Sitting Pulse 104 H Pulse Source Pulse Oximeter Temp 97.1 F Temp Source Temporal Artery Scan Pulse Oximetry (%) 97 Oxygen Delivery Method Room Air Intake Visit Reasons: PVD, P neuropathy Intake Note: Patient is here to follow up on PVD, Neuropathy. Deicer Finisher Required: No Pre Parole Counseling Aide: Not Required per policy Accompanied by: Self / Same As Patient Allergies bacitracin Allergy (Unknown, Verified 11/13/24 12:55) Rash lisinopril Allergy (Unknown, Verified 11/13/24 12:55) Rash gabapentin Adverse Reaction (Intermediate, Verified 11/13/24 12:55) leg swelling codeine [Codeine] Adverse Reaction (Mild, Verified 11/13/24 12:55) Nausea and Vomiting trazodone Adverse Reaction (Intermediate, Uncoded 11/13/24 12:55) night mare Medication List - Last Reconciled 11/13/24 by Kerline Chadwick MD blood sugar diagnostic (FreeStyle Lite Strips) As directed check the BS QD bupropion HCl SR 150 mg PO DAILY cetirizine (Zyrtec) 10 mg PO DAILY PRN duloxetine 30 mg PO DAILY gabapentin 100 mg PO TID 90 days hydroxyzine HCl 25 mg PO TID PRN lancets (FreeStyle Lancets) As directed check BS QD lorazepam 1 mg PO BID-TID PRN 30 days mupirocin 2% 1 appl topical TID sodium chloride 0.65% (Deep Sea Nasal) 1 spray intranasal Q1H PRN Tobacco use date assessed: 11/13/24 Fall risk assessment: No Falls in past year Last assessed Fall Risk: 11/13/24 Dental Screening Dental Screen Date: 11/13/24 Did you have a dental visit in the last 12 months?: No Did you have a dental problem in the last 6 months where you did not have access to dental care?: No Was dental information given to patient?: No [facility] Medical History Colon cancer screening Colonoscopy refused Hospital discharge follow-up Chest pain not due to acute coronary syndrome Acute anxiety Chronic post-traumatic stress disorder (PTSD) Anxiety Annual physical exam Diabetic foot Burn Left renal stone Substance abuse SLE (systemic lupus erythematosus related syndrome) Diverticular disease Type 2 diabetes mellitus with hyperglycemia Diabetic neuropathy Hypercholesterolemia Obsessive compulsive disorder Obstructive sleep apnea Insomnia Surgical History Hx of colonoscopy S/P tonsillectomy History of hammertoe correction Family History Father CVD (cardiovascular disease) Mother Diabetes Sister Bladder cancer Other ADHD Social History Household Members: None Household Members Other:: None Housing: Condominium Do you presently have visiting nurse or other home services: No Alcohol intake: former Patient Tobacco Use Status: Never used Tobacco e-Cigarette/Vaping Use: Never Used Second Hand Smoke Exposure: No service: No Current occupational status: employed Sexual orientation: Straight/Heterosexual Cognitive needs: Yes Hearing needs: Yes Vision needs: Yes Questionnaire PHQ-9 Over the last 2 weeks, how often have you been bothered by any of the following problems? 1. Little interest or pleasure in doing things: more than half the days 2. Feeling down, depressed, or hopeless: several days 3. Trouble falling or staying asleep, or sleeping too much: more than half the days 4. Feeling tired or having little energy: more than half the days 5. Poor appetite or overeating: several days 6. Feeling bad about yourself - or that you are a failure or have let yourself or your family down: several days 7. Trouble concentrating on things, such as reading the newspaper or watching television: more than half the days 8. Moving or speaking so slowly that other people could have noticed. Or the opposite - being so fidgety or restless that you have been moving around a lot more than usual: not at all 9. Thoughts that you would be better off or of hurting yourself in some way: not at all Total score: 11 Depression Screening Interpretation: Positive Depression Screening Done: Yes Source: Developed by Drs. Connor Carson, Jerri Caro, Amado Elmore and colleagues, with an educational dinah from [employer] Thrive Questionnaire Date Thrive assessed: 11/13/24 I am a: Patient What is your living situation today?: I have a steady place to live Within the past 12 months, did the food you bought not last and you didn't have the money to get more?: Never true Within the past 12 months, did you worry whether your food would run out before you got money to buy more?: Never true Do you have trouble paying for medicines?: No Do you have trouble getting transportation to medical appointments?: No Do you have trouble paying your heating and electricity bill?: No Do you have trouble taking care of your child, family member or friend?: No Do you have trouble with day-to-day activities such as bathing, preparing meals, shopping, managing finances, etc.?: No Are you currently unemployed and looking for a job?: No Are you interested in more education?: No Please select the resources that you would like help with: None Currently or been in a relationship where the following occur: No concerns reported THRIVE Score: 0 AUDIT C Alcohol Use Questionnaire (AUDIT-C) 1. How often do you have a drink containing alcohol?: Never Total Score: 0 LEIA-7 AMB Questionnaire LEIA-7 Date LEIA - 7 assessed: 11/13/24 Feeling nervous, anxious, or on edge: 1 = Several days Not being able to stop or control worryin = Several days Worrying too much about different things: 1 = Several days Trouble relaxin = Several days Being so restless that it is hard to sit still: 2 = More than half the days Becoming easily annoyed or irritable: 1 = Several days Feeling afraid as if something awful might happen: 1 = Several days Total LEIA-7 score (0-4 normal; 5-9 mild; 10-14 moderate; 15-21 severe): 8 Source: Developed by Drs. Connor Carson, Jerri Caro, Amado Elmore and colleagues, with an educational dinah from [employer] Physical exam (Primary Care) Vital Signs: Last Vital Signs Temp 97.1 F 11/13/24 12:56 Pulse 104 H 11/13/24 12:56 BP 130/82 11/13/24 12:56 Pulse Ox 97 11/13/24 12:56 Oxygen Delivery Method Room Air 11/13/24 12:56 BMI result Body Mass Index 26.5 Tobacco/Smoking Status: Tobacco use Status Tobacco use date assessed 11/13/24 11/13/24 13:02 Patient Tobacco Use Status Never used Tobacco 11/13/24 13:02 e-Cigarette/Vaping Use Never Used 11/13/24 13:02 PHQ-9: PHQ-9 Score PHQ-9: Total score 11 11/13/24 13:02 Depression Screening Interpretation: Positive Thrive Assessment: Date of Thrive Assessment Date Thrive assessed 11/13/24 11/13/24 13:02 Currently or been in a relationship where the following occur: No concerns reported Const General: alert; No acute distress Eyes Conjunctivae: conjunctivae normal Resp Auscultation: clear to auscultation bilaterally Cardio Rate: regular rate Rhythm: regular rhythm GI Inspection: Yes normal to inspection Extrem General: Yes normal to inspection and No edema Coding Level of Care Code Est Pt Level 4 (11839) Diagnoses Overweight (BMI 25.0-29.9) E66.3 MDD (major depressive disorder), recurrent episode, moderate F33.1 Type 2 diabetes mellitus with hyperglycemia, without long-term current use of insulin E11.65 Diabetes mellitus care home insulin use: without intermediate card tender use Hoarding disorder F42.3 Obsessive-compulsive disorder type: hoarding disorder Hypercholesterolemia E78.00 Primary insomnia F51.01 Insomnia type: primary Assessment & Plan Assessment & Plan (1) Overweight (BMI 25.0-29.9): Code(s): E66.3 - Overweight Category: Medical Plan: Diet and exercise (2) MDD (major depressive disorder), recurrent episode, moderate: Comment: Counseling Code(s): F33.1 - Major depressive disorder, recurrent, moderate Category: Medical Plan: Continue with counseling and therapy patient is on duloxetine 30 mg once a day gabapentin 100 mg 3 times a day hydroxyzine 25 mg once a day lorazepam 3 times a day as needed.- all set (3) Type 2 diabetes mellitus with hyperglycemia: Comment: Dr. Yin Code(s): E11.65 - Type 2 diabetes mellitus with hyperglycemia Category: Medical Qualifiers: Diabetes mellitus care home insulin use: without intermediate card tender use Qualified Code(s): E11.65 - Type 2 diabetes mellitus with hyperglycemia Plan: Decrease the amount of carbohydrate intake, pasta, bread, rice and potatoes are all sugar and that is aside from all the sweet stuff, remember that fruits are good but they are Sweet also. Diet controlled (4) Obsessive compulsive disorder: Comment: PTSD held on [facility] [place] once a week April 2020 Code(s): F42.9 - Obsessive-compulsive disorder, unspecified Category: Medical Qualifiers: Obsessive-compulsive disorder type: hoarding disorder Qualified Code(s): F42.3 - Hoarding disorder Plan: Continue with counseling and therapy (5) Hypercholesterolemia: Code(s): E78.00 - Pure hypercholesterolemia, unspecified Category: Medical Plan: Avoid fried foods, chicken skin, eggs, butter margarine, pastries and meat. Be it pork or beef they have a lot of cholesterol LDL goal of less than 100. (6) Insomnia: Code(s): G47.00 - Insomnia, unspecified Category: Medical Qualifiers: Insomnia type: primary Qualified Code(s): F51.01 - Primary insomnia Plan: Continue with present medication Plan History of Present Illness The patient is a 69-year-old male presenting for a follow-up visit. He reports a recent 5-pound weight loss. His chronic conditions, including obstructive sleep apnea, ADHD, hypercholesterolemia, diabetes mellitus, hypertension, nephrolithiasis, and major depressive disorder, were discussed. His LDL cholesterol is managed to 99, and his A1c is 6.1, indicating stable control of his diabetes. Blood pressure is stable without new medication, and he remains on current psychiatric medication for depressive disorder. Previous counseling was delayed due to insurance issues but will be resumed. Health Maintenance - Cologuard test in 2022: negative - Vaccinations up to date: pneumonia, flu, tetanus, shingles - Discussed flu season precautions: advised to continue wearing a mask Social History - Reports regular exercise but less frequent due to foot pain - Current diet includes oatmeal with improvement in constipation - Resolved insurance issues will enable continuation of counseling and therapy - No issues reported with current medications compliance Review of Systems - Gastrointestinal: Reports no constipation currently; bowel movements regular - Urinary: Denies nocturia; normal frequency and color - Neurological: Denies nightmares; duloxetine working well for mood - Musculoskeletal: Reports previous foot pain has resolved Physical Exam Results - Labs: Normal blood count, mild leukocytosis, good electrolytes, good renal function, Hemoglobin A1c at 6.1, LDL cholesterol 99 - Tests: Cologuard test in 2022, negative Plan The patient will maintain current management of his chronic conditions, including obstructive sleep apnea and ADHD. Major depressive disorder will continue to be addressed with the current medication regimen, with the resumption of counseling now facilitated by insurance clarity. The target LDL cholesterol is maintained, with close monitoring of blood glucose levels to ensure dietary control of diabetes. Continued emphasis on diet and exercise is recommended for sustained weight loss. Kidney health requires regular reassessment due to nephrolithiasis history. Stability in hypertension is maintained without medication. Flu season precautions are recommended. Patient was informed and verbally consented to the use of an ambient scribe for clinic note documentation during this visit. Discussion Notes I engaged the patient in detailed discussions regarding his maintained management of obstructive sleep apnea and ADHD, and the management goals for his hypercholesterolemia, emphasizing a cholesterol target LDL level below 130. His diabetes management is satisfactory with a Hemoglobin A1c of 6.1, indicating adequate control by diet alone. Discussions confirmed that the blood pressure remains stable without additional medication. We highlighted the importance of continuing the current antidepressant regimen and reinforced the need for counseling, which will resume with resolved insurance barriers. Flu vaccinations are current, and caution is advised throughout the flu season with protective measures like mask-wearing to be observed. Patient Instructions - Continue current medications: duloxetine, gabapentin, hydroxyzine, lorazepam as needed. - Maintain dietary measures to control weight and diabetes. - Wear a mask during peak flu season as a precaution. - Follow up with counseling services now that insurance issues are resolved. - Schedule vision appointment as insurance allows. - Regularly engage in physical activity, adjusting as needed to prevent foot pain recurrence. - Monitor any new symptoms or significant changes in health, and return for reevaluation if needed. Orders: Referrals Psychiatry Referral F33.1 - Major depressive disorder, recurrent, moderate Medications: Discontinued ramelteon Discontinued Reason: Doctor's Order 8 mg PO BEDTIME PRN 30 tabs 2RF sleep F51.01 - Primary insomnia
[2024-11-13 12:56] VITALS: BP 130/82; PULSE 104; TEMP 36.2; O2SAT 97; BMI 26.5
--- OUTSIDE RECORDS SUMMARY | 2024-11-13 14:38 | XMS_ITS | Clinical Summary ---
Author Organization [employer] Address [address] [place] [address] Care Team Providers Care Lead Ingot Molder Name Role Phone Raeann Early Unavailable Unavailable Pcp, Kevin Unassigned Primary Care Provider U navailable Medications * This document contains information received from the source organization and may not represent a complete record from that organization. traZODone (Desyrel) 100 MG tablet TAKE ONE TABLET BY MOUTH AT BEDTIME NEEDED FOR INSOMNIA 11/07/2022 Active sertraline (Zoloft) 100 MG tablet Take 200 mg by mouth in the morning. 11/07/2022 Active oxyCODONE-aceta minophen (Percocet) 5-325 MG tablet 02/07/2023 Act anton mupirocin (Bactroban) 2 % ointment APPLY TO AFFECTED AREA(S) TWO TIMES A DAY FOR 5 DAYS 03/20/2022 Active methylphenidate LA (Ritalin LA) 60 MG 24 hr capsule Take 60 mg by mouth in the morning. 07/20/2022 Active metFORMIN (Glucophage) 500 MG tablet Take 500 mg by mouth in the morning. 11/07/2022 Active losartan (Cozaar) 25 MG tablet Take 25 mg by mouth in the morning. 11/07/2022 Active LORazepam (Ativan) 1 MG tablet TAKE 1 TABLET BY MOUTH 2-3 TIMES A DAY NEEDED FOR ANXIETY 11/07/2022 Active FreeStyle lancets USE DIRECTED TO CHECK BLOOD SUGAR ONCE A DAY 05/15/2022 Active hydrOXYzine HCl (Atarax) 25 MG tablet Take 25 mg by mouth if needed in the morning, at noon, and at bedtime. 11/07/2022 Active FREESTYLE LITE test strip USE DIRECTED TO CHECK BLOOD SUGAR ONCE A DAY 05/15/2022 Active gabapentin (Neurontin) 300 MG capsule Take 600 mg by mouth 3 times daily. 11/07/2022 Active buPROPion SR (Wellbutrin SR) 150 MG 12 hr tablet Take 150 mg by mouth in the morning. 11/08/2022 Active Active Problems Problem Noted Date Diagnosed Date MDD (major depressive disorder) 10/05/2022 Attention deficit hyperactiv ity disorder (ADHD), predominantly inattentive type 08/23/2022 Hoarding disorder with excessive acquisition 04/2022 Immunizations Name Administration Dates Next Due INFLUENZA VACCINE QUADRIVALE NT RECOMBINANT PRESERVATIVE FREE RIV4 07/06/2021 Influenza injectable quadriv alent IIV4 with preservative 06/26/2019,07/16/2018 Influenza injectable quadriv alent preservative free 07/20/2022 Pneumococcal Conjugate PCV 20 07/20/2022 Pneumococcal Polysaccharide PPSV23 10/05/2016 Td (adult), 5 Lf tetanus tox oid, preservative free, adsorbed 11/07/2022 Zoster, Recombinant 06/09/2018, 8,03/15/2018,12/07 Social History Tobacco Use Types Packs/Day Years Used Date Smoking Tobacco: Never Assessed Depression Answer Date Recorded Patient Health Questionnaire-9 Score 16 08/23/2022 Depression Answer Date Recorded Patient Health Questionnaire-2 Score 6 08/23/2022 Sex and Gender Information Value Date Recorded Sex Assigned at Male 09/20/2022 3:30 PM EST Legal Sex Male 8:39 PM EDT Gender Identity Male 09/20/2022 3:30 PM EST Sexual Orientation Straight 09/20/2022 3: 30 PM EST Plan of Treatment Health Maintenance Due Date Last Done Comments CT Colonography 1957 Colonoscopy 1957 Colorectal Cancer Screening 1957 FIT DNA/Cologuard 1957 FIT 1957 FOBT 1957 Lipid Panel 1957 SDOH Screening 1957 Sigmoidoscopy 1957 Alcohol/Substance Use Screening 1969 Tobacco Screening 1969 Hepatitis C Screening 1975 DTaP/Tdap/Td Vaccines (1 - Tdap) 11/08/2022 11/07/2022 Depression Monitoring (PHQ-9) 02/21/2023 08/23/2022, 08/23/2022 Depression Screening 08/23/2023 08/23/2022, 08/23/20 COVID-19 Vaccine ( season) 2024 11/19/2021, 01/07/2021, 12/10/2020 Influenza Vaccine (#1) 2024 , 07/06/2021, 06/26/2019, Additional history exists RSV Patients and Patients Aged 60 years or older (1 - 1-dose 75+ series) 2032 Zoster Vaccines Completed 06/09/2018, 03/17, 03/15/2018, Additional history exists Pneumococcal Vaccine: 50+ Years Completed 07/20/2022, 10/05/2016 HIB Vaccines Aged Out No longer eligi ble based on patient's age to complete this topic HPV Vaccines Aged Out No longer eligi ble based on patient's age to complete this topic Hepatitis A Vaccines Aged Out No long er eligible based on patient's age to complete this topic Hepatitis B Vaccines Aged Out No long er eligible based on patient's age to complete this topic IPV Vaccines Aged Out No longer eligi ble based on patient's age to complete this topic Meningococcal Vaccine Aged Out No amanda pito eligible based on patient's age to complete this topic RSV under 20 months Aged Out No longe r eligible based on patient's age to complete this topic Rotavirus Vaccines Aged Out No longer eligible based on patient's age to complete this topic Insurance [facility] Care Teams Lead Ingot Molder Relationship Specialty Start Date End Date PcpKevin Unassigned PCP - General Family Medicine 01/14/23 Raeann Early LICSW Leadership Program Intern Behavioral Health 08/23/22
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
== END 2024-11-13 13:23 | disposition home or self-care (01) ==
PROVIDERS: PCP Internal Medicine; Visit Provider Internal Medicine
DX: E66.3 Overweight (principal); F33.1 Major depressive disorder, recurrent, moderate; E11.65 Type 2 diabetes mellitus with hyperglycemia; F42.3 Hoarding disorder; E78.00 Pure hypercholesterolemia, unspecified; F51.01 Primary insomnia

== ENCOUNTER → 2024-11-13 12:30 | Outpatient (BNVA) | payer MEDICARE, SELFPAY | PROVIDERS: PCP Internal Medicine; Visit Provider Internal Medicine | DX: E66.3 Overweight (principal); F33.1 Major depressive disorder, recurrent, moderate; E11.65 Type 2 diabetes mellitus with hyperglycemia; F42.3 Hoarding disorder; E78.00 Pure hypercholesterolemia, unspecified; F51.01 Primary insomnia | CPT/HCPCS: 99212 ==

== ENCOUNTER 2025-02-02 14:22 | Outpatient (AMB) | payer MEDICARE, SELFPAY ==
--- NOTE | 2025-02-02 15:00 | MHC.PC.OV ---
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 per policy Accompanied by: Self / Same As Patient Allergies bacitracin Allergy (Unknown, Verified 02/02/25 15:01) Rash lisinopril Allergy (Unknown, Verified 02/02/25 15:01) Rash gabapentin Adverse Reaction (Intermediate, Verified 02/02/25 15:01) leg swelling codeine [Codeine] Adverse Reaction (Mild, Verified 02/02/25 15:01) Nausea and Vomiting trazodone Adverse Reaction (Intermediate, Uncoded 11/13/24 12:55) night mare Tobacco use date assessed: 02/02/25 Fall risk assessment: No Falls in past year Last assessed Fall Risk: 02/02/25 Dental Screening Dental Screen Date: 11/13/24 HPI 3 month f/u HPI Details 2 x a week while in bed vision changes then jerks [facility] Medical History Colon cancer screening Colonoscopy refused Hospital discharge follow-up Chest pain not due to acute coronary syndrome Acute anxiety Chronic post-traumatic stress disorder (PTSD) Anxiety Annual physical exam Diabetic foot Burn Left renal stone Substance abuse SLE (systemic lupus erythematosus related syndrome) Diverticular disease Type 2 diabetes mellitus with hyperglycemia Diabetic neuropathy Hypercholesterolemia Obsessive compulsive disorder Obstructive sleep apnea Insomnia Surgical History Hx of colonoscopy S/P tonsillectomy History of hammertoe correction Family History Father CVD (cardiovascular disease) Mother Diabetes Sister Bladder cancer Other ADHD Social History Household Members: None Household Members Other:: None Housing: Condominium Do you presently have visiting nurse or other home services: No Alcohol intake: former Patient Tobacco Use Status: Never used Tobacco e-Cigarette/Vaping Use: Never Used Second Hand Smoke Exposure: No service: No Current occupational status: employed Sexual orientation: Straight/Heterosexual Cognitive needs: Yes Hearing needs: Yes Vision needs: Yes Questionnaire PHQ-9 Over the last 2 weeks, how often have you been bothered by any of the following problems? 1. Little interest or pleasure in doing things: nearly every day 2. Feeling down, depressed, or hopeless: nearly every day 3. Trouble falling or staying asleep, or sleeping too much: nearly every day 4. Feeling tired or having little energy: nearly every day 5. Poor appetite or overeating: nearly every day 6. Feeling bad about yourself - or that you are a failure or have let yourself or your family down: nearly every day 7. Trouble concentrating on things, such as reading the newspaper or watching television: nearly every day 8. Moving or speaking so slowly that other people could have noticed. Or the opposite - being so fidgety or restless that you have been moving around a lot more than usual: several days 9. Thoughts that you would be better off or of hurting yourself in some way: not at all Total score: 22 Depression Screening Interpretation: Positive Depression Screening Done: Yes Source: Developed by Drs. Connor Carson, Jerri Caro, Amado Elmore and colleagues, with an educational dinah from [employer]. Thrive Questionnaire Date Thrive assessed: 02/01/25 I am a: Patient What is your living situation today?: I have a steady place to live Within the past 12 months, did the food you bought not last and you didn't have the money to get more?: Never true Within the past 12 months, did you worry whether your food would run out before you got money to buy more?: Never true Do you have trouble paying for medicines?: No Do you have trouble getting transportation to medical appointments?: No Do you have trouble paying your heating and electricity bill?: No Do you have trouble taking care of your child, family member or friend?: No Do you have trouble with day-to-day activities such as bathing, preparing meals, shopping, managing finances, etc.?: Yes Are you currently unemployed and looking for a job?: No Are you interested in more education?: Yes Please select the resources that you would like help with: Daily support and Education Currently or been in a relationship where the following occur: No concerns reported THRIVE Score: 0 AUDIT C Alcohol Use Questionnaire (AUDIT-C) 1. How often do you have a drink containing alcohol?: Never 3. How often do you have six or more drinks on one occasion?: Never Total Score: 0 LEIA-7 AMB Questionnaire LEIA-7 Date LEIA - 7 assessed: 11/13/24 Feeling nervous, anxious, or on edge: 3 = Nearly every day Not being able to stop or control worryin = Several days Worrying too much about different things: 1 = Several days Trouble relaxin = Several days Being so restless that it is hard to sit still: 0 = Not at all Becoming easily annoyed or irritable: 1 = Several days Feeling afraid as if something awful might happen: 2 = More than half the days Total LEIA-7 score (0-4 normal; 5-9 mild; 10-14 moderate; 15-21 severe): 9 Source: Developed by Drs. Connor Carson, Jerri Caro, Amado Elmore and colleagues, with an educational dinah from [employer]. Physical exam (Primary Care) Vital Signs: Last Vital Signs Temp 97.3 F 02/02/25 15:01 Pulse 63 02/02/25 15:01 BP 120/68 02/02/25 15:01 Pulse Ox 98 02/02/25 15:01 Oxygen Delivery Method Room Air 02/02/25 15:01 BMI result Body Mass Index 26.0 Tobacco/Smoking Status: Tobacco use Status Tobacco use date assessed 02/02/25 02/02/25 15:06 Patient Tobacco Use Status Never used Tobacco 02/02/25 15:00 e-Cigarette/Vaping Use Never Used 02/02/25 15:00 PHQ-9: PHQ-9 Score PHQ-9: Total score 22 02/02/25 15:32 Depression Screening Interpretation: Positive Thrive Assessment: Date of Thrive Assessment Date Thrive assessed 02/01/25 02/02/25 15:00 Currently or been in a relationship where the following occur: No concerns reported Const General: alert; No acute distress Eyes Conjunctivae: conjunctivae normal Resp Auscultation: clear to auscultation bilaterally Cardio Rate: regular rate Rhythm: regular rhythm GI Inspection: Yes normal to inspection Extrem General: Yes normal to inspection and No edema Results AMB Hemoglobin A1c AMB Hemoglobin A1c 6.3 % Last Edit by JULES Henderson on 02/02/25 15:15 Results Reviewed Results Reviewed: Laboratory Last Values Hgb A1c (Clinic) 6.3 % (4.0-6.0) H 02/02/25 15:01 Coding Level of Care Code Est Pt Level 4 (68679) Complex EM visit Add On G2211 Diagnoses Type 2 diabetes mellitus with hyperglycemia, without long-term current use of insulin E11.65 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 Hemoglobin A1c goal of less than 6.5. Patient is diet controlled (2) Hypercholesterolemia: Code(s): E78.00 - Pure hypercholesterolemia, unspecified Category: Medical Plan: Avoid fried foods, chicken skin, eggs, butter margarine, pastries and meat. Be it pork or beef they have a lot of cholesterol October last blood work LDL goal of less than 100 and triglyceride of less than 150 diet control (3) Hypertension: Code(s): I10 - Essential (primary) hypertension Category: Medical Qualifiers: Hypertension type: primary hypertension Qualified Code(s): I10 - Essential (primary) hypertension Plan: Continue with blood pressure medication. Decrease salt intake and exercise patient is diet controlled now (4) MDD (major depressive disorder), recurrent episode, moderate: Comment: Counseling Code(s): F33.1 - Major depressive disorder, recurrent, moderate Category: Social Hx Plan: Continue with counseling and therapy Plan History of Present Illness The patient is a 69-year-old male presenting with complaints of vision alterations accompanied by muscle spasms while engaged in reading activities. The episodes are sporadic, occurring a few times each week, and have persisted for approximately a year without progressive worsening. The patient denies syncope, bowel, or urinary incontinence. The patient has undergone previous eye examinations without the identification of any visual pathology. He has a significant medical history of chronic conditions including obstructive sleep apnea (intolerant to CPAP), ADHD, OCD, nephrolithiasis, hypercholesterolemia, and diet-controlled diabetes and hypertension. The control of diabetes and hyperlipidemia is confirmed through diet, with target LDL goals met as of his last lab results in June. Health Maintenance - Cologuard test completed in November 2022. - Last blood work performed in June with normal counts and electrolytes, hemoglobin A1c was 6.1%. - LDL cholesterol at 99 mg/dL, meeting the target goal. - Diabetes managed with a goal A1c of less than 6.5%. - Lifestyle and dietary management for cholesterol and blood pressure. Social History - Functional status: Active, without reported limitations. - Exercise: No specific exercise regimen detailed. - Diet: Managed to control diabetes and hypercholesterolemia. - Frequent reading suggests engagement in sedentary activities. Review of Systems - Neurological: Reports vision changes and muscle spasms; Denies syncope, loss of bowel or bladder control. - Ophthalmic: Denies issues according to last eye exam. - Genitourinary: Denies recent changes in urinary function. - Gastrointestinal: Denies abdominal pain or irregular bowel movements. Physical Exam - Neurological- Able to follow simple commands, squeezes fingers without difficulty; coordinated upper and lower limb maneuvers performed satisfactorily. - Musculoskeletal- No evidence of extremity swelling; adequate range of motion demonstrated. Results - Labs: June results normal blood count, normal electrolytes, hemoglobin A1c 6.1%, LDL 99 mg/dL. Plan I discussed with the patient the need for further neurological evaluation to explore potential causes of his described vision changes and muscle spasms, possibly ruling out seizures. We will obtain complete blood work to analyze metabolic functions. The patient?s chronic conditions, including obstructive sleep apnea not tolerating CPAP, ADHD, OCD, and nephrolithiasis, will be monitored with dietary and lifestyle interventions. Diabetes and hypercholesterolemia remain under watch with successful dietary intervention. The patient's blood pressure is well-controlled through lifestyle changes. Continued monitoring and counseling on lifestyle modification will remain pivotal in the management strategy. Patient was informed and verbally consented to the use of an ambient scribe for clinic note documentation during this visit. Discussion Notes I advised the patient on the significance of neurological evaluation due to the ongoing vision and spasm episodes. We discussed potential risks of seizures and the need for comprehensive blood work to advance understanding of his condition. Clear instructions were provided regarding the importance of dietary management in controlling his chronic conditions and follow-up was planned to review test results. The patient is comfortable with the proposed management strategy, adhering to recommended health maintenance interventions. Patient Instructions - Continue with current dietary management for blood pressure, cholesterol, and diabetes. - Follow up with blood work as advised. - Monitor for any changes in vision or frequency of muscle spasms. - Report any new or worsening symptoms immediately. - Schedule next eye examination as planned. Orders: Orders AMB Hemoglobin A1c Today E11.65 - Type 2 diabetes mellitus with hyperglycemia Complete Blood Count Auto Diff 5 Months E11.65 - Type 2 diabetes mellitus with hyperglycemia Thyroid Stimulating Hormone 5 Months E11.65 - Type 2 diabetes mellitus with hyperglycemia Vitamin B12 and Folate 5 Months E11.65 - Type 2 diabetes mellitus with hyperglycemia Hemoglobin A1c 5 Months E11.65 - Type 2 diabetes mellitus with hyperglycemia Creatinine Urine 5 Months E11.65 - Type 2 diabetes mellitus with hyperglycemia Complete Blood Count Auto Diff Today G25.3 - Myoclonus Comprehensive Met. Panel 5 Months E11.65 - Type 2 diabetes mellitus with hyperglycemia Free T4 (Free Thyroxine) 5 Months E11.65 - Type 2 diabetes mellitus with hyperglycemia Lipid Panel 5 Months E11.65 - Type 2 diabetes mellitus with hyperglycemia, E78.00 - Pure hypercholesterolemia, unspecified Prostate Specific Antigen Scr 5 Months E11.65 - Type 2 diabetes mellitus with hyperglycemia Microalbumin, Random (w Creat) 5 Months E11.65 - Type 2 diabetes mellitus with hyperglycemia CT head/brain wo IV con Today G25.3 - Myoclonus Comprehensive Met. Panel Today G25.3 - Myoclonus Thyroid Stimulating Hormone Today G25.3 - Myoclonus Free T4 (Free Thyroxine) Today G25.3 - Myoclonus UA CC w/rflx Micro + Cult Today G25.3 - Myoclonus, R30.0 - Dysuria EEG ambulatory Today G25.3 - Myoclonus
[2025-02-02 15:01] VITALS: BP 120/68; PULSE 63; TEMP 36.3; O2SAT 98; BMI 26.0
--- OUTSIDE RECORDS SUMMARY | 2025-02-02 15:47 | XMS_ITS | Clinical Summary ---
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 Immunizations Immunization Administration Dates Next Due INFLUENZA VACCINE QUADRIVALE [...] Vaccines (1 - Tdap) 11/08/2022 11/07/2022 Depression Screening 08/23/2023 08/23/2022, 08/23/20 COVID-19 Vaccine ( - season) 2024 11/19/2021, 01/07/2021, 12/10/2020 Influenza Vaccine [...] patient's age to complete this topic Meningococcal B Vaccine Aged Out No l onger eligible based on patient's age to complete this topic Meningococcal Vaccine Aged Out No amanda pito eligible based on patient's age to complete this topic RSV under 20 months Aged Out No longe r eligible based on patient's age to complete this topic Rotavirus Vaccines Aged Out No longer eligible based on patient's age to complete this topic Insurance [facility] Care Teams [employer] Architect Relationship Specialty Start Date End Date PcpKevin Unassigned PCP - General Family Medicine 01/14/23 Raeann Early LICSW Keeper Head Behavioral Health 08/23/22
--- OUTSIDE RECORDS SUMMARY | 2025-02-02 15:47 | XMS_ITS | Patient Health Record ---
[facility] Address [address] [place] [address] Care Team Providers Care Moving Consultant Name Role Phone Kerline Chadwick Primary Care Provider Unavailabl e Black, Miguelina Unavailable [phone] Allergies Allergen (clinical drug ingredient) Drug/Non Drug Allergy documented on EMR Reaction Allergy Type Onset Date Status sulfamethoxazole / trimethoprim Bactrim rash Drug Allergy Active codeine Codeine rash Drug Allergy Active Reason For Referral No Information Medications Medication SIG (Take, Route, Frequency, Duration) Notes Start Date End Date Status Zoloft Active Pioglitazone HCl 15 MG 1 tablet Orally O nce a day for 30 day(s) Active Percocet 5-325 MG 1 tablet as needed Orally every 6 hrs for as needed 05/10/2014 Not-Taking Triazolam 0.25 MG 1 tablet at bedtime as needed Orally Once a day Active Cephalexin 500 MG 1 capsule Orally twi ce a day for 10 days 03/16/2022 Not-Taking Iodosorb 0.9 % as directed External ly Apply to wound daily and cover with clean bandage for 30 days 03/14/2015 Not-Taking Gabapentin 300 MG take two capsules by mouth three times a day Orally three times a day for 30 days Active Work Note . . . pt out of work 04/13/2015 due to right foot injury 04/13/2015 Not-Taking Mupirocin 2 % 1 application [employer]n [employer] ally Twice a day for 5 day(s) 01/08/2022 Active Work Note . . . Pt out of work 09/29/14 due to feet issues for . 09/28/2014 Not-Taking Percocet 5-325 MG 1 tablet as needed Orally every 6 hrs for 10 days 02/27/2022 Active Work Note . . . pt may return to work november 25 for . 11/18/2014 Not-Taking Extra Depth Orthopedic Shoes (1 Pair) with Customized Heat Molded Multidensity Innersoles (3 Pair) as directed Dx: NIDDM/Polyneuropathy (E11.42), Hammertoe Foot Deformity (M20.41,M20.42), Preulcerative Skin Lesion(s) (L85.1 12/08/2020 Not-Taking Work Note . . . pt out of work u ntil further notice sx scheduled Sept Not-Taking Extra Depth Orthopedic Shoes (1 Pair) with Customized Heat Molded Multidensity Innersoles (3 Pair) as directed Dx: NIDDM/Polyneuropathy (E11.42), Hammertoe Foot Deformity (M20.41,M20.42), Preulcerative Skin Lesion(s) (L85.1 02/15/2016 Not-Taking Augmentin 875-125 MG 1 tablet Orally Twi ce a day for 10 day(s) 04/18/2015 Not-Taking Gabapentin 300 MG 1 capsule Orally 1 i n the am 2 at midday and 2 at bedtime for 30 day(s) 06/08/2022 Active Regranex 0.01 % 1 application to affected area Externally Once a day 04/13/2015 Not-Taking Percocet 5-325 MG 1 tablet as needed Orally every 6 hrs for 7 days 12/05/2015 Not-Taking Work Note . . . pt out of work u ntil further notice 04/25/2015 Not-Taking Percocet 5-325 MG 1 tablet as needed Orally every 6 hrs for 14 days Not-Taking Avapro Not-Taking Extra Depth Orthopedic Shoes (1 Pair) with Customized Heat Molded Multidensity Innersoles (3 Pair) as directed Dx: NIDDM/Polyneuropathy (E11.42), Hammertoe Foot Deformity (M20.41,M20.42), Preulcerative Skin Lesion(s) (L85.1 07/14/2018 Not-Taking Extra Depth Orthopedic Shoes (1 Pair) with Customized Heat Molded Multidensity Innersoles (3 Pair) as directed Dx: NIDDM/Polyneuropathy (E11.42), Hammertoe Foot Deformity (M20.41,M20.42), Preulcerative Skin Lesion(s) (L85.1 09/03/2019 Not-Taking Percocet 5-325 MG 1 tablet as needed Orally every 6 hrs for as needed 05/05/2018 Not-Taking Fluticasone Propionate 0.005 % 1 application to affected area Externally Twice a day Not-Taking Keflex 500 500 MG 1 capsule Orally herberth ry 12 hrs for 10 day(s) 12/14/2019 Not-Taking Augmentin 500-125 MG 1 tablet Orally herberth ry 8 hrs for 7 day(s) 08/06/2019 Not-Taking Ritalin Active Keflex 500 MG 1 capsule Orally herberth ry 12 hrs for 10 day(s) 05/27/2015 Not-Taking Mupirocin 2 % APPLY TO THE AFFECTE D AREA THREE TIMES A DAY NEEDED for 30 Active Naprosyn 375 MG 1 tablet Orally Twic e a day for 30 day(s) 05/30/2015 Not-Taking Iodosorb Not-Taking Metformin & Diet Manage Prod 500 MG as directed Orally Active Naprosyn 375 MG 1 tablet Orally Twic e a day for 30 day(s) 05/24/2015 Not-Taking Extra Depth Orthopedic Shoes (1 Pair) with Customized Heat Molded Multidensity Innersoles (3 Pair) as directed Dx: NIDDM/Polyneuropathy (E11.42), Hammertoe Foot Deformity (M20.41,M20.42), Preulcerative Skin Lesion(s) (L85.1 04/01/2020 Not-Taking Percocet 5-325 MG 1 tablet as needed Orally every 6 hrs for as needed 05/24/2015 Not-Taking Immunizations Vaccine Route Administration Date Status Comme nts COVID-19 Moderna Vaccine Unknown 01/07/2021 Administere d 1st 12/10/2020 2nd 01/07/2021 Influenza Unknown 07/26/2015 Administered Influenza Unknown 10/29/2016 Refused Influenza Unknown 06/16/2018 Administered Influenza Unknown 06/26/2019 Administered Influenza Unknown 07/27/2020 Administered Influenza Unknown 07/06/2021 Administered Pneumococcal Unknown 06/25/2016 Administered Social History Tobacco Use: Social History Observation Description Date Details (start date - stop date) Never Smoker NA - NA Tobacco Use/Smoking Question Answer Notes Are you a: nonsmoker Additional Findings: Tobacco Non-User Current no n-smoker Alcohol Screen Question Answer Notes Did you have a drink containing alcohol in the p ast year? No Points 0 Interpretation Negative Tobacco use other than smoking: Question Answer Notes Are you an other tobacco user? 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) Diabetes mellitus due to underlying condition with foot ulcer (E08.621) Active confirmed Problem Polyneuropathy due to type 2 diabetes mellitus (983347891) Type 2 diabetes mellitus with diabetic polyneuropathy (E11.42) Active confirmed Problem Chronic ulcer of foot (734894389) Non-pressure chronic ulcer of right heel and midfoot limited to breakdown of skin (L97.411) Active confirmed Problem Non-pressure chronic ulcer of left heel and midfoot limited to breakdown of skin (L97.421) Active confirmed Problem Non-pressure ulcer lower limb (757762701) Non-pressure chronic ulcer of other part of unspecified foot with fat layer exposed (L97.502) Active confirmed Problem Non-pressure ulcer lower limb (750986795) Non-pressure chronic ulcer of other part of left foot limited to breakdown of skin (L97.521) Active confirmed Problem Chronic ulcer of foot (890314860) Non-pressure chronic ulcer of other part of left foot with fat layer exposed (L97.522) Active confirmed Problem Non-pressure ulcer lower limb (420216863) Non-pressure chronic ulcer of other part of right foot limited to breakdown of skin (L97.511) Active confirmed Problem Acquired hammer toe of right foot (9243084263532805 ) Other hammer toe(s) (acquired), right foot (M20.41) Active confirmed Problem Acquired hammer toe of left foot (9127490928109417 ) Other hammer toe(s) (acquired), left foot (M20.42) Active confirmed Problem Joint contracture of the ankle and/or foot (251236625) Flexion contracture of joint of left foot (M24.575) Active confirmed Plan Of Treatment Pending Test Test Name Order Date X ray : Foot, right 2V 09/28/2011 X ray : Foot, right 2V 10/08/2011 X ray : Foot, right 2V 10/17/2011 X ray : Foot, right 2V 11/02/2011 X ray : Foot, right 2V 02/07/2012 X ray : Foot, left 3V 04/13/2015 X ray : Foot, right 3V 12/10/2011 04595-GSORIKU NAIL, 6 OR MORE 06/19/2011 47306-GDJJMCZ NAIL, 6 OR MORE 01/14/2012 96137-MDMPAGK NAIL, 6 OR MORE 05/08/2012 95654-EAGMEZE NAIL, 6 OR MORE 07/28/2012 44611-EAXPOEL NAIL, 6 OR MORE 10/16/2012 86143-HIFMONP NAIL, 6 OR MORE 01/12/2013 81232-BNLUMZD NAIL, 6 OR MORE 06/16/2012 18935-VXECUNZ NAIL, 6 OR MORE 03/26/2013 75251-NJJELTA NAIL, 6 OR MORE 06/01/2013 95151-TZSGJDX NAIL, 6 OR MORE 08/18/2013 96547-DJUSPTI NAIL, 6 OR MORE 10/26/2013 28681-MYLUTBV NAIL, 6 OR MORE 02/21/2015 59609-SFVGBOW NAIL, 6 OR MORE 12/05/2015 52162-KSQYGHG NAIL, 6 OR MORE 02/15/2016 90873-WDLKXOM NAIL, 6 OR MORE 05/17/2016 42530-XSTTGZR NAIL, 6 OR MORE 08/13/2016 79122-XIHUPWZ NAIL, 6 OR MORE 10/29/2016 99133-ARGAWNH NAIL, 6 OR MORE 07/04/2017 14821-TUWLGBQ NAIL, 6 OR MORE 04/12/2014 25817-AXSHFMJ NAIL, 6 OR MORE 07/12/2014 41549-HHDSTUD NAIL, 6 OR MORE 02/11/2014 96167-URDJFCK NAIL, 6 OR MORE 11/18/2014 36089-NVONMGX NAIL, 6 OR MORE 01/14/2017 34001-FWVJMOB NAIL, 6 OR MORE 09/24/2017 28193-ICOTUCD NAIL, 6 OR MORE 12/02/2017 15919-NRKWUFS NAIL, 6 OR MORE 02/03/2018 64998-XUXAOPE NAIL, 6 OR MORE 05/05/2018 41620-VEMQHHZ NAIL, 6 OR MORE 07/14/2018 05034-IRSOTLT NAIL, 6 OR MORE 09/29/2018 59232-APDTHFA NAIL, 6 OR MORE 12/08/2018 54586-GVUUIWI NAIL, 6 OR MORE 02/23/2019 98645-RUBTJHA NAIL, 6 OR MORE 04/27/2019 33132-JZWKZGG NAIL, 6 OR MORE 05/25/2019 22314-WGKRNYZ NAIL, 6 OR MORE 06/22/2019 98758-NVRGVVM NAIL, 6 OR MORE 08/06/2019 13237-PACXPBU NAIL, 6 OR MORE 11/03/2019 39930-SFZDYYA NAIL, 6 OR MORE 11/23/2019 56589-SPIMIDX NAIL, 6 OR MORE 01/05/2020 68937-OSOBYWM NAIL, 6 OR MORE 04/01/2020 93477-KRQDWJM NAIL, 6 OR MORE 06/09/2020 58652-WFGBZAG NAIL, 6 OR MORE 10/20/2020 97709-FIENSII NAIL, 6 OR MORE 11/10/2020 71457-VGMNLXO NAIL, 6 OR MORE 02/27/2021 55140-GHETAIH NAIL, 6 OR MORE 12/08/2020 73573-ZTFBOXT NAIL, 6 OR MORE 07/06/2021 96162-MAIMOKC NAIL, 6 OR MORE 10/30/2021 89396-RPNNCRL NAIL, 6 OR MORE 12/13/2021 48973-TJLQAUW NAIL, 6 OR MORE 02/05/2022 64501-LFLCUAC NAIL, 6 OR MORE 04/12/2022 35113-AHWCJWZ NAIL, 6 OR MORE 05/07/2022 06846-Iohsvvtn Plate 01/05/2020 77801-Qmqwlhsm Plate 02/27/2021 90500-Npmftmhh Plate 09/03/2019 12426-Ihvgvedn Plate 07/07/2019 99238-Abphbpwf Plate 09/29/2018 03638-Wczbdlmm Plate 07/14/2018 70017-Ptorkiji Plate 02/03/2018 31389-Bnpdrbrm Plate 09/24/2017 25614-Imwiooqe Plate 02/21/2015 94755-Pdykzktf Plate 02/11/2014 49829-Swmhmtjx Plate 07/12/2014 26084-Cmpmcxfq Plate 04/12/2014 34940-Fidnmzvt Plate 05/10/2014 13379-Tampcogn Plate 01/14/2017 85409-Jimiaocs Plate 10/29/2016 08923-Qilbkfej Plate 08/13/2016 99423-Jvkzilwz Plate 09/26/2015 00471-Rrmbpunh Plate 07/04/2015 88342-Hrhpgiql Plate 10/26/2013 49894-Kgxkzpbl Plate 08/18/2013 62671-Xbtxpdvl Plate 06/01/2013 92054-Emobhyne Plate 03/26/2013 49663-Hmrqalya Plate 06/16/2012 00034-Xyqavuok Plate 01/12/2013 43022-Qzprjdvm Plate 10/16/2012 87643-Mbostqry Plate 07/28/2012 67111-Pigmqrly Plate 05/08/2012 93233- Debride <25 sq cm 06/16/2012 74160- Debride <25 sq cm 05/08/2012 57226- Debride <25 sq cm 07/28/2012 13805- Debride <25 sq cm 10/16/2012 57937- Debride <25 sq cm 07/31/2011 81250- Debride <25 sq cm 06/19/2011 29966- Debride <25 sq cm 09/25/2011 73602- Debride <25 sq cm 11/16/2011 49665- Debride <25 sq cm 01/12/2013 46809- Debride <25 sq cm 06/01/2013 75239- Debride <25 sq cm 03/26/2013 45878- Debride <25 sq cm 08/18/2013 12335- Debride <25 sq cm 01/04/2014 70912- Debride <25 sq cm 02/11/2014 66317- Debride <25 sq cm 10/26/2013 50343- Debride <25 sq cm 03/29/2015 89734- Debride <25 sq cm 06/20/2015 13548- Debride <25 sq cm 03/11/2014 09718- Debride <25 sq cm 05/09/2015 24357- Debride <25 sq cm 10/29/2016 82590- Debride <25 sq cm 01/14/2017 89775- Debride <25 sq cm 07/04/2017 75682- Debride <25 sq cm 09/24/2017 73530- Debride <25 sq cm 05/10/2014 76069- Debride <25 sq cm 06/07/2014 45765- Debride <25 sq cm 07/12/2014 93165- Debride <25 sq cm 04/12/2014 54980- Debride <25 sq cm 08/16/2014 39403- Debride <25 sq cm 02/21/2015 67562- Debride <25 sq cm 01/24/2015 16806- Debride <25 sq cm 12/17/2014 66091- Debride <25 sq cm 11/18/2014 64900- Debride <25 sq cm 07/20/2019 47511- Debride <25 sq cm 06/08/2019 40715- Debride <25 sq cm 06/22/2019 29715- Debride <25 sq cm 02/23/2019 89560- Debride <25 sq cm 09/18/2019 35660- Debride <25 sq cm 10/02/2019 11045- Debride <25 sq cm 10/19/2019 79798- Debride <25 sq cm 11/03/2019 52923- Debride <25 sq cm 08/19/2019 00407- Debride <25 sq cm 11/23/2019 04362- Debride <25 sq cm 12/14/2019 73780- Debride <25 sq cm 07/06/2021 82957- Debride <25 sq cm 12/08/2020 01417- Debride <25 sq cm 11/10/2020 10829- Debride <25 sq cm 10/20/2020 06788- Debride <25 sq cm 01/18/2020 78812- Debride <25 sq cm 04/01/2020 71759- Debride <25 sq cm 06/21/2022 93964- Debride <25 sq cm 04/23/2022 89598- Debride <25 sq cm 05/07/2022 81595- Debride <25 sq cm 04/02/2022 99389- Debride <25 sq cm 04/12/2022 01589- Debride <25 sq cm 01/08/2022 38546- Debride <25 sq cm 02/05/2022 57734- Debride <25 sq cm 12/13/2021 53013- Debride <25 sq cm 10/30/2021 91463-NLPGSKA SKIN/TISSUE 12/13/2021 21217-XDGEMVS SKIN/TISSUE 12/07/2019 87581-ZMSBNTB SKIN/TISSUE 09/03/2019 95001-IKZIIPQ SKIN/TISSUE 08/06/2019 56483-LLAMWEB SKIN/TISSUE 08/19/2019 00621-YTLUVQF SKIN/TISSUE 04/27/2019 56555-ZPUVEWN SKIN/TISSUE 05/25/2019 00063-ZBKWCHR SKIN/TISSUE 07/07/2019 36799-KZQQERR SKIN/TISSUE 07/20/2019 69622-HITXDYX SKIN/TISSUE 01/24/2015 95317-UYTAQOH SKIN/TISSUE 09/20/2014 41166-TYTKYTE SKIN/TISSUE 11/23/2013 90726-GVOJKAZ SKIN/TISSUE 05/17/2015 81168-KKOWTIV SKIN/TISSUE 05/24/2015 92181-FXCLXDE SKIN/TISSUE 03/14/2015 36625-SLLCLQQ SKIN/TISSUE 06/01/2013 98598-FPTKWLP SKIN/TISSUE 09/25/2011 06863-BXTEEFN SKIN/TISSUE 05/10/2011 59829-JWIOKYU SKIN/TISSUE 08/16/2011 55183-ZUGWSXM SKIN/TISSUE 08/31/2011 88290-MEMNLSY SKIN/TISSUE 07/19/2011 61810 I&D ABSCESS- SIMPLE,SINGLE 014 61666 I&D ABSCESS- SIMPLE,SINGLE 013 75834 I&D ABSCESS- SIMPLE,SINGLE 014 62611 I&D ABSCESS- SIMPLE,SINGLE 014 69427 I&D ABSCESS- SIMPLE,SINGLE 014 43808 I&D ABSCESS- SIMPLE,SINGLE 019 90198- I&D ABSCESS-COMPLICATED,MULTI 43132- I&D ABSCESS-COMPLICATED,MULTI 30253- I&D ABSCESS-COMPLICATED,MULTI 06785- I&D ABSCESS-COMPLICATED,MULTI 11/2012 33458- I&D ABSCESS-COMPLICATED,MULTI 06/2014, J0702- INJECT TENDON ORIGIN/INSER T 10/26/2013, J0702- INJECT TENDON ORIGIN/INSER T 08/18/2013, J0702- INJECT TENDON ORIGIN/INSER T 02/11/2014, J0702- INJECT TENDON ORIGIN/INSER T 04/12/2014, J0702- INJECT TENDON ORIGIN/INSER T 07/12/2014, J0702- INJECT or DRAIN, JOINT/BUR SA 07/12/2014, J0702- INJECT or DRAIN, JOINT/BUR SA 04/12/2014, J0702- INJECT or DRAIN, JOINT/BUR SA 08/18/2013, J0702- INJECT or DRAIN, JOINT/BUR SA 02/11/2014, J0702- INJECT or DRAIN, JOINT/BUR SA 10/26/2013 55501-OTAG SKIN LESIONS, OVER 4 08/18/20 13 92153-HHAC SKIN LESIONS, OVER 4 10/26/19 14 34471-BYUC SKIN LESIONS, OVER 4 06/01/20 13 73647-JGJR SKIN LESIONS, OVER 4 01/13/20 13 07253-OZWX SKIN LESIONS, OVER 4 06/16/20 12 38784-ZFCX SKIN LESIONS, OVER 4 03/26/20 13 79959-UGGI SKIN LESIONS, OVER 4 01/14/20 12 95131-PTBI SKIN LESIONS, OVER 4 10/16/19 13 55011-GHZQ SKIN LESIONS, OVER 4 07/28/20 12 83963-XUUL SKIN LESIONS, OVER 4 05/08/20 12 83525-FLJS SKIN LESIONS, OVER 4 04/12/20 14 47355-OQFR SKIN LESIONS, OVER 4 07/12/20 14 42523-VLRA SKIN LESIONS, OVER 4 02/12/20 14 94269-UGJE SKIN LESIONS, OVER 4 11/19/19 15 57883-RRHU SKIN LESIONS, OVER 4 02/22/20 15 22129-OTVM SKIN LESIONS, OVER 4 02/15/20 16 53887-DXDP SKIN LESIONS, OVER 4 09/24/19 18 09633-QKCL SKIN LESIONS, OVER 4 01/15/20 17 24786-LTJA SKIN LESIONS, OVER 4 12/05/19 16 32960-USFR SKIN LESIONS, OVER 4 05/17/20 16 42643-NIQR SKIN LESIONS, OVER 4 10/29/19 77176-TCHL SKIN LESIONS, OVER 4 08/13/20 16 02097-IPPV SKIN LESIONS, OVER 4 01/05/20 08495-FTZI SKIN LESIONS, OVER 4 11/23/19 06251-QGIO SKIN LESIONS, OVER 4 09/03/20 61130-WFLI SKIN LESIONS, OVER 4 11/03/19 66240-HNLJ SKIN LESIONS, OVER 4 04/01/20 80368-QTFO SKIN LESIONS, OVER 4 10/20/19 21355-FXEP SKIN LESIONS, OVER 4 06/09/20 70522-ATRD SKIN LESIONS, OVER 4 11/10/19 95324-DJYE SKIN LESIONS, OVER 4 07/06/20 25624-AONY SKIN LESIONS, OVER 4 08/06/20 04032-HGZG SKIN LESIONS, OVER 4 06/22/20 34219-DUDD SKIN LESIONS, OVER 4 05/25/20 88172-MZPP SKIN LESIONS, OVER 4 04/27/20 89158-WDQN SKIN LESIONS, OVER 4 12/03/19 18 67866-SJTU SKIN LESIONS, OVER 4 07/04/20 72441-BKHZ SKIN LESIONS, OVER 4 05/05/20 18 37635-EPXK SKIN LESIONS, OVER 4 02/04/20 18 91331-RGDV SKIN LESIONS, OVER 4 09/29/19 19 52841-INRT SKIN LESIONS, OVER 4 07/14/20 18 06878-AIWZ SKIN LESIONS, OVER 4 12/09/19 36666-OJJS SKIN LESIONS, OVER 4 02/24/20 69058-NBAM SKIN LESIONS, OVER 4 12/14/19 33423-ZUXD SKIN LESIONS, OVER 4 10/30/19 84349-LZWG SKIN LESIONS, OVER 4 12/09/19 32948-IRCY SKIN LESIONS, OVER 4 02/28/20 17439-LCDB SKIN LESIONS, OVER 4 02/06/20 28721-EIFK SKIN LESIONS, OVER 4 04/12/20 13857-FTPK SKIN LESIONS, OVER 4 05/07/20 85676-OXXA SKIN LESIONS, OVER 4 06/21/20 03656-LQUL SKIN LESIONS, 2 TO 4 01/11/20 16 73912-HNQH SKIN LESIONS, 2 TO 4 08/01/20 15 19235-NTAH SKIN LESIONS, 2 TO 4 06/19/20 11 00707-Yaku. Subungual Hematoma 5 Q0227-FXTRPGDS DYSTROPHIC NAILS ANY # W1446-FIYFCBGS DYSTROPHIC NAILS ANY # X ray : Ankle, right 3V 08/18/2013 17580 - Tenotomy, open flexor 02/27/2022 73921 - Tenotomy, open flexor 12/14/2019 Insurance Providers Payer Name Payer Address Payer Phone Subscriber Number Group Number Insured Name Patient Relationship to Insured Coverage Start Date Coverage End Date [facility] [address] [place] [address] [id number] Nabeel Saha Self - patient is the insured 9 Medical (General) History Medical History History ICD Code chronic sinusitis neuropathy measles lupus diverticulosis diabetes mellitus depression back, hip, knee pain Anxiety disorder Diabetic - IDDM/Neuropathy Diabetic - IDDM/Neuropathy Type 2 diabetes mellitus with diabetic p olyneuropathy E11.42 Surgical History Surgery Date(Month/Year) skin grafts HT/Ex ulcer right 3rd 09/30/2013 Ht/Ulcer left 2nd 05/25/2015
--- OUTSIDE RECORDS SUMMARY | 2025-02-02 15:47 | XMS_ITS | Patient Health Record ---
Author Organization [facility] Address [address] [place] [address] Care Team Providers Care Senior Data Warehouse Developer Name Role Phone Kerline Chadwick MD Primary Care Provider Connor Thapa [phone] Allergies Allergen (clinical drug ingredient) Drug/Non Drug Allergy documented on EMR Reaction Allergy Type Onset Date Status codeine Codeine stomach upset Drug Allergy Act an[place] Reason For Referral No Information Medications Medication [...] Oral for 30 Lunesta for sleep--prn Active Immunizations Vaccine Route Administration Date Status Comme nts Influenza Unknown 05/17/2020 Administered Social History Tobacco Use: Social History Observation Description Date Details (start date - stop date) Never Smoker NA - NA Tobacco Use/Smoking Question Answer Notes Patient is a nonsmoker Alcohol Screen Question Answer Notes Did you have a drink containing alcohol in the p ast year? No Points 0 Interpretation Negative Section Notes: No EtOH x 20 years(heavy in the past) Problems Problem Type SNOMED Code ICD Code Onset Dates Problem Status W/U Status Risk Notes Problem 803369060 Encounter for screening for malignant neoplasm of colon (Z12.11) Active confirmed Problem 453393201 Pre-procedural laboratory examination (Z01.812) Active confirmed Plan Of Treatment Future Test Test Name Order Date COLONOSCOPY 04/11/2021 Insurance Providers Payer Name Payer Address Payer Phone Subscriber Number Group Number Insured Name Patient Relationship to Insured Coverage Start Date Coverage End Date [facility] [address] [place] [phone] [id number] SHANIQUE CHAU Self - patient is the insured Medical (General) History Medical History History ICD Code NIDDM Denies [place],CVA,Lung disease,renal disease Sleep apnea-uses CPAP periodically Anxiety/Depression ADD 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
== END 2025-02-02 15:49 | disposition home or self-care (01) ==
LOC: HO.HMCH 14:23
PROVIDERS: PCP Internal Medicine; Visit Provider Internal Medicine
DX: E11.65 Type 2 diabetes mellitus with hyperglycemia (principal); E78.00 Pure hypercholesterolemia, unspecified; I10 Essential (primary) hypertension; F33.1 Major depressive disorder, recurrent, moderate

== ENCOUNTER → 2025-02-02 14:22 | Outpatient (BNVA) | payer MEDICARE, SELFPAY | PROVIDERS: PCP Internal Medicine; Visit Provider Internal Medicine | DX: E11.65 Type 2 diabetes mellitus with hyperglycemia (principal); E78.00 Pure hypercholesterolemia, unspecified; F33.1 Major depressive disorder, recurrent, moderate; I10 Essential (primary) hypertension | CPT/HCPCS: 83036; 99212 ==

== ENCOUNTER 2025-02-26 16:16 | Outpatient (REF) | payer MEDICARE, SELFPAY ==
--- NOTE | ~2025-02-26 | CT_ITS ---
EXAMINATION: CT HEAD WITHOUT CONTRAST CLINICAL INFORMATION: Mild clonus COMPARISON: None available. TECHNIQUE: Contiguous axial imaging was performed from the skull base to vertex without intravenous administration of contrast. This CT examination was performed using dose optimization techniques as appropriate, variously including the following: *Automated exposure control *Adjustment of mA and/or kV according to patient size (this includes techniques or standardized protocols for targeted exams where dose is matched to indication/reason for exam; i.e. extremities or head) *Use of iterative reconstruction technique DLP: 793 mGY*cm FINDINGS: There is no acute ischemic change. There is no intracranial hemorrhage. There is no mass-effect or midline shift. There is mild generalized atrophy. There are coarse calcifications along the falx. Periventricular hypodensities are present in the deep white matter likely related to small vascular disease. Basal cisterns and ventricles are within normal limits for age/cerebral volume. Orbits are symmetrical and unremarkable. There is mucosal thickening in the ethmoid air cells, sphenoid sinuses, and bilateral maxillary sinuses. There are no bony abnormalities. CT/CT head/brain wo IV con IMPRESSION: Chronic sinusitis mostly sparing the frontal sinuses. Electronically signed by: Anival Camilo MD 02/26/2025 06:12 PM EDT RP
--- OUTSIDE RECORDS SUMMARY | 2025-02-26 16:18 | XMS_ITS | Clinical Summary ---
Author Organization [facility] Address [address] [place] [address] Care Team Providers Care Senior Energy Trader Name Role Phone Raeann Early Unavailable Unavailable [...] (1 - Tdap) 11/08/2022 11/07/2022 Depression Monitoring 02/21/2023 08/23/2022, 022 COVID-19 Vaccine ( - season) 2024 11/19/2021, 01/07/2021, 12/10/2020 Influenza Vaccine (Season Ended) 2025 07/20/2022, 07/06/2021, 06/26/2019, Additional history exists RSV Patients [...] patient's age to complete this topic Insurance [facility] Care Teams Senior Energy Trader Relationship Specialty Start Date End Date PcpKevin Unassigned PCP - General Family Medicine 01/14/23 Raeann Early LICSW Pilot Boat [employer] Behavioral [facility] 08/23/22
== END 2025-02-26 16:17 | disposition home or self-care (01) ==
LOC: HO.CT 16:16
PROVIDERS: PCP Internal Medicine; Visit Provider Internal Medicine
DX: G25.3 Myoclonus (principal)
CPT/HCPCS: 70450

== ENCOUNTER → 2025-02-26 16:17 | Outpatient (BNV) | payer MEDICARE, SELFPAY | PROVIDERS: PCP Internal Medicine; Visit Provider Radiology Diagnostic Radiology | DX: R90.82 White matter disease, unspecified (principal) | CPT/HCPCS: 70450 ==

== ENCOUNTER 2025-02-28 16:39 | Emergency (ER) | payer MEDICARE, SELFPAY ==
[2025-02-28 16:47] VITALS: BP 189/89; PULSE 95; RESP 16; TEMP 36.4; O2SAT 98; BMI 30.7
--- NOTE | 2025-02-28 16:49 | ED_ITS ---
HPI - Anxiety General Chief Complaint: Psychiatric Symptoms Stated Complaint: out of lorazapam/anxiety Time Seen by Provider: 02/28/25 18:04 Source: patient Limitations: no limitations History of Present Illness ED Provider: Nini Chan PA-C HPI narrative: 69-year-old male with a history of cognitive impairment, depression, anxiety, ADHD, OCD, PTSD, hypertension, hyperlipidemia, diabetes with neuropathy who presents with anxiety. Patient states he has been having ?a panic attack? for the past several hours, he states he used to be prescribed Ativan, however his primary care provider discontinued its use. Patient states he feels as if his anxiety has been triggered ?by the riots and protesting?. Patient states he has not had a Ativan for 3 months, he no longer sees a counselor or therapist. It sounds as if his primary care has been managing his anxiety. When asked of the patient is suicidal, he states ?I do not know I have never been suicidal, he has no plan for self-harm?. Related Data Previous Rx's ?Medication ?Instructions ?Recorded mupirocin 2 % topical ointment 1 appl topical TID #22 grams 11/16/21 sodium chloride 0.65 % nasal spray 1 spray intranasal Q1H PRN dry 01/04/22 aerosol (Deep Sea Nasal) nares #44 mL blood sugar diagnostic (FreeStyle #100 ea 05/14/22 Lite Strips) lancets 28 gauge (FreeStyle #100 ea 05/14/22 Lancets) bupropion HCl 150 mg tablet,12 hr 150 mg PO DAILY #90 tabs 04/29/24 sustained-release cetirizine 10 mg tablet (Zyrtec) 10 mg PO DAILY PRN allergy 07/27/24 symptoms #90 tabs hydroxyzine HCl 25 mg tablet 25 mg PO TID PRN for anxiety #270 07/29/24 tabs gabapentin 100 mg capsule 100 mg PO TID 90 days #270 caps 08/20/24 lorazepam 1 mg tablet 1 mg PO BID-TID PRN anxiety 30 09/07/24 days #90 tabs duloxetine 30 mg capsule,delayed 30 mg PO DAILY #90 caps 01/15/25 release lorazepam 1 mg tablet (Ativan) 1 mg PO DAILY PRN anxiety #3 tabs 02/28/25 Allergies Allergy/AdvReac Type Severity Reaction Status Date / Time bacitracin Allergy Unknown Rash Verified 02/28/25 16:51 lisinopril Allergy Unknown Rash Verified 02/28/25 16:51 gabapentin AdvReac Intermediate leg Verified 02/28/25 16:51 swelling codeine [Codeine] AdvReac Mild Nausea and Verified 02/28/25 16:51 Vomiting trazodone AdvReac Intermediate night mare Uncoded 02/28/25 16:51 PMFSH Past Medical History Attestation statement: The following information was validated with the patient. Medical History Colon cancer screening Colonoscopy refused Hospital discharge follow-up Chest pain not due to acute coronary syndrome Acute anxiety Chronic post-traumatic stress disorder (PTSD) Anxiety Annual physical exam Diabetic foot Burn Left renal stone Substance abuse SLE (systemic lupus erythematosus related syndrome) Diverticular disease Type 2 diabetes mellitus with hyperglycemia Diabetic neuropathy Hypercholesterolemia Obsessive compulsive disorder Obstructive sleep apnea Insomnia Surgical History Hx of colonoscopy S/P tonsillectomy History of hammertoe correction Family History Family History Father CVD (cardiovascular disease) Mother Diabetes Sister Bladder cancer Other ADHD Social History Social History Household Members: None Household Members Other:: None Housing: Condominium Do you presently have visiting nurse or other home services: No Alcohol intake: former Patient Tobacco Use Status: Never used Tobacco Smoked in Last 30 Days: No e-Cigarette/Vaping Use: Never Used Second Hand Smoke Exposure: No Use of substances other than those prescribed or required for medical reasons: No Advance Directives: No Advance Directives Information Provided: Yes service: No Current occupational status: employed Sexual orientation: Straight/Heterosexual Cognitive needs: Yes Hearing needs: Yes Vision needs: Yes Physical Exam 2 Vital Signs: Vital Signs: Last Vital Signs Temp 97.6 F 02/28/25 16:47 Pulse 95 02/28/25 16:47 Resp 16 02/28/25 16:47 BP 189/89 H 02/28/25 16:47 Pulse Ox 98 02/28/25 16:47 O2 Del Method Room Air 02/28/25 16:47 BMI result Body Mass Index 30.7 Course Course Course Narrative: Qing Leavitt APRN This is a rapid medical exam. Deferred additional HPI, ROS, PE to primary provider. 69 yo male with history of anxiety, PTSD here with anxiety, vague SI. WIll obtain [place]OMACK, labs, give one dose PO ativan, crisis consult. VSS Reevaluation(s) Reevaluation #1: speaking with Jennifer from the Care team, the patient was given resources for outpatient therapy and counseling, he will call his primary care tomorrow about a prescription for Ativan, he was given a 1 time dose here from triage, we will send him with a short prescription for Ativan. Time: 18:52 Medications Administered Discontinued Medications Generic Name Dose Route Start Last Admin Trade Name Freq PRN Reason Stop Dose Admin Lorazepam 1 mg 02/28/25 16:53 02/28/25 17:29 Lorazepam 1 Mg Tablet PO 02/28/25 16:54 1 mg ONCE ONE Administration Medical Decision Making Medical Decision Making [facility] Narrative: 69-year-old male with a history of cognitive impairment, depression, anxiety, ADHD, OCD, PTSD, hypertension, hyperlipidemia, diabetes with neuropathy who presents with anxiety. Patient states he has been having ?a panic attack? for the past several hours, he states he used to be prescribed Ativan, however his primary care provider discontinued its use. Patient states he feels as if his anxiety has been triggered ?by the riots and protesting?. Patient states he has not had a Ativan for 3 months, he no longer sees a counselor or therapist. It sounds as if his primary care has been managing his anxiety. When asked of the patient is suicidal, he states ?I do not know I have never been suicidal, he has no plan for self-harm?. Problem: Psychiatric illness History: Per patient I have considered the following differential diagnoses: SI, HI, decompensated psychiatric illness, drug/alcohol intoxication Plan: Screening labs including serum ethanol and drug screen we will be obtained, a care team consult we will be placed. I foresee the patient requiring resources for counseling and therapy, I am not prescribing Ativan, there must be an underlying reason as to why that medication was discontinued. The patient is not suicidal, his anxiety was trigger today. I have independently reviewed the following tests: Labs: No leukocytosis, not anemic, no electrolyte abnormality, U tox and ethanol pending Lab Data 02/28/25 17:17 02/28/25 17:17 Labs: Lab Results 02/28/25 Range/Units 17:17 WBC 10.2 (4.8-10.8) X10*3/uL RBC 4.12 L (4.60-5.80) X10*6/uL Hgb 13.3 L (14.0-18.0) g/dl Hct 36.9 L (42.0-52.0) % MCV 89.6 (80.0-98.0) fL MCH 32.3 (27.0-33.0) pg MCHC 36.0 (31.0-36.0) g/dl RDW 12.5 (11.0-16.0) % Plt Count 283 (160-400) X10*3/uL MPV 9.2 L (9.4-12.4) fL Immature Gran % (Auto) 0.4 (0.0-0.4) % Neut % (Auto) 60.9 (45-73) % Lymph % (Auto) 22.3 (20-40) % [place] % (Auto) 9.8 (2-11) % Eos % (Auto) 5.9 H (0-4) % Baso % (Auto) 0.7 (0-2) % Lymph # (Auto) 2.3 (1.2-4.9) X10*3/uL [place] # (Auto) 1.0 (0.1-1.2) X10*3/uL Eos # (Auto) 0.6 H (0.0-0.4) X10*3/uL Baso # (Auto) 0.1 (0.0-0.2) X10*3/uL Abs Immat Gran (auto) 0.04 H (0.00-0.03) X10*3/uL Absolute Neuts (auto) 6.2 (2.0-8.3) x10*3/uL Absolute Nucleated RBC 0.000 (0.0-0.012) X10*3/uL Nucleated RBC % (auto) 0.0 (0.0-0.2) /100WBC Sodium 142 (135-145) mmol/L Potassium 4.1 (3.3-5.1) mmol/L Chloride 107 (96-108) mmol/L Carbon Dioxide 24 (22-29) mmol/L Anion Gap 15 (12-20) BUN 17 H (9-16) mg/dL Creatinine 0.92 (0.5-1.4) mg/dL Estim Creat Clear Calc 85.5 Estimated GFR > 60 Random Glucose 174 H (60-115) mg/dL Calcium 9.6 (8.4-10.2) mg/dL Total Bilirubin 0.4 (0.0-1.0) mg/dL Direct Bilirubin 0.1 (0.0-0.5) mg/dL AST 29 (5-37) U/L ALT 34 (0-40) U/L Alkaline Phosphatase 69 (39-117) U/L Total Protein 6.8 (6.5-8.0) g/dL Albumin 4.2 (3.5-5.0) g/dL Discharge Plan Discharge Clinical Impression: Anxiety Patient Disposition: Home, Self-Care Instructions: Panic Disorder (ED), Anxiety (ED) Additional Instructions: You were given a 1 time dose of Ativan here to help with your panic attack today. I am sending you with a short prescription for Ativan, call your primary care tomorrow to discuss the need to have Ativan as needed for acute anxiety. You were also given resources for outpatient counseling and therapy. Prescriptions: New lorazepam [Ativan] 1 mg tablet 1 mg PO DAILY PRN (Reason: anxiety) Qty: 3 0RF No Action (DME) lancets [FreeStyle Lancets] 28 gauge misc See Rx Instructions .ROUTE .MEDSUPPLY Qty: 100 3RF Rx Instructions: As directed check BS QD (DME) FreeStyle Lite Strips Strip See Rx Instructions .ROUTE .MEDSUPPLY Qty: 100 3RF Rx Instructions: As directed check the BS QD bupropion HCl 150 mg tablet sustained-release 12 hr 150 mg PO DAILY Qty: 90 2RF hydroxyzine HCl 25 mg tablet 25 mg PO TID PRN (Reason: for anxiety) Qty: 270 1RF gabapentin 100 mg capsule 100 mg PO TID 90 Days Qty: 270 2RF lorazepam 1 mg tablet 1 mg PO BID-TID PRN (Reason: anxiety) 30 Days Qty: 90 1RF Rx Instructions: Take 2-3 times daily as needed. duloxetine 30 mg capsule,delayed release(DR/EC) 30 mg PO DAILY Qty: 90 1RF Deep Sea Nasal 0.65 % Aerosol,[place] 1 spray intranasal Q1H PRN (Reason: dry nares) Qty: 44 0RF mupirocin 2 % ointment 1 appl topical TID Qty: 22 0RF cetirizine [Zyrtec] 10 mg tablet 10 mg PO DAILY PRN (Reason: allergy symptoms) Qty: 90 1RF Interventions: [place]-Suicide Risk Severity Scale Last Done: 02/28/25 17:34 Print Language: Lao
--- OUTSIDE RECORDS SUMMARY | 2025-02-28 17:17 | XMS_ITS | Clinical Summary ---
Author Organization [employer] Address [address] [place] [address] Care Team Providers Care Bobbin Washer Name Role Phone Raeann Early Unavailable Unavailable [...] patient's age to complete this topic Insurance [facility] Care Teams Bobbin Washer Relationship Specialty Start Date End Date PcpKevin Unassigned PCP - General Family Medicine 01/14/23 Raeann Early LICSW [facility] 08/23/22
[2025-02-28 17:23] LABS: MANUAL DIFF FLAG NO
[2025-02-28 17:26] LABS: Basophils Absolute Auto 0.1 X10*3/uL (0.0-0.2); Basophils Percent Auto 0.7 % (0-2); Eosinophils Absolute Auto 0.6 X10*3/uL (0.0-0.4); Eosinophils Percent Auto 5.9 % (0-4); Hematocrit 36.9 % (42.0-52.0); Hemoglobin 13.3 g/dl (14.0-18.0); Imm Gran Abs Auto 0.04 X10*3/uL (0.00-0.03); Imm Gran Pct Auto 0.4 % (0.0-0.4); Lymphocytes Absolute Auto 2.3 X10*3/uL (1.2-4.9); Lymphocytes Percent Auto 22.3 % (20-40); Mean Corpuscular Hemoglobin 32.3 pg (27.0-33.0); Mean Corpuscular Volume 89.6 fL (80.0-98.0); Mean Platelet Volume 9.2 fL (9.4-12.4); Monocytes Percent Auto 9.8 % (2-11); Neutrophils Absolute Auto 6.2 x10*3/uL (2.0-8.3); Neutrophils Percent Auto 60.9 % (45-73); Platelet Count 283 X10*3/uL (160-400); Red Blood Count 4.12 X10*6/uL (4.60-5.80); Red Cell Distribution Width 12.5 % (11.0-16.0); White Blood Count 10.2 X10*3/uL (4.8-10.8)
[2025-02-28] MEDS: LORazepam 1 MG TABLET PO (17:29)
--- NOTE | 2025-02-28 17:36 | PC.NURSE ---
Patient not si/hi stating has been feeling anxious about recent current events. used to take ativan by PCP discontinued script d/t patient not needing to use it
[2025-02-28 17:41] LABS: Alanine Aminotransferase 34 U/L (0-40); Albumin Level 4.2 g/dL (3.5-5.0); Alkaline Phosphatase 69 U/L (39-117); Anion Gap 15 (12-20); Aspartate Amino Transferase 29 U/L (5-37); Bilirubin Direct 0.1 mg/dL (0.0-0.5); Bilirubin Total 0.4 mg/dL (0.0-1.0); Blood Urea Nitrogen 17 mg/dL (9-16); Calcium 9.6 mg/dL (8.4-10.2); Carbon Dioxide 24 mmol/L (22-29); Chloride 107 mmol/L (96-108); Creatinine Clr Calc Pharmacy 85.5; Estimated Glomerular Filt Rate > 60; Glucose Random 174 mg/dL (60-115); Potassium 4.1 mmol/L (3.3-5.1); Sodium 142 mmol/L (135-145); Total Protein 6.8 g/dL (6.5-8.0)
[2025-02-28 19:09] LABS: Amphetamine Screen Urine Not Detected (Not Detect); Barbiturates, Urine Not Detected (Not Detect); Benzodiazepines Screen Urine Not Detected (Not Detect); Buprenorphine Scr Not Detected (Not Detect); Cannabinoid Screen Urine Not Detected (Not Detect); Cocaine Screen Urine Not Detected (Not Detect); Fentanyl, urine Not Detected (Not Detect); Methadone Screen, Urine Not Detected (Not Detect); Opiate Screen Urine Not Detected (Not Detect); Oxycodone Screen Urine Not Detected (Not Detect); Phencyclidine Screen Urine Not Detected (Not Detect)
[2025-02-28 19:19] LABS: Ethanol < 10 mg/dL
[2025-02-28 19:23] VITALS: BP 160/75; PULSE 85; RESP 18; TEMP 36.4
== END 2025-02-28 19:25 | disposition home or self-care (01) ==
PROVIDERS: Nurse Practitioner Family; Physician Assistant Medical; Emergency Provider Internal Medicine; PCP Internal Medicine
DX: F41.9 Anxiety disorder, unspecified (principal); E11.9 Type 2 diabetes mellitus without complications; E78.00 Pure hypercholesterolemia, unspecified; F43.10 Post-traumatic stress disorder, unspecified; Z79.899 Other long term (current) drug therapy
CPT/HCPCS: 36415; 80048; 80076; 80307; 85025; 99284; S9485

== ENCOUNTER 2025-03-16 16:30 | Emergency (ER) | payer MEDICARE, SELFPAY ==
[2025-03-16 16:41] VITALS: BP 186/104; PULSE 112; RESP 20; TEMP 36.4; O2SAT 96; BMI 27.1
--- NOTE | 2025-03-16 16:42 | ED.GENADULT ---
HPI - General Adult General Chief complaint: Anxiety Stated complaint: Nervous/jittery haven't slept Time Seen by Provider: 03/16/25 18:55 History of Present Illness ED Provider: Dr. Cooper Related Data Home Medications ?Medication ?Instructions ?Recorded ?Confirmed duloxetine 30 mg capsule,delayed 30 mg PO DAILY 03/16/25 03/16/25 release hydroxyzine HCl 25 mg tablet 25 mg PO TID PRN anxiety 03/16/25 03/16/25 Previous Rx's ?Medication ?Instructions ?Recorded bupropion HCl 150 mg tablet,12 hr 150 mg PO DAILY #90 tabs 04/29/24 sustained-release gabapentin 100 mg capsule 100 mg PO TID 90 days #270 caps 08/20/24 lorazepam 1 mg tablet 1 mg PO BID-TID PRN anxiety 30 03/01/25 days #90 tabs Allergies Allergy/AdvReac Type Severity Reaction Status Date / Time bacitracin Allergy Unknown Rash Verified 03/16/25 16:47 lisinopril Allergy Unknown Rash Verified 03/16/25 16:47 codeine (Codeine) AdvReac Mild Nausea and Verified 03/16/25 16:47 Vomiting trazodone AdvReac Intermediate night mare Uncoded 03/16/25 16:47 PMFSH Past Medical History Medical History Colon cancer screening Colonoscopy refused Hospital discharge follow-up Chest pain not due to acute coronary syndrome Acute anxiety Chronic post-traumatic stress disorder (PTSD) Anxiety Annual physical exam Diabetic foot Burn Left renal stone Substance abuse SLE (systemic lupus erythematosus related syndrome) Diverticular disease Type 2 diabetes mellitus with hyperglycemia Diabetic neuropathy Hypercholesterolemia Obsessive compulsive disorder Obstructive sleep apnea Insomnia Surgical History Hx of colonoscopy S/P tonsillectomy History of hammertoe correction Family History Family History Father CVD (cardiovascular disease) Mother Diabetes Sister Bladder cancer Other ADHD Social History Social History Household Members: None Household Members Other:: None Housing: Condominium Do you presently have visiting nurse or other home services: No Alcohol intake: former Patient Tobacco Use Status: Never used Tobacco Smoked in Last 30 Days: No e-Cigarette/Vaping Use: Never Used Second Hand Smoke Exposure: No Use of substances other than those prescribed or required for medical reasons: No Advance Directives: No Advance Directives Information Provided: No Do you have a plan to hurt others: No Plan service: No Current occupational status: employed Sexual orientation: Straight/Heterosexual Cognitive needs: Yes Hearing needs: Yes Vision needs: Yes Physical Exam ED Vital Signs: Vital Signs - 24 hr 03/16/25 16:41 03/16/25 19:12 Temperature 97.6 F 97.9 F Pulse Rate 112 H 88 Respiratory Rate 20 18 Blood Pressure 186/104 H 164/94 H Pulse Oximetry 96 97 Oxygen Delivery Method Room Air Room Air BMI result Body Mass Index 27.1 Course Course Course Narrative: This is an RME performed by Veronica Mark CNP: Additional HPI, ROS, PE not included below will be deferred to primary provider. patient is a 69-year-old male who presents emergency department for evaluation, reporting I'm having an anxiety attack , onset this morning, building within the past few days, has not eating, has not been sleeping, has been taking oral lorazepam without improvement. Expresses anxiety surrounding social circumstances. Denies SI/HI. he additionally endorses having pain to the right lower lateral chest villa dating his ribs without any precipitating injury no recent cough or URI symptoms, additionally over the past 24 hours he has been experiencing urge incontinence a which is atypical for him, no hematuria. Plan: Serum labs, urinalysis Reevaluation(s) Reevaluation #1: 10:14 PM 03/16/2025 (Omar ZIMMERMAN): This provider was just updated by care team, patient will have respite admission at 11:00 on 03/17, requires discharge by 10:00. Patient is okay to drive himself to respite. Patient is not on a section 12, can leave prior to discharge if he chooses. Reevaluation #2: 11:14 PM 03/16/2025 (Omar ZIMMERMAN): This provider was just updated by care team that the patient is electing to be discharged home and will be self present to respite tomorrow morning. Patient will be discharged with diagnosis of unspecified depressive disorder. Medications Administered Discontinued Medications Generic Name Dose Route Start Last Admin Trade Name Freq PRN Reason Stop Dose Admin Gabapentin 100 mg 03/17/25 09:00 03/16/25 22:41 Gabapentin 100 Mg Capsule PO 100 mg TID BENITO Administration Hydroxyzine HCl 25 mg 03/16/25 22:22 03/16/25 22:41 Hydroxyzine Hcl 25 Mg Tablet PO 25 mg TID PRN Administration Anxiety Lorazepam 1 mg 03/16/25 19:24 03/16/25 19:53 Lorazepam 1 Mg Tablet PO 03/16/25 19:25 1 mg ONCE ONE Administration Lorazepam 1 mg 03/16/25 22:22 03/16/25 22:41 Lorazepam 1 Mg Tablet PO 1 mg TID PRN Administration Anxiety Medical Decision Making Lab Data 03/16/25 17:22 03/16/25 17:22 Labs: Lab Results 03/16/25 03/16/25 03/16/25 Range/Units 17:22 19:59 22:13 WBC 11.9 H (4.8-10.8) X10*3/uL RBC 4.47 L (4.60-5.80) X10*6/uL Hgb 14.3 (14.0-18.0) g/dl Hct 40.1 L (42.0-52.0) % MCV 89.7 (80.0-98.0) fL MCH 32.0 (27.0-33.0) pg MCHC 35.7 (31.0-36.0) g/dl RDW 12.4 (11.0-16.0) % Plt Count 303 (160-400) X10*3/uL MPV 9.8 (9.4-12.4) fL Immature Gran % (Auto) 0.3 (0.0-0.4) % Neut % (Auto) 67.5 (45-73) % Lymph % (Auto) 21.4 (20-40) % [place] % (Auto) 7.3 (2-11) % Eos % (Auto) 2.9 (0-4) % Baso % (Auto) 0.6 (0-2) % Lymph # (Auto) 2.5 (1.2-4.9) X10*3/uL [place] # (Auto) 0.9 (0.1-1.2) X10*3/uL Eos # (Auto) 0.3 (0.0-0.4) X10*3/uL Baso # (Auto) 0.1 (0.0-0.2) X10*3/uL Abs Immat Gran (auto) 0.04 H (0.00-0.03) X10*3/uL Absolute Neuts (auto) 8.0 (2.0-8.3) x10*3/uL Absolute Nucleated RBC 0.000 (0.0-0.012) X10*3/uL Nucleated RBC % (auto) 0.0 (0.0-0.2) /100WBC Sodium 142 (135-145) mmol/L Potassium 3.8 (3.3-5.1) mmol/L Chloride 106 (96-108) mmol/L Carbon Dioxide 25 (22-29) mmol/L Anion Gap 15 (12-20) BUN 11 (9-16) mg/dL Creatinine 0.92 (0.5-1.4) mg/dL Estim Creat Clear Calc 85.5 Estimated GFR > 60 POC Glucose 158 H (60-115) mg/dL Random Glucose 161 H (60-115) mg/dL Calcium 9.3 (8.4-10.2) mg/dL Total Bilirubin 0.4 (0.0-1.0) mg/dL AST 31 (5-37) U/L ALT 39 (0-40) U/L Alkaline Phosphatase 66 (39-117) U/L Total Protein 7.3 (6.5-8.0) g/dL Albumin 4.6 (3.5-5.0) g/dL Urine Color Yellow Urine Appearance Clear Urine pH 6.0 (5.0-9.0) Ur Specific [place] 1.015 (1.005-1.025) Urine Protein Negative (Neg-Trace) mg/dL Urine Glucose (UA) Negative (Negative) mg/dL Urine Ketones Negative (Negative) mg/dL Urine Blood Negative (Negative) Urine Nitrite Negative (Negative) Ur Leukocyte Esterase Negative (Negative) Urine Opiates Screen Not Detected (Not Detect) Ur Buprenorphine Scrn Not Detected (Not Detect) ng/mL Ur Oxycodone Screen Not Detected (Not Detect) ng/mL Urine Methadone Screen Not Detected (Not Detect) ng/mL Urine Fentanyl Screen Not Detected (Not Detect) Ur Barbiturates Screen Not Detected (Not Detect) Ur Phencyclidine Scrn Not Detected (Not Detect) Ur Amphetamines Screen Not Detected (Not Detect) U Benzodiazepines Scrn Not Detected (Not Detect) Urine Cocaine Screen Not Detected (Not Detect) U Marijuana (THC) Screen Not Detected (Not Detect) Discharge Plan Discharge Clinical Impression: Depressive disorder Patient Disposition: Home, Self-Care Instructions: Depression (ED) Additional Instructions: Thank you for choosing [facility] Emergency Department for your care today. Our care team was able to schedule you for a respite admission tomorrow at 11:00. Please self presents to the respite facility at 11:00 as you were instructed by our care team. Please return to the emergency department if you develop a severe or sudden change in your symptoms, a fever over 100.4 that does not improve with Tylenol or Ibuprofen, recurrent vomiting, or any other new or worsening symptoms or concerns. Prescriptions: No Action bupropion HCl 150 mg tablet sustained-release 12 hr 150 mg PO DAILY Qty: 90 2RF gabapentin 100 mg capsule 100 mg PO TID 90 Days Qty: 270 2RF lorazepam 1 mg tablet 1 mg PO BID-TID PRN (Reason: anxiety) 30 Days Qty: 90 1RF Rx Instructions: Take 2-3 times daily as needed. hydroxyzine HCl 25 mg tablet 25 mg PO TID PRN (Reason: anxiety) duloxetine 30 mg capsule,delayed release(DR/EC) 30 mg PO DAILY Interventions: ED Discharge Assessment Last Done: 03/16/25 23:18 Discharge Date/Time: 03/16/25 23:38 Print Language: Irish
[2025-03-16 17:27] LABS: MANUAL DIFF FLAG NO
[2025-03-16 17:37] LABS: Hematocrit 40.1 % (42.0-52.0); Hemoglobin 14.3 g/dl (14.0-18.0); Imm Gran Abs Auto 0.04 X10*3/uL (0.00-0.03); Imm Gran Pct Auto 0.3 % (0.0-0.4); Lymphocytes Absolute Auto 2.5 X10*3/uL (1.2-4.9); Mean Corpuscular HGB Conc 35.7 g/dl (31.0-36.0); Mean Corpuscular Hemoglobin 32.0 pg (27.0-33.0); Mean Corpuscular Volume 89.7 fL (80.0-98.0); NRBC Abs Auto 0.000 X10*3/uL (0.0-0.012); NRBC Pct Auto 0.0 /100WBC (0.0-0.2); Platelet Count 303 X10*3/uL (160-400); Red Blood Count 4.47 X10*6/uL (4.60-5.80); White Blood Count 11.9 X10*3/uL (4.8-10.8)
[2025-03-16 17:46] LABS: Alanine Aminotransferase 39 U/L (0-40); Albumin Level 4.6 g/dL (3.5-5.0); Alkaline Phosphatase 66 U/L (39-117); Anion Gap 15 (12-20); Aspartate Amino Transferase 31 U/L (5-37); Blood Urea Nitrogen 11 mg/dL (9-16); Calcium 9.3 mg/dL (8.4-10.2); Carbon Dioxide 25 mmol/L (22-29); Chloride 106 mmol/L (96-108); Creatinine Clr Calc Pharmacy 85.5; Estimated Glomerular Filt Rate > 60; Potassium 3.8 mmol/L (3.3-5.1); Sodium 142 mmol/L (135-145); Total Protein 7.3 g/dL (6.5-8.0)
[2025-03-16 19:12] VITALS: BP 164/94; PULSE 88; RESP 18; TEMP 36.6; O2SAT 97
--- OUTSIDE RECORDS SUMMARY | 2025-03-16 19:22 | XMS_ITS | Patient Health Record ---
Author Organization [facility] Address [address] [place] [address] Care Team Providers Care Furniture Arranger Name Role Phone Kerline Chadwick MD Primary Care Provider Connor Thapa [phone] Allergies Allergen (clinical drug ingredient) Drug/Non Drug [...] Problem Status W/U Status Risk Notes Problem 161112507 Encounter for screening for malignant neoplasm of colon (Z12.11) Active confirmed Problem [id number] Pre-procedural laboratory examination (Z01.812) Active confirmed Plan Of Treatment Future Test Test Name Order Date COLONOSCOPY 04/11/2021 Insurance Providers Payer Name Payer Address Payer Phone Subscriber Number Group Number Insured Name Patient Relationship to Insured Coverage Start Date Coverage End Date [facility] [address] [place] [phone] [id number] SHANIQUE CHAU Self - patient is the insured Medical (General) History Medical History History ICD Code NIDDM Denies [place],CVA,Lung disease,renal disease Sleep apnea-uses CPAP periodically Anxiety/Depression ADD 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
--- OUTSIDE RECORDS SUMMARY | 2025-03-16 19:22 | XMS_ITS | Clinical Summary ---
Author Organization [employer] Address [address] [facility] [address] [place] [address] Care Team Providers Care Electrical Assembly Technician Name Role Phone Raeann Early Unavailable Unavailable [...] patient's age to complete this topic Insurance [facility] Care Teams Electrical Assembly Technician Relationship Specialty Start Date End Date PcpKevin Unassigned PCP - General Family Medicine 01/14/23 Raeann Early LICSW [employer] [facility] 08/23/22
--- OUTSIDE RECORDS SUMMARY | 2025-03-16 19:23 | XMS_ITS | Patient Health Record ---
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 Name Role Phone Kerline Chadwick Primary Care Provider Unavailabl e Black, Miguelina Unavailable [phone] Allergies Allergen (clinical drug ingredient) Drug/Non Drug Allergy documented on EMR Reaction Allergy Type Onset Date Status sulfamethoxazole / trimethoprim Bactrim rash Drug Allergy Active codeine Codeine rash Drug Allergy Active Reason For Referral No Information Medications Medication SIG (Take, Route, Frequency, Duration) Notes Start Date End Date Status Zoloft Active Pioglitazone HCl 15 MG 1 tablet Orally O nce a day; Duration: 30 day(s) Active Percocet 5-325 MG 1 tablet as needed Orally every 6 hrs; Duration: as needed 05/10/2014 Not-Taking Triazolam 0.25 MG 1 tablet at bedtime as needed Orally Once a day Active Cephalexin 500 MG 1 capsule Orally twi ce a day; Duration: 10 days 03/16/2022 Not-Takin g Iodosorb 0.9 % as directed External ly Apply to wound daily and cover with clean bandage; Duration: 30 days 03/14/2015 Not-Taking Gabapentin 300 MG take two capsules by mouth three times a day Orally three times a day; Duration: 30 days Active Work Note . . . 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 . . Pt out of work 09/29/14 due to feet issues; Duration: . 09/28/2014 Not-Taking Percocet 5-325 MG 1 tablet as needed Orally every 6 hrs; Duration: 10 days 02/27/2022 Active Work Note . . . pt may return to work november 25; Duration: . 11/18/2014 Not-Taking Extra Depth Orthopedic Shoes (1 Pair) with Customized Heat Molded Multidensity Innersoles (3 Pair) as directed Dx: NIDDM/Polyneuropathy (E11.42), Hammertoe Foot Deformity (M20.41,M20.42), Preulcerative Skin Lesion(s) (L85.1 12/08/2020 Not-Taking Work Note . . . pt out of work u ntil further notice sx scheduled May 19 Not-Taking Extra Depth Orthopedic Shoes (1 Pair) with Customized Heat Molded Multidensity Innersoles (3 Pair) as directed Dx: NIDDM/Polyneuropathy (E11.42), Hammertoe Foot Deformity (M20.41,M20.42), Preulcerative Skin Lesion(s) (L85.1 02/15/2016 Not-Taking Augmentin 875-125 MG 1 tablet Orally Twi ce a day; Duration: 10 day(s) 04/18/2015 Not-Chalo ing Gabapentin 300 MG 1 capsule Orally 1 i n the am 2 at midday and 2 at bedtime; Duration: 30 day(s) 06/08/2022 Active Regranex 0.01 % 1 application to affected area Externally Once a day 04/13/2015 Not-Taking Percocet 5-325 MG 1 tablet as needed Orally every 6 hrs; Duration: 7 days 12/05/2015 Not-Taking Work Note . . . pt out of work u ntil further notice 04/25/2015 Not-Taking Percocet 5-325 MG 1 tablet as needed Orally every 6 hrs; Duration: 14 days Not-Taking Avapro Not-Taking Extra Depth [...] 1 tablet as needed Orally every 6 hrs; Duration: as needed 05/05/2018 Not-Taking Fluticasone Propionate 0.005 % 1 application to affected area Externally Twice a day Not-Taking Keflex 500 500 MG 1 capsule Orally herberth ry 12 hrs; Duration: 10 day(s) 12/14/2019 Not-Taking Augmentin 500-125 MG 1 tablet Orally herberth ry 8 hrs; Duration: 7 day(s) 08/06/2019 Not-Taki ng Ritalin Active Keflex 500 MG 1 capsule Orally herberth ry 12 hrs; Duration: 10 day(s) 05/27/2015 Not-Taking Mupirocin 2 % APPLY TO THE AFFECTE D AREA THREE TIMES A DAY NEEDED; Duration: 30 Active Naprosyn 375 MG 1 tablet Orally Twic e a day; Duration: 30 day(s) 05/30/2015 Not-Chalo ing Iodosorb Not-Taking Metformin & Diet Manage Prod 500 MG as directed Orally Active Naprosyn 375 MG 1 tablet Orally Twic e a day; Duration: 30 day(s) 05/24/2015 Not-Chalo ing Extra Depth Orthopedic Shoes (1 Pair) with Customized Heat Molded Multidensity Innersoles (3 Pair) as directed Dx: NIDDM/Polyneuropathy (E11.42), Hammertoe Foot Deformity (M20.41,M20.42), Preulcerative Skin Lesion(s) (L85.1 04/01/2020 Not-Taking Percocet 5-325 MG 1 tablet as needed Orally every 6 hrs; Duration: as needed 05/24/2015 Not-Taking Immunizations Vaccine Route [...] Problem Status W/U Status Risk Notes Problem Information temporarily unavailable Other hammer toe(s) (acquired), right foot (M20.41) Active confirmed Problem Information temporarily unavailable Non-pressure chronic ulcer of other part of right foot limited to breakdown of skin (L97.511) Active confirmed Problem Information temporarily unavailable Non-pressure chronic ulcer of other part of left foot limited to breakdown of skin (L97.521) Active confirmed Problem Information temporarily unavailable Diabetes mellitus due to underlying condition with foot ulcer (E08.621) Active confirmed Problem Information temporarily unavailable Type 2 diabetes mellitus with diabetic polyneuropathy (E11.42) Active confirmed Problem Information temporarily unavailable Non-pressure chronic ulcer of right heel and midfoot limited to breakdown of skin (L97.411) Active confirmed Problem Information temporarily unavailable Non-pressure chronic ulcer of left heel and midfoot limited to breakdown of skin (L97.421) Active confirmed Problem Information temporarily unavailable Non-pressure chronic ulcer of other part of unspecified foot with fat layer exposed (L97.502) Active confirmed Problem Information temporarily unavailable Non-pressure chronic ulcer of other part of left foot limited to breakdown of skin (L97.521) Active confirmed Problem Information temporarily unavailable Non-pressure chronic ulcer of other part of left foot with fat layer exposed (L97.522) Active confirmed Problem Information temporarily unavailable Non-pressure chronic ulcer of other part of right foot limited to breakdown of skin (L97.511) Active confirmed Problem Information temporarily unavailable Other hammer toe(s) (acquired), right foot (M20.41) Active confirmed Problem Information temporarily unavailable Other hammer toe(s) (acquired), left foot (M20.42) Active confirmed Problem Information temporarily unavailable Flexion contracture of joint of left foot [...] X ray : Foot, right 3V 12/10/2011 02375-PNMLRYZ NAIL, 6 OR MORE 06/19/2011 82559-IEQEAZZ NAIL, 6 OR MORE 01/14/2012 83436-QHGCBMQ NAIL, 6 OR MORE 05/08/2012 75993-FFWSLAE NAIL, 6 OR MORE 07/28/2012 98003-NWKKNKQ NAIL, 6 OR MORE 10/16/2012 11385-LCWCQRX NAIL, 6 OR MORE 01/12/2013 32591-DLNSWJP NAIL, 6 OR MORE 06/16/2012 04444-SKDWQZN NAIL, 6 OR MORE 03/26/2013 94352-CBHGGQP NAIL, 6 OR MORE 06/01/2013 53417-GDBLKZA NAIL, 6 OR MORE 08/18/2013 25032-VYWBFXH NAIL, 6 OR MORE 10/26/2013 22340-YVGKYNS NAIL, 6 OR MORE 02/21/2015 76018-JGKLUKZ NAIL, 6 OR MORE 12/05/2015 91695-UWMOLYE NAIL, 6 OR MORE 02/15/2016 84838-GLHTCYU NAIL, 6 OR MORE 05/17/2016 31759-SLFFARO NAIL, 6 OR MORE 08/13/2016 88763-HEOERRQ NAIL, 6 OR MORE 10/29/2016 94970-OWHGGKW NAIL, 6 OR MORE 07/04/2017 45859-JZHSBTU NAIL, 6 OR MORE 04/12/2014 35526-ZAIGXEK NAIL, 6 OR MORE 07/12/2014 08309-SLGYCNM NAIL, 6 OR MORE 02/11/2014 01322-DXSCOZY NAIL, 6 OR MORE 11/18/2014 22623-VOWTKBL NAIL, 6 OR MORE 01/14/2017 64401-EHKENGP NAIL, 6 OR MORE 09/24/2017 73553-BMXHYGK NAIL, 6 OR MORE 12/02/2017 52793-FICGLHA NAIL, 6 OR MORE 02/03/2018 50421-LNEPMXG NAIL, 6 OR MORE 05/05/2018 29113-RSNTVLW NAIL, 6 OR MORE 07/14/2018 25113-IGTKQSY NAIL, 6 OR MORE 09/29/2018 39408-SNCDEDZ NAIL, 6 OR MORE 12/08/2018 83221-COQGBJE NAIL, 6 OR MORE 02/23/2019 12695-YFFENWC NAIL, 6 OR MORE 04/27/2019 65711-JUEQTUW NAIL, 6 OR MORE 05/25/2019 46876-IZHUFKE NAIL, 6 OR MORE 06/22/2019 47616-PEUKMKE NAIL, 6 OR MORE 08/06/2019 25178-LJZFCYA NAIL, 6 OR MORE 11/03/2019 65623-WWGGRXU NAIL, 6 OR MORE 11/23/2019 54857-LJADEDF NAIL, 6 OR MORE 01/05/2020 97213-MEAZQWR NAIL, 6 OR MORE 04/01/2020 20003-SBKOSSE NAIL, 6 OR MORE 06/09/2020 76135-MSXOFZP NAIL, 6 OR MORE 10/20/2020 04627-FLBFEFW NAIL, 6 OR MORE 11/10/2020 53817-MRSNVBP NAIL, 6 OR MORE 02/27/2021 33121-OEIRUEV NAIL, 6 OR MORE 12/08/2020 58384-KOFDGZA NAIL, 6 OR MORE 07/06/2021 74400-MTXAFYE NAIL, 6 OR MORE 10/30/2021 97202-GRHAORE NAIL, 6 OR MORE 12/13/2021 03123-UXCBVLP NAIL, 6 OR MORE 02/05/2022 85215-CUIETCV NAIL, 6 OR MORE 04/12/2022 74813-NUIDIBZ NAIL, 6 OR MORE 05/07/2022 29360-Dcfhslcc Plate 01/05/2020 75400-Zcklcdlr Plate 02/27/2021 31255-Kzdryemf Plate 09/03/2019 18490-Iwufykow Plate 07/07/2019 76891-Kohwyamg Plate 09/29/2018 21936-Aomoqkdd Plate 07/14/2018 97155-Jmxoblim Plate 02/03/2018 27461-Ojbonnhu Plate 09/24/2017 68567-Btomcxdd Plate 02/21/2015 00158-Dvfexqap Plate 02/11/2014 65326-Xktrrapm Plate 07/12/2014 31243-Oqljxrem Plate 04/12/2014 09983-Xpdjtqzu Plate 05/10/2014 67771-Derthwno Plate 01/14/2017 90607-Qqtsorqh Plate 10/29/2016 86895-Uyzfynzl Plate 08/13/2016 86499-Vojlpcce Plate 09/26/2015 88617-Tqyrnhlb Plate 07/04/2015 22925-Cjxztqxp Plate 10/26/2013 59579-Cmjcrjfk Plate 08/18/2013 66249-Knpmlbfn Plate 06/01/2013 33897-Aeqspdiz Plate 03/26/2013 30910-Drxyljxf Plate 06/16/2012 56543-Gqpvgyfn Plate 01/12/2013 32039-Qqbpwzie Plate 10/16/2012 60860-Ayhaqgys Plate 07/28/2012 36470-Hpkruqwg Plate 05/08/2012 81438- Debride <25 sq cm 06/16/2012 90348- Debride <25 sq cm 05/08/2012 66235- Debride <25 sq cm 07/28/2012 10747- Debride <25 sq cm 10/16/2012 07000- Debride <25 sq cm 07/31/2011 44458- Debride <25 sq cm 06/19/2011 29873- Debride <25 sq cm 09/25/2011 01287- Debride <25 sq cm 11/16/2011 88233- Debride <25 sq cm 01/12/2013 00855- Debride <25 sq cm 06/01/2013 67888- Debride <25 sq cm 03/26/2013 83933- Debride <25 sq cm 08/18/2013 56002- Debride <25 sq cm 01/04/2014 25577- Debride <25 sq cm 02/11/2014 37834- Debride <25 sq cm 10/26/2013 85211- Debride <25 sq cm 03/29/2015 47219- Debride <25 sq cm 06/20/2015 57032- Debride <25 sq cm 03/11/2014 04149- Debride <25 sq cm 05/09/2015 25441- Debride <25 sq cm 10/29/2016 45431- Debride <25 sq cm 01/14/2017 53768- Debride <25 sq cm 07/04/2017 29686- Debride <25 sq cm 09/24/2017 04097- Debride <25 sq cm 05/10/2014 88858- Debride <25 sq cm 06/07/2014 02589- Debride <25 sq cm 07/12/2014 77160- Debride <25 sq cm 04/12/2014 22198- Debride <25 sq cm 08/16/2014 98982- Debride <25 sq cm 02/21/2015 40620- Debride <25 sq cm 01/24/2015 05371- Debride <25 sq cm 12/17/2014 31396- Debride <25 sq cm 11/18/2014 05796- Debride <25 sq cm 07/20/2019 81097- Debride <25 sq cm 06/08/2019 74057- Debride <25 sq cm 06/22/2019 82447- Debride <25 sq cm 02/23/2019 93672- Debride <25 sq cm 09/18/2019 75297- Debride <25 sq cm 10/02/2019 71515- Debride <25 sq cm 10/19/2019 60815- Debride <25 sq cm 11/03/2019 95592- Debride <25 sq cm 08/19/2019 98284- Debride <25 sq cm 11/23/2019 58910- Debride <25 sq cm 12/14/2019 11308- Debride <25 sq cm 07/06/2021 24394- Debride <25 sq cm 12/08/2020 77805- Debride <25 sq cm 11/10/2020 78866- Debride <25 sq cm 10/20/2020 81167- Debride <25 sq cm 01/18/2020 49625- Debride <25 sq cm 04/01/2020 25953- Debride <25 sq cm 06/21/2022 90089- Debride <25 sq cm 04/23/2022 52980- Debride <25 sq cm 05/07/2022 13302- Debride <25 sq cm 04/02/2022 95286- Debride <25 sq cm 04/12/2022 31349- Debride <25 sq cm 01/08/2022 26247- Debride <25 sq cm 02/05/2022 40365- Debride <25 sq cm 12/13/2021 55472- Debride <25 sq cm 10/30/2021 38552-XJVTMBR SKIN/TISSUE 12/13/2021 70279-WOMGYHU SKIN/TISSUE 12/07/2019 71996-REZEAGP SKIN/TISSUE 09/03/2019 25297-NGPQWKU SKIN/TISSUE 08/06/2019 13439-GVBNOZE SKIN/TISSUE 08/19/2019 85691-DQPEQDP SKIN/TISSUE 04/27/2019 08870-TBMRQUE SKIN/TISSUE 05/25/2019 16877-KUXOHYA SKIN/TISSUE 07/07/2019 19738-HUEAZKF SKIN/TISSUE 07/20/2019 32112-TJDLBIT SKIN/TISSUE 01/24/2015 11202-QMBZFZA SKIN/TISSUE 09/20/2014 02057-DILQRZJ SKIN/TISSUE 11/23/2013 73617-JNZCUNZ SKIN/TISSUE 05/17/2015 75429-TEFECNJ SKIN/TISSUE 05/24/2015 15896-NUYSANW SKIN/TISSUE 03/14/2015 45477-CLTKBSW SKIN/TISSUE 06/01/2013 11957-QWDWTYJ SKIN/TISSUE 09/25/2011 03945-UJAKRIV SKIN/TISSUE 05/10/2011 40018-KRZWLCE SKIN/TISSUE 08/16/2011 01089-ERYFXAK SKIN/TISSUE 08/31/2011 00992-ALUQNTF SKIN/TISSUE 07/19/2011 02999 I&D ABSCESS- SIMPLE,SINGLE 014 86856 I&D ABSCESS- SIMPLE,SINGLE 013 50109 I&D ABSCESS- SIMPLE,SINGLE 014 33517 I&D ABSCESS- SIMPLE,SINGLE 014 28700 I&D ABSCESS- SIMPLE,SINGLE 014 00204 I&D ABSCESS- SIMPLE,SINGLE 019 32591- I&D ABSCESS-COMPLICATED,MULTI 97989- I&D ABSCESS-COMPLICATED,MULTI 90216- I&D ABSCESS-COMPLICATED,MULTI 41858- I&D ABSCESS-COMPLICATED,MULTI 11/2012 19905- I&D ABSCESS-COMPLICATED,MULTI 06/2014, J0702- INJECT TENDON ORIGIN/INSER [...] J0702- INJECT or DRAIN, JOINT/BUR SA 10/26/2013 09178-NLBU SKIN LESIONS, OVER 4 08/18/20 13 19324-BJXS SKIN LESIONS, OVER 4 10/26/19 14 13928-HIDY SKIN LESIONS, OVER 4 06/01/20 13 89728-TLYR SKIN LESIONS, OVER 4 01/13/20 13 81650-IJBZ SKIN LESIONS, OVER 4 06/16/20 12 00842-JAYY SKIN LESIONS, OVER 4 03/26/20 13 57451-CRFG SKIN LESIONS, OVER 4 01/14/20 12 00258-EIPH SKIN LESIONS, OVER 4 10/16/19 13 84485-EHIM SKIN LESIONS, OVER 4 07/28/20 12 99446-YYJZ SKIN LESIONS, OVER 4 05/08/20 12 27949-XOGP SKIN LESIONS, OVER 4 04/12/20 14 45435-YUXE SKIN LESIONS, OVER 4 07/12/20 14 36866-WSFH SKIN LESIONS, OVER 4 02/12/20 14 18666-ZMJE SKIN LESIONS, OVER 4 11/19/19 15 32084-HIMP SKIN LESIONS, OVER 4 02/22/20 15 37701-RTNH SKIN LESIONS, OVER 4 02/15/20 16 65178-CZVV SKIN LESIONS, OVER 4 09/24/19 18 70912-DUSC SKIN LESIONS, OVER 4 01/15/20 17 78101-YWLM SKIN LESIONS, OVER 4 12/05/19 16 23378-USMV SKIN LESIONS, OVER 4 05/17/20 16 38126-ASDI SKIN LESIONS, OVER 4 10/29/19 17 71715-FHVF SKIN LESIONS, OVER 4 08/13/20 16 74186-KDKB SKIN LESIONS, OVER 4 01/05/20 35877-EUAA SKIN LESIONS, OVER 4 11/23/19 20701-SSFD SKIN LESIONS, OVER 4 09/03/20 69347-ZOMR SKIN LESIONS, OVER 4 11/03/19 99549-VVOR SKIN LESIONS, OVER 4 04/01/20 44845-OJAQ SKIN LESIONS, OVER 4 10/20/19 75014-DQBL SKIN LESIONS, OVER 4 06/09/20 89477-VKQA SKIN LESIONS, OVER 4 11/10/19 54235-OPTZ SKIN LESIONS, OVER 4 07/06/20 77962-RDVW SKIN LESIONS, OVER 4 08/06/20 94355-BUYI SKIN LESIONS, OVER 4 06/22/20 64591-XJHZ SKIN LESIONS, OVER 4 05/25/20 25384-KPMH SKIN LESIONS, OVER 4 04/27/20 65622-QEDE SKIN LESIONS, OVER 4 12/03/19 18 07992-POFP SKIN LESIONS, OVER 4 07/04/20 45349-FKMY SKIN LESIONS, OVER 4 05/05/20 18 23914-MKUF SKIN LESIONS, OVER 4 02/04/20 18 47921-VXJN SKIN LESIONS, OVER 4 09/29/19 49728-VDWL SKIN LESIONS, OVER 4 07/14/20 18 97706-GHIP SKIN LESIONS, OVER 4 12/09/19 94364-YUQM SKIN LESIONS, OVER 4 02/24/20 26290-QARK SKIN LESIONS, OVER 4 12/14/19 34281-AEXO SKIN LESIONS, OVER 4 10/30/19 59184-ROZG SKIN LESIONS, OVER 4 12/09/19 41206-CUIS SKIN LESIONS, OVER 4 02/28/20 02500-LKWJ SKIN LESIONS, OVER 4 02/06/20 52670-OHFB SKIN LESIONS, OVER 4 04/12/20 62784-MIQO SKIN LESIONS, OVER 4 05/07/20 97983-QKRS SKIN LESIONS, OVER 4 06/21/20 79095-ZOIF SKIN LESIONS, 2 TO 4 09/26/19 16 63923-QOTS SKIN LESIONS, 2 TO 4 08/01/20 15 52457-LSZY SKIN LESIONS, 2 TO 4 06/19/20 11 30972-Ogrd. Subungual Hematoma 04/03/201 5 Q5726-DJGZRRED DYSTROPHIC NAILS ANY # R8613-OBNYIOHG DYSTROPHIC NAILS ANY # X ray : Ankle, right 3V 08/18/2013 02866 - Tenotomy, open flexor 02/27/2022 61334 - Tenotomy, open flexor 12/14/2019 Insurance Providers Payer Name Payer Address Payer Phone Subscriber Number Group Number Insured Name Patient Relationship to Insured Coverage Start Date Coverage End Date [facility] [address] [place] [id number] Nabeel Saha Self - patient is the [...]
--- NOTE | 2025-03-16 19:50 | PC.NURSE ---
pt reporting increased anxiety, care team consult placed, pt changed into hospital attire at this time, calm and cooperative. pt denies si/hi
[2025-03-16 20:07] LABS: Appearance Urine Clear; Glucose Urine UA Negative (Negative); PH 6.0 (5.0-9.0); Specific Gravity - Urine 1.015 (1.005-1.025)
[2025-03-16 20:15] LABS: Cannabinoid Screen Urine Not Detected (Not Detect)
--- NOTE | 2025-03-16 22:13 | PC.NURSE ---
med rec completed with pt at bedside,medications locked into pharmacy
[2025-03-16 22:17] LABS: Glucose, Whole Blood 158 mg/dL (60-115)
--- NOTE | 2025-03-16 22:17 | MHC.CARE ---
Patient accepted to [facility] @ 11A.M ON 03/17. [address] [facility] in [place], [place]. Patient will be discharged @ 10A.M to get clothes and drive himself to [facility]. This has been discussed with ELSIE Car and patient agree with plan.
[2025-03-16 23:18] VITALS: BP 163/107; PULSE 111; RESP 18; TEMP 36.2; O2SAT 97
== END 2025-03-16 23:38 | disposition home or self-care (01) ==
PROVIDERS: Nurse Practitioner Family; Emergency Provider Internal Medicine; PCP Internal Medicine
DX: F41.9 Anxiety disorder, unspecified (principal); F33.1 Major depressive disorder, recurrent, moderate; R07.81 Pleurodynia; N39.41 Urge incontinence; Z79.899 Other long term (current) drug therapy; Z51.81 Encounter for therapeutic drug level monitoring
CPT/HCPCS: 36415; 80053; 80307; 81003; 82947; 85025; 99284; S9485

== ENCOUNTER 2025-03-26 14:02 | Outpatient (REF) | payer MEDICARE, SELFPAY ==
--- OUTSIDE RECORDS SUMMARY | 2025-03-26 14:06 | XMS_ITS | Clinical Summary ---
Author Organization [facility] Address [address] [place] [address] Care Team Providers Care Sales Assistant Institutional Sales Name Role Phone Raeann Early Unavailable Unavailable [...] 2024 11/19/2021, 01/07/2021, 12/10/2020 Influenza Vaccine (#1) 2025 , 07/06/2021, 06/26/2019, Additional history exists RSV [...] patient's age to complete this topic Insurance [facility] Care Teams Sales Assistant Institutional Sales Relationship Specialty Start Date End Date PcpKevin Unassigned PCP - General Family Medicine 01/14/23 Raeann Early LICSW Graphic Arts Instructor Behavioral Health 08/23/22
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
--- OUTSIDE RECORDS SUMMARY | 2025-03-26 14:07 | XMS_ITS | Patient Health Record ---
[facility] Address [address] [place] [address] Care Team Providers Care Senior Linux Systems Administrator Name Role Phone Kerline Chadwick Primary Care Provider Unavailabl e Black, Miguelina Unavailable [phone] Allergies Allergen (clinical drug ingredient) Drug/Non Drug [...] 04/13/2015 Not-Taking Mupirocin 2 % 1 application Events Manager ally Twice a day; Duration: 5 day(s) [...] X ray : Foot, right 3V 12/10/2011 60359-DQAAZFP NAIL, 6 OR MORE 06/19/2011 68535-CTSDNCJ NAIL, 6 OR MORE 01/14/2012 05017-EBJSJOT NAIL, 6 OR MORE 05/08/2012 93714-FWWOWTX NAIL, 6 OR MORE 07/28/2012 92942-OHYHIQH NAIL, 6 OR MORE 10/16/2012 86070-UUGFMFT NAIL, 6 OR MORE 01/12/2013 08977-HNDVAUL NAIL, 6 OR MORE 06/16/2012 94450-QLXLVZF NAIL, 6 OR MORE 03/26/2013 15799-MKWPQQR NAIL, 6 OR MORE 06/01/2013 12480-UDBUJCI NAIL, 6 OR MORE 08/18/2013 88101-MYRXEPN NAIL, 6 OR MORE 10/26/2013 71036-DSOXVER NAIL, 6 OR MORE 02/21/2015 49646-LWMZRCK NAIL, 6 OR MORE 12/05/2015 82160-SWBRTAF NAIL, 6 OR MORE 02/15/2016 16842-IAPBXJI NAIL, 6 OR MORE 05/17/2016 22483-UPPKFPT NAIL, 6 OR MORE 08/13/2016 73237-NZTDWLM NAIL, 6 OR MORE 10/29/2016 56839-ZJWFNZY NAIL, 6 OR MORE 07/04/2017 56295-JCBCKMO NAIL, 6 OR MORE 04/12/2014 52897-ZOHRMNZ NAIL, 6 OR MORE 07/12/2014 02529-CZFNXCC NAIL, 6 OR MORE 02/11/2014 94261-FACFVZZ NAIL, 6 OR MORE 11/18/2014 35093-GELLQJH NAIL, 6 OR MORE 01/14/2017 65223-JKXPOOZ NAIL, 6 OR MORE 09/24/2017 54802-YKRBHEQ NAIL, 6 OR MORE 12/02/2017 69693-SCMTCZD NAIL, 6 OR MORE 02/03/2018 22682-KYHFINY NAIL, 6 OR MORE 05/05/2018 39177-HABDCIF NAIL, 6 OR MORE 07/14/2018 79871-ZBFLKXU NAIL, 6 OR MORE 09/29/2018 67218-VRVKTWM NAIL, 6 OR MORE 12/08/2018 06179-MJULOJS NAIL, 6 OR MORE 02/23/2019 12634-TMZIPUD NAIL, 6 OR MORE 04/27/2019 79526-JNXBMOV NAIL, 6 OR MORE 05/25/2019 92201-SPGGNPV NAIL, 6 OR MORE 06/22/2019 96989-ECZFACE NAIL, 6 OR MORE 08/06/2019 63144-ZSEQSDO NAIL, 6 OR MORE 11/03/2019 92357-UTUEXJA NAIL, 6 OR MORE 11/23/2019 69378-COYVTNR NAIL, 6 OR MORE 01/05/2020 97213-WVJLWHU NAIL, 6 OR MORE 04/01/2020 09781-VRSIOVS NAIL, 6 OR MORE 06/09/2020 17413-UQYIACH NAIL, 6 OR MORE 10/20/2020 47782-NSGXNAJ NAIL, 6 OR MORE 11/10/2020 49231-YQEWAYN NAIL, 6 OR MORE 02/27/2021 53020-PGAGWOT NAIL, 6 OR MORE 12/08/2020 26297-UFVIHZM NAIL, 6 OR MORE 07/06/2021 51300-MKESLRM NAIL, 6 OR MORE 10/30/2021 74560-EVQWKVA NAIL, 6 OR MORE 12/13/2021 36726-HWJQAAR NAIL, 6 OR MORE 02/05/2022 75434-OTTETER NAIL, 6 OR MORE 04/12/2022 56238-EVFWFZT NAIL, 6 OR MORE 05/07/2022 67943-Ngsioyha Plate 01/05/2020 01072-Zejpjviz Plate 02/27/2021 82670-Loynltnh Plate 09/03/2019 67361-Xloxssjx Plate 07/07/2019 78352-Lsssbgdc Plate 09/29/2018 88543-Yjeirgxq Plate 07/14/2018 49088-Ulmuipwz Plate 02/03/2018 11803-Hhnttysl Plate 09/24/2017 43219-Kxyedewc Plate 02/21/2015 33737-Hpvpqgov Plate 02/11/2014 82063-Ikymlvsu Plate 07/12/2014 94041-Xlpmeitk Plate 04/12/2014 44633-Yukthlwh Plate 05/10/2014 46899-Nsjfylmz Plate 01/14/2017 82637-Slphuipg Plate 10/29/2016 06762-Vawpklqp Plate 08/13/2016 13091-Scrdzybi Plate 09/26/2015 29048-Uffoudiw Plate 07/04/2015 92987-Mwmfchju Plate 10/26/2013 25814-Mycbkjgm Plate 08/18/2013 76045-Malrvmrf Plate 06/01/2013 31216-Qwwarhgp Plate 03/26/2013 23055-Bmnrzgqb Plate 06/16/2012 40517-Feiapolk Plate 01/12/2013 84101-Eavndivz Plate 10/16/2012 15597-Wfxrujpw Plate 07/28/2012 56628-Uuqwjsez Plate 05/08/2012 04354- Debride <25 sq cm 06/16/2012 12923- Debride <25 sq cm 05/08/2012 10532- Debride <25 sq cm 07/28/2012 67252- Debride <25 sq cm 10/16/2012 19235- Debride <25 sq cm 07/31/2011 73773- Debride <25 sq cm 06/19/2011 38338- Debride <25 sq cm 09/25/2011 45048- Debride <25 sq cm 11/16/2011 14196- Debride <25 sq cm 01/12/2013 42678- Debride <25 sq cm 06/01/2013 72774- Debride <25 sq cm 03/26/2013 05628- Debride <25 sq cm 08/18/2013 86098- Debride <25 sq cm 01/04/2014 13185- Debride <25 sq cm 02/11/2014 83362- Debride <25 sq cm 10/26/2013 35286- Debride <25 sq cm 03/29/2015 79598- Debride <25 sq cm 06/20/2015 99924- Debride <25 sq cm 03/11/2014 02073- Debride <25 sq cm 05/09/2015 62775- Debride <25 sq cm 10/29/2016 60871- Debride <25 sq cm 01/14/2017 20989- Debride <25 sq cm 07/04/2017 06778- Debride <25 sq cm 09/24/2017 57633- Debride <25 sq cm 05/10/2014 91919- Debride <25 sq cm 06/07/2014 31853- Debride <25 sq cm 07/12/2014 45383- Debride <25 sq cm 04/12/2014 78164- Debride <25 sq cm 08/16/2014 07010- Debride <25 sq cm 02/21/2015 49675- Debride <25 sq cm 01/24/2015 67877- Debride <25 sq cm 12/17/2014 90094- Debride <25 sq cm 11/18/2014 79255- Debride <25 sq cm 07/20/2019 01119- Debride <25 sq cm 06/08/2019 64905- Debride <25 sq cm 06/22/2019 10465- Debride <25 sq cm 02/23/2019 61097- Debride <25 sq cm 09/18/2019 97462- Debride <25 sq cm 10/02/2019 21814- Debride <25 sq cm 10/19/2019 91441- Debride <25 sq cm 11/03/2019 06720- Debride <25 sq cm 08/19/2019 41034- Debride <25 sq cm 11/23/2019 29592- Debride <25 sq cm 12/14/2019 88410- Debride <25 sq cm 07/06/2021 24405- Debride <25 sq cm 12/08/2020 27321- Debride <25 sq cm 11/10/2020 42858- Debride <25 sq cm 10/20/2020 12203- Debride <25 sq cm 01/18/2020 87366- Debride <25 sq cm 04/01/2020 42286- Debride <25 sq cm 06/21/2022 81038- Debride <25 sq cm 04/23/2022 05265- Debride <25 sq cm 05/07/2022 62636- Debride <25 sq cm 04/02/2022 05441- Debride <25 sq cm 04/12/2022 28520- Debride <25 sq cm 01/08/2022 81880- Debride <25 sq cm 02/05/2022 71966- Debride <25 sq cm 12/13/2021 28621- Debride <25 sq cm 10/30/2021 61368-ZUTVQWI SKIN/TISSUE 12/13/2021 36875-AFAHQSG SKIN/TISSUE 12/07/2019 12861-ZVUPDWA SKIN/TISSUE 09/03/2019 22632-IUMGINJ SKIN/TISSUE 08/06/2019 19845-AFWHTMR SKIN/TISSUE 08/19/2019 53753-YTQGXEW SKIN/TISSUE 04/27/2019 32011-ZALJNLQ SKIN/TISSUE 05/25/2019 14456-CLPJSDZ SKIN/TISSUE 07/07/2019 16198-QQNAAHF SKIN/TISSUE 07/20/2019 49979-OKUUHYR SKIN/TISSUE 01/24/2015 30232-RIYBGKC SKIN/TISSUE 09/20/2014 03751-DLKKZNB SKIN/TISSUE 11/23/2013 44392-CXBGADF SKIN/TISSUE 05/17/2015 99609-EATRIPS SKIN/TISSUE 05/24/2015 72842-QHJZBTA SKIN/TISSUE 03/14/2015 87624-EPDXVYH SKIN/TISSUE 06/01/2013 94392-GWWLONR SKIN/TISSUE 09/25/2011 90846-VTSINAV SKIN/TISSUE 05/10/2011 21436-XANNDMB SKIN/TISSUE 08/16/2011 25262-KKSEGMV SKIN/TISSUE 08/31/2011 31634-VAPILKH SKIN/TISSUE 07/19/2011 21875 I&D ABSCESS- SIMPLE,SINGLE 014 64508 I&D ABSCESS- SIMPLE,SINGLE 013 72694 I&D ABSCESS- SIMPLE,SINGLE 014 70940 I&D ABSCESS- SIMPLE,SINGLE 014 91450 I&D ABSCESS- SIMPLE,SINGLE 014 88048 I&D ABSCESS- SIMPLE,SINGLE 019 53142- I&D ABSCESS-COMPLICATED,MULTI 70165- I&D ABSCESS-COMPLICATED,MULTI 02267- I&D ABSCESS-COMPLICATED,MULTI 94563- I&D ABSCESS-COMPLICATED,MULTI 11/2012 60535- I&D ABSCESS-COMPLICATED,MULTI 06/2014, J0702- INJECT TENDON ORIGIN/INSER [...] J0702- INJECT or DRAIN, JOINT/BUR SA 10/26/2013 29364-DPDK SKIN LESIONS, OVER 4 08/18/20 13 61701-RCZY SKIN LESIONS, OVER 4 10/26/19 14 57307-PDLT SKIN LESIONS, OVER 4 06/01/20 13 63388-OGBT SKIN LESIONS, OVER 4 01/13/20 13 78238-QRQJ SKIN LESIONS, OVER 4 06/16/20 12 10036-VNAQ SKIN LESIONS, OVER 4 03/26/20 13 14891-OSOH SKIN LESIONS, OVER 4 01/14/20 12 06565-TYWY SKIN LESIONS, OVER 4 10/16/19 13 01026-RVUG SKIN LESIONS, OVER 4 07/28/20 12 20501-WDCZ SKIN LESIONS, OVER 4 05/08/20 12 80448-HCKI SKIN LESIONS, OVER 4 04/12/20 14 96039-LQWL SKIN LESIONS, OVER 4 07/12/20 14 77094-UZCV SKIN LESIONS, OVER 4 02/12/20 14 17783-DGNC SKIN LESIONS, OVER 4 11/19/19 15 58800-PXIL SKIN LESIONS, OVER 4 02/22/20 15 38933-ZGGT SKIN LESIONS, OVER 4 02/15/20 16 17768-GMKH SKIN LESIONS, OVER 4 09/24/19 18 97338-ZBQE SKIN LESIONS, OVER 4 01/15/20 17 35190-XCEV SKIN LESIONS, OVER 4 12/05/19 16 92081-DSSU SKIN LESIONS, OVER 4 05/17/20 16 12630-HLUP SKIN LESIONS, OVER 4 10/29/19 17 85984-TNJG SKIN LESIONS, OVER 4 08/13/20 16 67277-XYGT SKIN LESIONS, OVER 4 01/05/20 01526-GFOB SKIN LESIONS, OVER 4 11/23/19 30436-SPNL SKIN LESIONS, OVER 4 09/03/20 26254-SUXZ SKIN LESIONS, OVER 4 11/03/19 18116-NYKF SKIN LESIONS, OVER 4 04/01/20 62908-UMYV SKIN LESIONS, OVER 4 10/20/19 91169-RVHK SKIN LESIONS, OVER 4 06/09/20 38544-IOKJ SKIN LESIONS, OVER 4 11/10/19 15983-UIHC SKIN LESIONS, OVER 4 07/06/20 21288-FGFX SKIN LESIONS, OVER 4 08/06/20 86204-NGOF SKIN LESIONS, OVER 4 06/22/20 71183-RDJM SKIN LESIONS, OVER 4 05/25/20 81315-OEDY SKIN LESIONS, OVER 4 04/27/20 62467-SGAD SKIN LESIONS, OVER 4 12/03/19 18 27813-TGCR SKIN LESIONS, OVER 4 07/04/20 64946-HLHH SKIN LESIONS, OVER 4 05/05/20 18 42127-HRLL SKIN LESIONS, OVER 4 02/04/20 18 81200-IGYW SKIN LESIONS, OVER 4 09/29/19 76224-XYSG SKIN LESIONS, OVER 4 07/14/20 18 14978-UFUA SKIN LESIONS, OVER 4 12/09/19 44911-VMFV SKIN LESIONS, OVER 4 02/24/20 20592-FCVG SKIN LESIONS, OVER 4 12/14/19 72501-SSVI SKIN LESIONS, OVER 4 10/30/19 39767-FXMV SKIN LESIONS, OVER 4 12/09/19 48273-HSTK SKIN LESIONS, OVER 4 02/28/20 44072-EZLA SKIN LESIONS, OVER 4 02/06/20 74147-JCAY SKIN LESIONS, OVER 4 04/12/20 58269-XAFR SKIN LESIONS, OVER 4 05/07/20 39042-WOED SKIN LESIONS, OVER 4 06/21/20 32613-NWOF SKIN LESIONS, 2 TO 4 09/26/19 16 73159-RARQ SKIN LESIONS, 2 TO 4 08/01/20 15 56898-QVOP SKIN LESIONS, 2 TO 4 06/19/20 11 05900-Dnaq. Subungual Hematoma 04/03/201 5 I6838-WWGDTCXW DYSTROPHIC NAILS ANY # E7827-NMUSSOAS DYSTROPHIC NAILS ANY # X ray : Ankle, right 3V 08/18/2013 74639 - Tenotomy, open flexor 02/27/2022 61766 - Tenotomy, open flexor 12/14/2019 Insurance Providers Payer Name Payer Address Payer Phone Subscriber Number Group Number Insured Name Patient Relationship to Insured Coverage Start Date Coverage End Date [facility] [address] [place] [phone] [id number] Nabeel Saha Self - patient is the [...]
--- NOTE | 2025-03-29 11:49 | MHC.AU.HA3 ---
Hearing Instrument Follow-Up- Binaural Date of Visit: 03/29/25 Right Ear: Michael, Model, Color, Serial Number: Carley CROS Electric Green SN [id number] Edge Burnisher Uppers Repair Warranty: 12/08/2026 Edge Burnisher Uppers Loss and Damage Warranty: 12/08/2026 [facility] Service Plan: N/A Battery Size: Rechargeable Embosser Operator/Slim Tube: 2 Earmold/Dome/CShell/SlimTip:med open Type of Wax Guard: CeruShield Dispensed By: Date of Fittin09/26/23 Left Ear: Michael, Model, Color, Serial Number: Carley [id number] Electric Green SN [id number] Edge Burnisher Uppers Repair Warranty: 12/08/2026 Edge Burnisher Uppers Loss and Damage Warranty: 12/08/2026 [facility] Service Plan: N/A Battery Size: Rechargeable Embosser Operator/Slim Tube: 2 M Earmold/Dome/CShell/SlimTip: med power Type of Wax Guard: CeruShield Dispensed By: [facility] Date of Fittin09/26/23 Follow-Up Summary: ORTIZ and CROS dropped off 03/26 with mold stacker (no mold stacker cord). C/O right not charging. Found wax built up on dome and wax guard. Cleaned aids. Replaced domes, wax guard, and tails. Charged fully using Nabeel's mold stacker and office cord. Listening check positive. Checked [employer] for firmware update, all up to date. Both devices showing full charge after coming out of mold stacker. Recommendations: Recommendations: Hearing instrument follow-up or maintenance as needed. Diagnosis Code(s): Primary Diagnosis: H90.3 Bilateral Sensorineural Hearing Loss Signature: Provider: Elba Martinez, [facility]
== END 2025-03-26 14:03 | disposition home or self-care (01) ==
LOC: HO.SH 14:02
PROVIDERS: Visit Provider Internal Medicine
DX: Z13.89 Encounter for screening for other disorder (principal)

== ENCOUNTER 2025-03-30 12:56 | Outpatient (REF) | payer SELFPAY ==
--- OUTSIDE RECORDS SUMMARY | 2025-03-30 14:09 | XMS_ITS | Clinical Summary ---
Author Organization [employer] Address [address] [place] [address] Care Team Providers Care Agronomy Location Manager Name Role Phone Raeann Early Unavailable Unavailable [...] patient's age to complete this topic Insurance [facility] Care Teams Agronomy Location Manager Relationship Specialty Start Date End Date PcpKevin Unassigned PCP - General Family Medicine 01/14/23 Raeann Early LICSW Concrete Wall Grinder Operator Behavioral Health 08/23/22
--- OUTSIDE RECORDS SUMMARY | 2025-03-30 14:09 | XMS_ITS | Patient Health Record ---
Author Organization [facility] Address [address] [place] [address] Care Team Providers Care Engineering Mgr Name Role Phone Kerline Chadwick Primary Care Provider Unavailabl e Black, Miguelina Unavailable [phone] Allergies Allergen (clinical drug ingredient) Drug/Non Drug [...] 04/13/2015 Not-Taking Mupirocin 2 % 1 application Design Engineering Manager ally Twice a day; Duration: 5 [...] X ray : Foot, right 3V 12/10/2011 18687-WERAWKT NAIL, 6 OR MORE 06/19/2011 91230-QQRICJO NAIL, 6 OR MORE 01/14/2012 17832-VUUCHCD NAIL, 6 OR MORE 05/08/2012 55540-WXKNEKI NAIL, 6 OR MORE 07/28/2012 49033-CNIULOB NAIL, 6 OR MORE 10/16/2012 77028-TCTRORX NAIL, 6 OR MORE 01/12/2013 37676-EWKEORH NAIL, 6 OR MORE 06/16/2012 00027-RHKOWBV NAIL, 6 OR MORE 03/26/2013 39184-FKYJGRE NAIL, 6 OR MORE 06/01/2013 65941-UBJGLPP NAIL, 6 OR MORE 08/18/2013 95995-SHXDEAO NAIL, 6 OR MORE 10/26/2013 62008-KTSKIOS NAIL, 6 OR MORE 02/21/2015 61781-UJYYFKQ NAIL, 6 OR MORE 12/05/2015 67514-ZZWLZYE NAIL, 6 OR MORE 02/15/2016 92803-XDMBMRF NAIL, 6 OR MORE 05/17/2016 19777-GGWTCGT NAIL, 6 OR MORE 08/13/2016 18208-MIYBYEQ NAIL, 6 OR MORE 10/29/2016 67743-DQCQILW NAIL, 6 OR MORE 07/04/2017 04999-FQWJSUH NAIL, 6 OR MORE 04/12/2014 30470-MQAIDCU NAIL, 6 OR MORE 07/12/2014 90926-YOZUZGA NAIL, 6 OR MORE 02/11/2014 50828-YAJIZZO NAIL, 6 OR MORE 11/18/2014 84088-NIMEMIE NAIL, 6 OR MORE 01/14/2017 59127-CDCLIED NAIL, 6 OR MORE 09/24/2017 68913-WDTFSUO NAIL, 6 OR MORE 12/02/2017 55228-CYEMZWN NAIL, 6 OR MORE 02/03/2018 63855-QEANRXR NAIL, 6 OR MORE 05/05/2018 44920-XWKBKKJ NAIL, 6 OR MORE 07/14/2018 94105-MKAHMRX NAIL, 6 OR MORE 09/29/2018 60527-IKWUFOC NAIL, 6 OR MORE 12/08/2018 16712-TUGDTNO NAIL, 6 OR MORE 02/23/2019 96608-XJJBLGZ NAIL, 6 OR MORE 04/27/2019 51276-TIEJXMJ NAIL, 6 OR MORE 05/25/2019 61574-EGOWWKV NAIL, 6 OR MORE 06/22/2019 82292-QYIACIR NAIL, 6 OR MORE 08/06/2019 17824-JUWZRPY NAIL, 6 OR MORE 11/03/2019 54583-IXEWREU NAIL, 6 OR MORE 11/23/2019 72742-OKQMNBZ NAIL, 6 OR MORE 01/05/2020 62085-ZNHMUDN NAIL, 6 OR MORE 04/01/2020 25752-DLJNACE NAIL, 6 OR MORE 06/09/2020 58026-NRQCMTI NAIL, 6 OR MORE 10/20/2020 68916-IMTONUF NAIL, 6 OR MORE 11/10/2020 15768-VLSHTKM NAIL, 6 OR MORE 02/27/2021 04380-SQGUOWG NAIL, 6 OR MORE 12/08/2020 22931-VNGIYVU NAIL, 6 OR MORE 07/06/2021 19294-DHGFPPU NAIL, 6 OR MORE 10/30/2021 42565-DEKLYMQ NAIL, 6 OR MORE 12/13/2021 87275-BBGFRKQ NAIL, 6 OR MORE 02/05/2022 57995-ALGESRK NAIL, 6 OR MORE 04/12/2022 32496-YXORTJU NAIL, 6 OR MORE 05/07/2022 05617-Mfxbyjui Plate 01/05/2020 50405-Yyxtzgbr Plate 02/27/2021 23345-Pbdoomre Plate 09/03/2019 74312-Vmxdwifx Plate 07/07/2019 31524-Sfaendlz Plate 09/29/2018 39538-Qpcfuzba Plate 07/14/2018 00533-Mjxhkdpy Plate 02/03/2018 85370-Mqoqeffk Plate 09/24/2017 30313-Lwhyfulq Plate 02/21/2015 28890-Dypzfxpa Plate 02/11/2014 62516-Ujlqdynh Plate 07/12/2014 61804-Gjhzngil Plate 04/12/2014 94189-Vqnsdxux Plate 05/10/2014 30037-Ovcfeucr Plate 01/14/2017 97702-Todwvaby Plate 10/29/2016 61130-Jhcrmyfk Plate 08/13/2016 51090-Lmiykfaa Plate 09/26/2015 93469-Nqytwxfi Plate 07/04/2015 81963-Idduyfus Plate 10/26/2013 11697-Gjyqvnie Plate 08/18/2013 36401-Gkwfzduf Plate 06/01/2013 54740-Gryiuuwv Plate 03/26/2013 74358-Pwjwoczz Plate 06/16/2012 95702-Lgwqvsrt Plate 01/12/2013 85119-Wuvmpwca Plate 10/16/2012 87369-Lqtgagel Plate 07/28/2012 88640-Blafbowb Plate 05/08/2012 11944- Debride <25 sq cm 06/16/2012 20742- Debride <25 sq cm 05/08/2012 68074- Debride <25 sq cm 07/28/2012 09318- Debride <25 sq cm 10/16/2012 25701- Debride <25 sq cm 07/31/2011 45949- Debride <25 sq cm 06/19/2011 79034- Debride <25 sq cm 09/25/2011 04515- Debride <25 sq cm 11/16/2011 52949- Debride <25 sq cm 01/12/2013 33770- Debride <25 sq cm 06/01/2013 69620- Debride <25 sq cm 03/26/2013 95004- Debride <25 sq cm 08/18/2013 16179- Debride <25 sq cm 01/04/2014 36946- Debride <25 sq cm 02/11/2014 58426- Debride <25 sq cm 10/26/2013 79116- Debride <25 sq cm 03/29/2015 12134- Debride <25 sq cm 06/20/2015 60781- Debride <25 sq cm 03/11/2014 27844- Debride <25 sq cm 05/09/2015 73902- Debride <25 sq cm 10/29/2016 13037- Debride <25 sq cm 01/14/2017 80050- Debride <25 sq cm 07/04/2017 34823- Debride <25 sq cm 09/24/2017 55912- Debride <25 sq cm 05/10/2014 67095- Debride <25 sq cm 06/07/2014 60967- Debride <25 sq cm 07/12/2014 03770- Debride <25 sq cm 04/12/2014 37435- Debride <25 sq cm 08/16/2014 21303- Debride <25 sq cm 02/21/2015 57246- Debride <25 sq cm 01/24/2015 84703- Debride <25 sq cm 12/17/2014 65431- Debride <25 sq cm 11/18/2014 07760- Debride <25 sq cm 07/20/2019 03694- Debride <25 sq cm 06/08/2019 88281- Debride <25 sq cm 06/22/2019 48454- Debride <25 sq cm 02/23/2019 86166- Debride <25 sq cm 09/18/2019 03173- Debride <25 sq cm 10/02/2019 90069- Debride <25 sq cm 10/19/2019 67173- Debride <25 sq cm 11/03/2019 92963- Debride <25 sq cm 08/19/2019 52952- Debride <25 sq cm 11/23/2019 66830- Debride <25 sq cm 12/14/2019 66274- Debride <25 sq cm 07/06/2021 24153- Debride <25 sq cm 12/08/2020 84753- Debride <25 sq cm 11/10/2020 64004- Debride <25 sq cm 10/20/2020 90075- Debride <25 sq cm 01/18/2020 38576- Debride <25 sq cm 04/01/2020 11900- Debride <25 sq cm 06/21/2022 79474- Debride <25 sq cm 04/23/2022 24357- Debride <25 sq cm 05/07/2022 67111- Debride <25 sq cm 04/02/2022 12816- Debride <25 sq cm 04/12/2022 11292- Debride <25 sq cm 01/08/2022 20802- Debride <25 sq cm 02/05/2022 78932- Debride <25 sq cm 12/13/2021 62227- Debride <25 sq cm 10/30/2021 70237-XOOIVKY SKIN/TISSUE 12/13/2021 98737-LVQYYZX SKIN/TISSUE 12/07/2019 87703-CXWNYAS SKIN/TISSUE 09/03/2019 14790-ZYUNMVO SKIN/TISSUE 08/06/2019 72816-AGYIWQB SKIN/TISSUE 08/19/2019 09383-LWHCFJD SKIN/TISSUE 04/27/2019 74181-JVRTWUU SKIN/TISSUE 05/25/2019 33424-QBPJQKM SKIN/TISSUE 07/07/2019 32640-BBJMXOT SKIN/TISSUE 07/20/2019 92144-CFULRAE SKIN/TISSUE 01/24/2015 19876-ORRBBFJ SKIN/TISSUE 09/20/2014 08258-QKUGZYW SKIN/TISSUE 11/23/2013 17580-TETADYP SKIN/TISSUE 05/17/2015 91422-ZNWABQR SKIN/TISSUE 05/24/2015 17754-ALLHZLH SKIN/TISSUE 03/14/2015 91384-MXPGFSX SKIN/TISSUE 06/01/2013 57611-LIEEYLO SKIN/TISSUE 09/25/2011 80202-GCOHITT SKIN/TISSUE 05/10/2011 93195-PWDPPXM SKIN/TISSUE 08/16/2011 65550-UPZGGWE SKIN/TISSUE 08/31/2011 03486-BOSMJBZ SKIN/TISSUE 07/19/2011 73803 I&D ABSCESS- SIMPLE,SINGLE 014 70496 I&D ABSCESS- SIMPLE,SINGLE 013 45627 I&D ABSCESS- SIMPLE,SINGLE 014 36011 I&D ABSCESS- SIMPLE,SINGLE 014 61656 I&D ABSCESS- SIMPLE,SINGLE 014 04063 I&D ABSCESS- SIMPLE,SINGLE 019 70193- I&D ABSCESS-COMPLICATED,MULTI 28429- I&D ABSCESS-COMPLICATED,MULTI 41387- I&D ABSCESS-COMPLICATED,MULTI 97705- I&D ABSCESS-COMPLICATED,MULTI 11/2012 43110- I&D ABSCESS-COMPLICATED,MULTI 06/2014, J0702- INJECT TENDON ORIGIN/INSER [...] J0702- INJECT or DRAIN, JOINT/BUR SA 10/26/2013 31820-TXDO SKIN LESIONS, OVER 4 08/18/20 13 91029-TKOA SKIN LESIONS, OVER 4 10/26/19 14 48311-FNTK SKIN LESIONS, OVER 4 06/01/20 13 78868-VIIK SKIN LESIONS, OVER 4 01/13/20 13 87417-RGBB SKIN LESIONS, OVER 4 06/16/20 12 02206-QZBY SKIN LESIONS, OVER 4 03/26/20 13 93177-FRSL SKIN LESIONS, OVER 4 01/14/20 12 30059-BLRW SKIN LESIONS, OVER 4 10/16/19 13 49087-DUYE SKIN LESIONS, OVER 4 07/28/20 12 99758-IZSD SKIN LESIONS, OVER 4 05/08/20 12 06266-ARVQ SKIN LESIONS, OVER 4 04/12/20 14 50911-WCMJ SKIN LESIONS, OVER 4 07/12/20 14 96449-DWEM SKIN LESIONS, OVER 4 02/12/20 14 91148-EJIF SKIN LESIONS, OVER 4 11/19/19 15 52736-XMSN SKIN LESIONS, OVER 4 02/22/20 15 29483-SGFP SKIN LESIONS, OVER 4 02/15/20 16 34309-CEQO SKIN LESIONS, OVER 4 09/24/19 18 12518-GLWI SKIN LESIONS, OVER 4 01/15/20 17 50376-KYXZ SKIN LESIONS, OVER 4 12/05/19 16 05325-HUDZ SKIN LESIONS, OVER 4 05/17/20 16 85482-RZLM SKIN LESIONS, OVER 4 10/29/19 17 94623-SRRL SKIN LESIONS, OVER 4 08/13/20 16 97999-ECAN SKIN LESIONS, OVER 4 01/05/20 39447-GNIJ SKIN LESIONS, OVER 4 11/23/19 20254-QIFE SKIN LESIONS, OVER 4 09/03/20 53756-XQFU SKIN LESIONS, OVER 4 11/03/19 70825-UKAC SKIN LESIONS, OVER 4 04/01/20 18022-WCNZ SKIN LESIONS, OVER 4 10/20/19 74962-BJAP SKIN LESIONS, OVER 4 06/09/20 73117-KPWR SKIN LESIONS, OVER 4 11/10/19 38338-GXKS SKIN LESIONS, OVER 4 07/06/20 26939-NPLI SKIN LESIONS, OVER 4 08/06/20 44935-LLUB SKIN LESIONS, OVER 4 06/22/20 32683-GKYD SKIN LESIONS, OVER 4 05/25/20 37496-WSJB SKIN LESIONS, OVER 4 04/27/20 29663-BCJS SKIN LESIONS, OVER 4 12/03/19 18 52110-HEWN SKIN LESIONS, OVER 4 07/04/20 98194-FCIU SKIN LESIONS, OVER 4 05/05/20 18 72258-PLAS SKIN LESIONS, OVER 4 02/04/20 18 48451-VFPV SKIN LESIONS, OVER 4 09/29/19 89177-PSGJ SKIN LESIONS, OVER 4 07/14/20 18 96024-IZXI SKIN LESIONS, OVER 4 12/09/19 56737-DDRL SKIN LESIONS, OVER 4 02/24/20 71005-LIVP SKIN LESIONS, OVER 4 12/14/19 03520-KUWW SKIN LESIONS, OVER 4 10/30/19 23210-ZLSK SKIN LESIONS, OVER 4 12/09/19 92284-XXGY SKIN LESIONS, OVER 4 02/28/20 62885-SAMH SKIN LESIONS, OVER 4 02/06/20 50598-UMXK SKIN LESIONS, OVER 4 04/12/20 19406-DYVO SKIN LESIONS, OVER 4 05/07/20 95011-BDBF SKIN LESIONS, OVER 4 06/21/20 72144-BDVF SKIN LESIONS, 2 TO 4 09/26/19 16 43024-LYBV SKIN LESIONS, 2 TO 4 08/01/20 15 14564-NMTL SKIN LESIONS, 2 TO 4 06/19/20 11 65447-Wkdp. Subungual Hematoma 04/03/201 5 S7137-UGSFTJTN DYSTROPHIC NAILS ANY # U6730-YZKSCOZO DYSTROPHIC NAILS ANY # X ray : Ankle, right 3V 08/18/2013 33609 - Tenotomy, open flexor 02/27/2022 13270 - Tenotomy, open flexor 12/14/2019 Insurance Providers Payer Name Payer Address Payer Phone Subscriber Number Group Number Insured Name Patient Relationship to Insured Coverage Start Date Coverage End Date [facility] [address] [place] [id number] Nabeel Saha Self - patient is the [...]
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
== END 2025-03-30 12:57 | disposition home or self-care (01) ==
LOC: HO.HAP 12:56
PROVIDERS: Visit Provider Internal Medicine
DX: Z46.1 Encounter for fitting and adjustment of hearing aid (principal); H90.3 Sensorineural hearing loss, bilateral
CPT/HCPCS: 92593

== ENCOUNTER 2025-07-05 08:55 | Outpatient (AMB) | payer MEDICARE, SELFPAY ==
--- NOTE | 2025-07-05 09:02 | A.OFFPC_ITS ---
Vital Signs 07/05/25 09:03 Height 6 ft Weight 204 lb 2 oz BMI 27.7 BP 128/86 Blood Pressure Location Lt brachial Position Sitting Pulse 98 Pulse Source Pulse Oximeter Temp 97.0 F Temp Source Temporal Artery Scan Pulse Oximetry (%) 96 Oxygen Delivery Method Room Air Intake Visit Reasons: DM Allergies bacitracin Allergy (Unknown, Verified 07/05/25 09:06) Rash lisinopril Allergy (Unknown, Verified 07/05/25 09:06) Rash codeine (Codeine) Adverse Reaction (Mild, Verified 07/05/25 09:06) Nausea and Vomiting trazodone Adverse Reaction (Intermediate, Uncoded 07/05/25 09:06) night mare Medication List - Last Reconciled 07/05/25 by Kerline Chadwick MD bupropion HCl SR 150 mg PO DAILY duloxetine 30 mg PO DAILY gabapentin 100 mg PO TID 90 days hydroxyzine HCl 25 mg PO TID PRN lorazepam 1 mg PO BID-TID PRN 30 days Tobacco use date assessed: 07/05/25 Fall risk assessment: No Falls in past year Last assessed Fall Risk: 07/05/25 Dental Screening Dental Screen Date: 07/05/25 Did you have a dental visit in the last 12 months?: No Did you have a dental problem in the last 6 months where you did not have access to dental care?: No Was dental information given to patient?: Patient has dentist [facility], [facility]–1983 Medical History Colon cancer screening Colonoscopy refused Hospital discharge follow-up Chest pain not due to acute coronary syndrome Acute anxiety Chronic post-traumatic stress disorder (PTSD) Anxiety Annual physical exam Diabetic foot Burn Left renal stone Substance abuse SLE (systemic lupus erythematosus related syndrome) Diverticular disease Type 2 diabetes mellitus with hyperglycemia Diabetic neuropathy Hypercholesterolemia Obsessive compulsive disorder Obstructive sleep apnea Insomnia Surgical History Hx of colonoscopy S/P tonsillectomy History of hammertoe correction Family History Father CVD (cardiovascular disease) Mother Diabetes Sister Bladder cancer Other ADHD Social History Household Members: None Household Members Other:: None Housing: Condominium Do you presently have visiting nurse or other home services: No Alcohol intake: former Patient Tobacco Use Status: Never used Tobacco e-Cigarette/Vaping Use: Never Used Second Hand Smoke Exposure: No service: No Current occupational status: employed Sexual orientation: Straight/Heterosexual Cognitive needs: Yes Hearing needs: Yes Vision needs: Yes Questionnaire PHQ-9 Over the last 2 weeks, how often have you been bothered by any of the following problems? 1. Little interest or pleasure in doing things: nearly every day 2. Feeling down, depressed, or hopeless: nearly every day 3. Trouble falling or staying asleep, or sleeping too much: nearly every day 4. Feeling tired or having little energy: nearly every day 5. Poor appetite or overeating: nearly every day 6. Feeling bad about yourself - or that you are a failure or have let yourself or your family down: nearly every day 7. Trouble concentrating on things, such as reading the newspaper or watching television: nearly every day 8. Moving or speaking so slowly that other people could have noticed. Or the opposite - being so fidgety or restless that you have been moving around a lot more than usual: several days 9. Thoughts that you would be better off or of hurting yourself in some way: not at all Total score: 22 Depression Screening Interpretation: Positive Depression Screening Done: Yes Source: Developed by Drs. Connor Carson, Jerri Caro, Amado Elmore and colleagues, with an educational dinah from [employer]. Thrive Questionnaire Date Thrive assessed: 02/01/25 I am a: Patient What is your living situation today?: I have a steady place to live Within the past 12 months, did the food you bought not last and you didn't have the money to get more?: Never true Within the past 12 months, did you worry whether your food would run out before you got money to buy more?: Never true Do you have trouble paying for medicines?: No Do you have trouble getting transportation to medical appointments?: No Do you have trouble paying your heating and electricity bill?: No Do you have trouble taking care of your child, family member or friend?: No Do you have trouble with day-to-day activities such as bathing, preparing meals, shopping, managing finances, etc.?: Yes Are you currently unemployed and looking for a job?: No Are you interested in more education?: Yes Currently or been in a relationship where the following occur: No concerns reported THRIVE Score: 0 AUDIT C Alcohol Use Questionnaire (AUDIT-C) 1. How often do you have a drink containing alcohol?: Never 3. How often do you have six or more drinks on one occasion?: Never Total Score: 0 LEIA-7 AMB Questionnaire LEIA-7 Date LEIA - 7 assessed: 11/13/24 Feeling nervous, anxious, or on edge: 3 = Nearly every day Not being able to stop or control worryin = Several days Worrying too much about different things: 1 = Several days Trouble relaxin = Several days Being so restless that it is hard to sit still: 0 = Not at all Becoming easily annoyed or irritable: 1 = Several days Feeling afraid as if something awful might happen: 2 = More than half the days Total LEIA-7 score (0-4 normal; 5-9 mild; 10-14 moderate; 15-21 severe): 9 Source: Developed by Drs. Connor Carson, Jerri Caro, Amado Elmore and colleagues, with an educational dinah from [employer]. Physical exam (Primary Care) Vital Signs: Last Vital Signs Temp 97.0 F 07/05/25 09:03 Pulse 98 07/05/25 09:03 BP 128/86 07/05/25 09:03 Pulse Ox 96 07/05/25 09:03 Oxygen Delivery Method Room Air 07/05/25 09:03 BMI result Body Mass Index 27.7 Tobacco/Smoking Status: Tobacco use Status Tobacco use date assessed 07/05/25 07/05/25 09:07 Patient Tobacco Use Status Never used Tobacco 07/05/25 09:07 e-Cigarette/Vaping Use Never Used 07/05/25 09:07 PHQ-9: PHQ-9 Score PHQ-9: Total score 22 07/05/25 09:30 Depression Screening Interpretation: Positive Thrive Assessment: Date of Thrive Assessment Date Thrive assessed 02/01/25 07/05/25 09:07 Currently or been in a relationship where the following occur: No concerns reported Const General: alert; No acute distress Eyes Conjunctivae: conjunctivae normal Resp Auscultation: clear to auscultation bilaterally Cardio Rate: regular rate Rhythm: regular rhythm GI Inspection: Yes normal to inspection Extrem General: Yes normal to inspection and No edema Office Procedures Flu Questionnaire Does the patient have a severe egg allergy?: No Does the patient have severe life threatening allergies?: No Does the patient have a fever or illness today?: No Has the patient ever had Guillain-[place] Syndrome?: No Has the patient ever had any past reaction to a flu shot?: No Results AMB Hemoglobin A1c AMB Hemoglobin A1c 7.1 % Last Edit by Alize Chisholm CMA on 07/05/25 09:13 Immunizations Fluarix [id number] (PF) 45 mcg (15 mcg x 3)/0.5 mL IM syringe Performing Provider: Kerline Chadwick MD [facility] Administered by: Alize Chisholm CMA on 07/05/25 09:42 Dose Route Admin Location Dispensed Lot Number Expiration Date NDC Licensed Professional Counselor 0.5 mL IM Right Deltoid 0.5 mL [id number] 03/15/26 [id number] [employer] VIS Given Date VIS Provided VIS Publication Date 07/05/25 Single Vaccine 24 Eligibility Eligibility Date Funding Source Not [facility] Eligible 07/05/25 Private Results Reviewed Results Reviewed: Laboratory Last Values Hgb A1c (Clinic) 7.1 % (4.0-6.0) H 07/05/25 09:07 Coding Level of Care Code Est Pt Level 4 (20587) Complex EM visit Add On G2211 Diagnoses Type 2 diabetes mellitus with hyperglycemia, without long-term current use of insulin E11.65 Diabetes mellitus terminal makeup operator insulin use: without terminal makeup operator use Primary hypertension I10 Hypertension type: primary hypertension Hypercholesterolemia E78.00 MDD (major depressive disorder), recurrent episode, moderate F33.1 Assessment & Plan Assessment & Plan (1) Type 2 diabetes mellitus with hyperglycemia: Comment: Dr. Yin Code(s): E11.65 - Type 2 diabetes mellitus with hyperglycemia Category: Medical Qualifiers: Diabetes mellitus jail insulin use: without jail use Qualified Code(s): E11.65 - Type 2 diabetes mellitus with hyperglycemia Plan: Decrease the amount of carbohydrate intake, pasta, bread, rice and potatoes are all sugar and that is aside from all the sweet stuff, remember that fruits are good but they are Sweet also. Hemoglobin A1c goal of less than 7.0. Patient is not on any diabetic medication. (2) Hypertension: Code(s): I10 - Essential (primary) hypertension Category: Medical Qualifiers: Hypertension type: primary hypertension Qualified Code(s): I10 - Essential (primary) hypertension Plan: Continue with blood pressure medication. Decrease salt intake and exercise continue with monitoring for now blood pressure is under control (3) Hypercholesterolemia: Code(s): E78.00 - Pure hypercholesterolemia, unspecified Category: Medical Plan: Avoid fried foods, chicken skin, eggs, butter margarine, pastries and meat. Be it pork or beef they have a lot of cholesterol needed a blood work LDL goal of less than 100 and triglyceride of less than 150 (4) MDD (major depressive disorder), recurrent episode, moderate: Comment: Counseling Code(s): F33.1 - Major depressive disorder, recurrent, moderate Category: Social Hx Plan: Continue with counseling and therapy Plan History of Present Illness The patient is a 70-year-old male presenting for a follow-up visit. The patient has a history of Attention Deficit Hyperactivity Disorder (ADHD), obstructive sleep apnea, and obsessive-compulsive disorder. He cannot tolerate CPAP therapy for his sleep apnea. He also has hypercholesterolemia and diabetes mellitus, with a recent hemoglobin A1c of 7.1, indicating suboptimal control. The patient is not currently on any diabetic medication but has agreed to start metformin therapy. Hypertension is another chronic condition, with blood pressure currently under control. The patient has been advised to continue monitoring his blood pressure. The patient reports neuropathy and has been referred for further evaluation. He was seen by ophthalmology in March, where cataracts were noted but not visually significant, and no retinopathy was found. The patient experienced anxiety and depressive disorder, leading to ER visits in February and March. He was admitted to a respite facility for five days, which helped stabilize his condition. A head CT in February showed only chronic sinusitis. Blood work from March showed mild leukocytosis with normal platelet count and electrolytes. The patient's last cholesterol test in June 2024 showed a level of 99. Health Maintenance - Colon cancer screening with stool test completed in November 2022 - Ophthalmology follow-up in March 2025, cataracts noted but not significant - Blood work planned for cholesterol and diabetes management - Flu shot administered during the visit - Shingles, pneumonia, and tetanus vaccinations are up to date Social History - The patient experienced significant anxiety during the summer due to heat and lack of air conditioning, leading to ER visits. - The patient attempted to manage anxiety by walking, but the heat was prohibitive. - The patient is currently not engaged in regular counseling but plans to resume after processing Medicare. Review of Systems - Neurological: Reports anxiety and depressive symptoms, denies other neurological symptoms. - Endocrine: Reports elevated blood sugar levels, denies other endocrine symptoms. - Respiratory: Denies symptoms related to obstructive sleep apnea. Physical Exam Results - Labs: Blood work from March showed mild leukocytosis, normal platelet count, normal electrolytes, blood sugar of 161, hemoglobin A1c of 7.1. - Imaging: Head CT in February showed chronic sinusitis. Plan Patient was informed and verbally consented to the use of an ambient scribe for clinic note documentation during this visit. 1. Diabetes Mellitus The patient has diabetes mellitus with a hemoglobin A1c of 7.1, indicating suboptimal control. He is not currently on diabetic medication but has agreed to start metformin 500 mg twice daily. 2. Hypertension The patient's blood pressure is currently under control, and he is advised to continue monitoring it. 3. Hypercholesterolemia The patient requires new blood work to monitor cholesterol levels, with an LDL goal of less than 100 mg/dL and triglycerides less than 150 mg/dL. 4. Anxiety/Depressive Disorder The patient experienced significant anxiety and depressive symptoms, leading to ER visits and a short stay at a respite facility. He is advised to continue with counseling and therapy. 5. Obstructive Sleep Apnea The patient has obstructive sleep apnea but cannot tolerate CPAP therapy. 6. Cataracts The patient has cataracts that are not visually significant at this time, with no retinopathy noted. 7. Chronic Sinusitis A head CT in February showed chronic sinusitis, with no further intervention discussed. Discussion Notes I discussed with the patient the importance of starting metformin for diabetes management, given the elevated hemoglobin A1c of 7.1. We also reviewed the need for regular blood work to monitor cholesterol levels and the potential benefits of an VICKI inhibitor for kidney protection due to diabetes. The patient was advised to continue with counseling and therapy for anxiety and depressive symptoms. Patient Instructions - Start metformin 500 mg twice daily for diabetes management. - Continue monitoring blood pressure regularly. - Schedule and complete blood work for cholesterol and diabetes management. - Attend regular counseling sessions for anxiety management. - Receive flu shot during the visit. Orders: Orders Influenza [id number] Immunization Today Z23 - Encounter for immunization AMB Hemoglobin A1c Today Z13.9 - Encounter for screening, unspecified Medications: New metformin 500 mg PO BIDWMEAL 60 tabs 4RF losartan 25 mg PO DAILY 30 tabs 3RF E11.65 - Type 2 diabetes mellitus with hyperglycemia
[2025-07-05 09:03] VITALS: BP 128/86; PULSE 98; TEMP 36.1; O2SAT 96; BMI 27.7
== END 2025-07-05 09:52 | disposition home or self-care (01) ==
LOC: HO.HMCH 08:56
PROVIDERS: PCP Internal Medicine; Visit Provider Internal Medicine
DX: E11.65 Type 2 diabetes mellitus with hyperglycemia (principal); I10 Essential (primary) hypertension; E78.00 Pure hypercholesterolemia, unspecified; F33.1 Major depressive disorder, recurrent, moderate; Z23 Encounter for immunization; Z13.9 Encounter for screening, unspecified

== ENCOUNTER → 2025-07-05 08:55 | Outpatient (BNVA) | payer MEDICARE, SELFPAY | PROVIDERS: PCP Internal Medicine; Visit Provider Internal Medicine | DX: E11.65 Type 2 diabetes mellitus with hyperglycemia (principal); I10 Essential (primary) hypertension; E78.00 Pure hypercholesterolemia, unspecified; F33.1 Major depressive disorder, recurrent, moderate; G47.33 Obstructive sleep apnea (adult) (pediatric); F41.9 Anxiety disorder, unspecified; J32.9 Chronic sinusitis, unspecified; Z23 Encounter for immunization; Z99.89 Dependence on other enabling machines and devices | CPT/HCPCS: 83036; 90471; 90656; 96127; 99212 ==